=== PATIENT | male | born 1965 | race Caucasian/White ===

== ENCOUNTER 2018-10-27 20:23 | Inpatient (IN) | payer OTHER ==
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
--- OUTSIDE RECORDS SUMMARY | 2018-10-27 20:26 | XMS REPORT | Summary of Care ---
:1965 Author Organization [facility] Address [address] [place] [id number]- Encounter HQ Sandriner_malia(FIN) [id number] Date(s): 05/25/18 - 05/28/[address] Professional Services provided by [facility] [place] [address]- Encounter Diagnosis Left renal mass (Discharge Diagnosis) - 05/25/18 Discharge Disposition: Home or Self Care Attending Physician: Tej Cabrera DO Admitting Physician: Tej Cabrera DO Referring Physician: Davis Melendrez MD Vital Signs Most recent to oldest [Reference 1 2 3 Range]: Height 172.72 cm (05/25/18 10:45 PM) Temperature Oral [96.4-99.1 DegF] 99 DegF 98.9 DegF 98.8 DegF (05/27/18 11:00 PM) (05/27/18 7:34 PM) (05/27/18 4:54 PM) Blood Pressure [90-140/60-90 121/76 mmHg 122/80 mmHg 126/82 mmHg mmHg] (05/27/18 11:00 PM) (05/27/18 7:34 PM) (05/27/18 4:54 PM) Respiratory Rate [14-20 BRMIN] 18 BRMIN 18 BRMIN 18 BRMIN (05/27/18 11:00 PM) (05/27/18 7:34 PM) (05/27/18 4:54 PM) Peripheral Pulse Rate [60-100 87 bpm 98 bpm 76 bpm bpm] (05/27/18 11:00 PM) (05/27/18 7:34 PM) (05/27/18 4:54 PM) Weight 72.727 kg (05/25/18 10:45 PM) Body Mass Index 24.38 m2 (05/25/18 10:45 PM) Problem List Condition Effective Dates Status Health Status Informant Acute pain(Confirmed) Active Preop examination(Confirmed) Active Allergies, Adverse Reactions, Alerts Substance Reaction Severity Status NKDA Active Medications acetaminophen 650 mg, 2 tab, Route: PO, Drug form: TAB, Q4H, kg, PRN For Temp > 100.4 F, Start date: 05/25/18 16:18:00 GENERAL MEDICAL PRACTITIONER, Duration: 30 day, Stop date: 06/24/18 16:17: 00 CDT Notes: Do not exceed 4 gm/day. (Same as: Tylenol) Start Date: 05/25/18 Stop Date: 05/28/18 Status: Discontinuedaspirin 81 mg, 1 tab, Route: PO, Drug form: ECTAB, BID, Dosing Weight 72.727, kg, Start date: 05/26/18 17:00:00 GENERAL MEDICAL PRACTITIONER, Duration: 30 day, Stop date: 06/25/18 9:00:00 CDT Notes: Do not crush or chew.(Same As: Ecotrin) Start Date: 05/26/18 Stop Date: 05/28/18 Status: Discontinuedaspirin 81 mg tablet, enteric coated 81 mg=1 tab, PO, BID, # 60 tab, 3 Refill(s), Pharmacy: [facility] Start Date: 05/28/18 Stop Date: 05/28/18 Status: Discontinuedaspirin 81 mg tablet, enteric coated 81 mg=1 tab, PO, BID, please take for only 21 days, # 42 tab, 0 Refill(s), Pharmacy: [facility], Please give for only 21 days for dvt prophylaxis. Do not dispense the 30 day supply. Please call patient to report it is ready for pickup and... Start Date: 05/28/18 Stop Date: 06/18/18 Status: OrderedDextrose 50% in Water (bolus) IV 25 gm, 50 mL, Route: IVP, Drug Form: INJ, kg, PRN, PRN Blood Glucose Results, Start date: 05/25/18 16:18:00 GENERAL MEDICAL PRACTITIONER, Duration: 30 day, Stop date: 06/24/18 17:17: 00 CDT Start Date: 05/25/18 Stop Date: 05/28/18 Status: DiscontinuedDextrose 50% in Water (bolus) IV 12.5 gm, 25 mL, Route: IVP, Drug Form: INJ, kg, PRN, PRN Blood Glucose Results, Start date: 05/26/1915:18:00 GENERAL MEDICAL PRACTITIONER, Duration: 30 day, Stop date: 06/24/18 17:17: 00 CDT Start Date: 05/25/18 Stop Date: 05/28/18 Status: DiscontinuedDilaudid 4 mg, 2 tab, Route: PO, Drug form: TAB, ONCE, Dosing Weight 72.727, kg, Start date: 05/27/18 10:07:00 GENERAL MEDICAL PRACTITIONER, Stop date: 05/27/18 10:07:00 GENERAL MEDICAL PRACTITIONER Notes: (Same as: Dilaudid) Start Date: 05/27/18 Stop Date: 05/27/18 Status: DeletedDilaudid 4 mg, 2 tab, Route: PO, Drug form: TAB, ONCE, Dosing Weight 72.727, kg, Start date: 05/27/18 17:30:00 GENERAL MEDICAL PRACTITIONER, Stop date: 05/27/18 17:30:00 GENERAL MEDICAL PRACTITIONER Notes: (Same as: Dilaudid) Start Date: 05/27/18 Stop Date: 05/27/18 Status: Completeddocusate 100 mg, Route: PO, BID, kg, Start date: 05/25/18 17:00:00 GENERAL MEDICAL PRACTITIONER, Duration: 30 day , Stop date: 199:00:00 CDT Start Date: 05/25/18 Stop Date: 05/25/18 Status: Canceleddocusate 100 mg, 1 cap, Route: PO, Drug form: CAP, BID, kg, Start date: 05/25/18 17:00: 00 GENERAL MEDICAL PRACTITIONER, Duration: 30 day, Stop date: 06/24/18 9:00:00 CDT Notes: (Same as: Colace) (Do Not Crush) Start Date: 05/25/18 Stop Date: 05/28/18 Status: Discontinuedgabapentin 300 mg, 1 cap, Route: PO, Drug form: CAP, Q8Hnow, kg, Start date: 05/25/18 17:00 :00 GENERAL MEDICAL PRACTITIONER, Duration: 30 day, Stop date: 06/24/18 13:00:00 CDT Notes: (Same as: Neurontin) Start Date: 05/25/18 Stop Date: 05/28/18 Status: Discontinuedgabapentin 300 mg oral capsule 300 mg=1 cap, PO, Q8Hnow, # 21 cap, 0 Refill(s), Pharmacy: [facility] Start Date: 05/27/18 Stop Date: 06/03/18 Status: Orderedglucagon 1 mg, Route: IM, Drug form: PDR/INJ, PRN, kg, PRN Blood Glucose Results, Start date: 05/25/18 16:18:00 GENERAL MEDICAL PRACTITIONER, Duration: 30 day, Stop date: 06/24/18 17:17:00 CDT Start Date: 05/25/18 Stop Date: 05/28/18 Status: Discontinuedibuprofen 400 mg oral tablet 800 mg, 1 tab, Route: PO, Drug form: TAB, ONCE, Dosing Weight 72.727, kg, Start date: 05/26/18 23:29:00 GENERAL MEDICAL PRACTITIONER, Stop date: 05/26/18 23:29:00 GENERAL MEDICAL PRACTITIONER Notes: (Same as: Motrin)"Do Not Crush" Take with food. Start Date: 05/26/18 Stop Date: 05/27/18 Status: CompletedLidoderm 5% topical film (patch) 1 patch, Route: TOP, Bedtime, Drug form: FILM, Start date: 05/25/18 17:00:00 GENERAL MEDICAL PRACTITIONER , Duration: 30 day, Stop date: 06/22/18 21:00:00 CDT Notes: Apply only once for up to 12 hours in [id number] period (12 hours on and 12 hours off).(Same as: Lidoderm)"Remove old patch before application of new patch" Start Date: 05/25/18 Stop Date: 05/28/18 Status: DiscontinuedLovenox 40 mg, 0.4 mL, Route: SUB-Q, Drug form: INJ, [id number], kg, Start date: 05/25/18 19:00:00 GENERAL MEDICAL PRACTITIONER, Duration: 30 day, Stop date: 06/23/18 19:00:00 CDT Notes: (Same as: Lovenox) Start Date: 05/25/18 Stop Date: 05/26/18 Status: Discontinuedmorphine Sulfate 4 mg, 1 mL, Route: IVP, Drug form: SOLN, ONCE, kg, Priority: STAT, Start date: 05/25/18 5:29:00 GENERAL MEDICAL PRACTITIONER,Stop date: 05/25/18 5:29:00 GENERAL MEDICAL PRACTITIONER Notes: (Same as:MORPhine Sulfate) Start Date: 05/25/18 Stop Date: 05/25/18 Status: Completedondansetron 4 mg, 2 mL, Route: IVP, Drug form: INJ, ONCE, kg, Priority: STAT, Start date: 5:29:00 GENERAL MEDICAL PRACTITIONER, Stop date: 05/25/18 5:29:00 GENERAL MEDICAL PRACTITIONER Notes: (Same as: Zofran) MEDICATION WASTE Product Size: 4 mgProduct Wasted: ___ mg Start Date: 05/25/18 Stop Date: 05/25/18 Status: Completedondansetron 4 mg, 2 mL, Route: IVP, Drug form: INJ, Q8H, kg, PRN Nausea & Vomiting, Start date: 05/25/18 16:18:00 GENERAL MEDICAL PRACTITIONER, Duration: 30 day, Stop date: 06/24/18 16:17: 00 CDT Notes: (Same as: Zofran) MEDICATION WASTE Product Size: 4 mgProduct Wasted: 0 mg Start Date: 05/25/18 Stop Date: 05/28/18 Status: DiscontinuedoxyCODONE 5 mg immediate release 10 mg, 2 tab, Route: PO, Drug form: TAB, Q4H, kg, PRN Pain Score 7-10, Start date: 05/25/18 16:54:00CST, Duration: 30 day, Stop date: 06/24/18 16:53:00 CDT Notes: (Same as: Roxicodone) Start Date: 05/25/18 Stop Date: 05/28/18 Status: DiscontinuedoxyCODONE 5 mg immediate release 5 mg, 1 tab, Route: PO, Drug form: TAB, Q4H, kg, PRN Pain Score 4-6, Start date : 05/25/18 16:54:00 GENERAL MEDICAL PRACTITIONER, Duration: 30 day, Stop date: 06/24/18 16:53:00 CDT Notes: (Same as: Roxicodone) Start Date: 05/25/18 Stop Date: 05/28/18 Status: DiscontinuedoxyCODONE 5 mg oral capsule, immediate release 5 mg=1 cap, PO, Q6H, PRN Pain, X 7 day, # 28 cap, 0 Refill(s), given to patient Start Date: 05/27/18 Stop Date: 06/03/18 Status: Orderedremove patch 1 patch, Route: TOP, Daily, Drug form: ERFILM, Start date: 05/25/18 20:00:00 GENERAL MEDICAL PRACTITIONER , Duration: 30 day, Stop date: 06/23/18 9:00:00 CDT Notes: Remove patch 12 hours after application each day. Start Date: 05/25/18 Stop Date: 05/28/18 Status: DiscontinuedSaline Flush 0.9% 10 mL, Route: IVP, Drug Form: INJ, kg, PRN, PRN Line Flush, Start date: 5:29:00 GENERAL MEDICAL PRACTITIONER, Duration: 30 day, Stop date: 06/24/18 6:28:00 CDT Notes: Same as: BD Posiflush Sterile Start Date: 05/25/18 Stop Date: 05/28/18 Status: Discontinuedsenna 17.2 mg, 2 tab, Route: PO, Drug Form: TAB, kg, Bedtime, Start date: 05/25/18 21: 00:00 GENERAL MEDICAL PRACTITIONER, Duration:30 day, Stop date: 06/23/18 21:00:00 CDT Notes: (Same as: Senokot) Start Date: 05/25/18 Stop Date: 05/28/18 Status: Discontinuedtizanidine 2 mg, 1 tab, Route: PO, Drug form: TAB, Q6H, kg, PRN Muscle Spasms, Start date: 05/25/18 16:54:00 GENERAL MEDICAL PRACTITIONER, Duration: 30 day, Stop date: 06/24/18 16:53:00 CDT Notes: (Same As: Zanaflex) Start Date: 05/25/18 Stop Date: 05/28/18 Status: Discontinuedtizanidine 2 mg oral tablet 2 mg=1 tab, PO, Q6H, PRN Muscle Spasms, # 28 tab, 0 Refill(s), Pharmacy: [facility] Start Date: 05/27/18 Stop Date: 06/03/18 Status: OrderedVisipaque 320mg/ml 120 mL, Route: IVP, Drug Form: SOLN, kg, ONCALL, STAT, Start date: 05/25/18 6:46 :00 GENERAL MEDICAL PRACTITIONER, Duration: 1doses or times, Dose=2.2ml/kg, Max qfpj=[id number] -- "To be infused by Radiology Staff ONLY" Start Date: 05/25/18 Stop Date: 05/25/18 Status: Completed Results BLOOD BANK RESULTS Most recent to oldest [Reference Range]: 1 ABO/Rh O POS *Unknown* (05/25/18 7:12 AM) Antibody Scrn Negative (05/25/18 7:12 AM) ELECTROLYTES Most recent to oldest [Reference Range]: 1 Sodium Lvl [135-145 mEq/L] 138 mEq/L (05/25/18 7:25 AM) Potassium Lvl [3.5-5.1 mEq/L] 4.2 mEq/L (05/25/18 7:25 AM) Chloride Lvl [95-109 mEq/L] 104 mEq/L (05/25/18 7:25 AM) CO2 [24-32 mEq/L] 27 mEq/L (05/25/18 7:25 AM) AGAP [10.0-20.0 mEq/L] 11.2 mEq/L (05/25/18 7:25 AM) CHEM PANEL Most recent to oldest [Reference Range]: 1 Creatinine Lvl [0.50-1.40 mg/dL] 0.82 mg/dL (05/25/18 7:25 AM) eGFR 101 mL/min/1.73m2 1 *NA* (05/25/18 7:25 AM) BUN [7-22 mg/dL] 21 mg/dL (05/25/18 7:25 AM) Glucose Lvl [70-99 mg/dL] 93 mg/dL (05/25/18 7:25 AM) Calcium Lvl [8.5-10.5 mg/dL] 8.7 mg/dL (05/25/18 7:25 AM) Lactic Acid Lvl [0.5-2.2 mMol/L] 0.8 mMol/L (05/25/18 7:25 AM) 1Result Comment: The eGFR is calculated using the CKD-EPI formula. In most young , healthy individualsthe eGFR will be >90 mL/min/1.73m2. The eGFR declines with age. An eGFR of 60-89 may be normal insome populations, particularly the elderly, for whom the CKD-EPI formula has not been extensively validated. Use of the eGFR is not recommended in the following populations: Individuals with unstable creatinine concentrations, including patients and those with serious co-morbid conditions. Patients with extremes in muscle mass or diet. The data above are obtained from the National Kidney Disease Education Program ( NKDEP) which additionally recommends that when the eGFR is used in patients with extremes of body mass index for purposesof drug dosing, the eGFR should be multiplied by the estimated BMI.DRUG SCREEN Most recent to oldest [Reference Range]: 1 U Amph Scr [Negative] Positive *ABN* (05/25/18 5:34 PM) U Marixa Scr [Negative] Negative *NA* (05/25/18 5:34 PM) U Benzodiaz Scr [Negative] Negative *NA* (05/25/18 5:34 PM) U Cannab Scr [Negative] Negative *NA* (05/25/18 5:34 PM) U Cocaine Scr [Negative] Negative *NA* (05/25/18 5:34 PM) U Opiate Scr [Negative] Positive *ABN* (05/25/18 5:34 PM) U Phencyclidine Scr [Negative] Negative *NA* (05/25/18 5:34 PM) UDS Note See Note (05/25/18 5:34 PM) TOXICOLOGY Most recent to oldest [Reference Range]: 1 Etoh (%) <0.003 % (05/25/18 7:25 AM) Ethanol Lvl <3.0 mg/dL (05/25/18 7:25 AM) URINE AND STOOL Most recent to oldest [Reference Range]: 1 UA Turbidity [Clear] Clear (05/25/18 5:34 PM) UA Color [Yellow] Yellow *NA* (05/25/18 5:34 PM) UA pH [5.0-8.0] 6.0 (05/25/18 5:34 PM) UA Spec Grav [<=1.030] 1.020 (05/25/18 5:34 PM) UA Glucose [Negative] Negative (05/25/18 5:34 PM) UA Blood [Negative] Negative (05/25/18 5:34 PM) UA Ketones [Negative] Negative *NA* (05/25/18 5:34 PM) UA Protein [Negative] Negative (05/25/18 5:34 PM) UA Urobilinogen [0.1-1.0 EU/dL] 0.2 EU/dL (05/25/18 5:34 PM) UA Bili [Negative] Negative *NA* (05/25/18 5:34 PM) UA Leuk Est [Negative] Negative (05/25/18 5:34 PM) UA Nitrite [Negative] Negative (05/25/18 5:34 PM) UA WBC [None Seen /HPF] 0-2 /HPF (05/25/18 5:34 PM) UA RBC [0-2] None Seen (05/25/18 5:34 PM) UA Bacteria [None Seen] None Seen (05/25/18 5:34 PM) UA Sq Epi [Few] None Seen (05/25/18 5:34 PM) UA Mucus [None Seen /LPF] Few /LPF (05/25/18 5:34 PM) HEMATOLOGY Most recent to oldest [Reference Range]: 1 WBC [3.7-10.4 K/CMM] 9.6 K/CMM (05/25/18 7:25 AM) RBC [4.70-6.10 M/CMM] 4.68 M/CMM *LOW* (05/25/18 7:25 AM) Hgb [14.0-18.0 g/dL] 14.3 g/dL (05/25/18 7:25 AM) Hct [42.0-54.0 %] 41.5 % *LOW* (05/25/18 7:25 AM) MCV [80.0-94.0 fL] 88.6 fL (05/25/18 7:25 AM) MCH [27.0-31.0 pg] 30.5 pg (05/25/18 7:25 AM) MCHC [32.0-36.0 g/dL] 34.5 g/dL (05/25/18 7:25 AM) RDW [11.5-14.5 %] 14.6 % *HI* (05/25/18 7:25 AM) MPV [7.4-10.4 fL] 7.0 fL *LOW* (3/6/19 7:25 AM) Platelet [133-450 K/CMM] 308 K/CMM (05/25/18 7:25 AM) Segs [45.0-75.0 %] 62.4 % (05/25/18 7:25 AM) Lymphocytes [20.0-40.0 %] 22.4 % (05/25/18 7:25 AM) Monocytes [2.0-12.0 %] 12.9 % *HI* (05/25/18 7:25 AM) Eosinophils [0.0-4.0 %] 1.5 % (05/25/18 7:25 AM) Basophils [0.0-1.0 %] 0.8 % (05/25/18 7:25 AM) Neutrophils # [1.5-8.1 K/CMM] 6.0 K/CMM (05/25/18 7:25 AM) Lymphocytes # [1.0-5.5 K/CMM] 2.2 K/CMM (05/25/18 7:25 AM) Monocytes # [0.0-0.8 K/CMM] 1.2 K/CMM *HI* (05/25/18 7:25 AM) Eosinophils # [0.0-0.5 K/CMM] 0.1 K/CMM (05/25/18 7:25 AM) Basophils # [0.0-0.2 K/CMM] 0.1 K/CMM (05/25/18 7:25 AM) ACT (TEG) Rapid [86-118 seconds] 105 seconds (05/25/18 7:25 AM) Split Point Rapid 0.5 minutes *NA* (05/25/18 7:25 AM) R-time Rapid [0.4-0.7 minutes] 0.6 minutes (05/25/18 7:25 AM) K-time Rapid [0.6-2.3 minutes] 0.9 minutes (05/25/18 7:25 AM) Angle Rapid [64-80 degrees] 78 degrees (05/25/18 7:25 AM) Max Amplitude Rapid [52-71 mm] 69 mm (05/25/18 7:25 AM) G-value Rapid [5.0-11.6 K d/sc] 11.3 K d/sc (05/25/18 7:25 AM) Estimated % Lysis Rapid [0.0-7.5 %] 1.7 % (05/25/18 7:25 AM) Immunizations Given and Recorded Vaccine Date Status Refusal Reason influenza virus vaccine, inactivated 05/27/18 Given Procedures Procedure Date Related Diagnosis Body Site Status Spinal fusion Completed Social History Social History Type Response Substance Abuse Use: Current. Type: Methamphetamines. Alcohol Never Smoking Status Current every day smoker; Type: Cigarettes; Previous treatment : None; Ready to change: No; Concerns about tobacco use in household: No; Exposure to Tobacco Smoke None; Cigarette Smoking Last 365 Days No; Reg Smoking Cessation Counseling No entered on: 05/25/18 Assessment and Plan Extracted from: Title: Prevent Clot Study ASA 81mg BID Author: Kati Orr Date: 05/26/18 ASA ARM Patient signed consent for participation in the PREVENT Clot study on 05/26/18 and has been randomized to the Aspirin Group. Please STOP Enoxaparin STAT. The patient will receive Aspirin (ASA) 81mg BID for DVT PPX. *Please discharge patient with the assigned DVT PPX for 21 days* For questions, please call: [phone] Extracted from: Title: History and Physical Author: Jenelle Witt MD [...] CXR, echo, etc. 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
--- OUTSIDE RECORDS SUMMARY | 2018-10-27 20:27 | XMS REPORT ---
:1965 [facility] Address [address] [place] [address] Care Team Providers Name Role Phone Unavailable Unavailable Unavailable Problems This patient has no known problems. Allergies, Adverse Reactions, Alerts This patient has no known allergies or adverse reactions. Medications This patient has no known medications.
[2018-10-27] MEDS ORDERED: NA CHLORIDE 0.9% 2,000 ML ONE (21:06)
[2018-10-27] MEDS ORDERED: CLINDAMYCIN 900MG/D5W 900 MG/50 ML IVPB IV ONE (21:06)
[2018-10-27] MEDS ORDERED: NA CHLORIDE 0.9% 250 ML ONE (21:06)
[2018-10-27 22:16] LABS: Absolute Lymphocytes (CBC) 0.7 K/uL (0.7-4.9); Basophils % 0.1 % (0-1.3); Hematocrit 37.2 % (39.6-49.0); Lymphocytes % 3.3 % (15.3-44.8); MPV 8.2 fL (7.6-11.3); RBC Red Blood Cell Count 4.12 M/uL (4.33-5.43)
[2018-10-27 22:20] LABS: ALT/SGPT 20 U/L (12-78); AST/SGOT 17 U/L (15-37); Albumin 2.8 g/dL (3.4-5.0); Alkaline Phosphatase 139 U/L (45-117); BUN Blood Urea Nitrogen 18 mg/dL (7-18); Bicarbonate 27 mmol/L (21-32); Bilirubin Total 0.4 mg/dL (0.2-1.0); Glucose Level 139 mg/dL (74-106); Potassium 3.8 mmol/L (3.5-5.1); Protein, Total 7.5 g/dL (6.4-8.2); Sodium Level 144 mmol/L (136-145)
--- NOTE | 2018-10-27 22:58 | EDPHYS ---
Physician Documentation [facility] Name: Joby Pena Age: 53 yrs Sex: Male : 1965 Arrival Date: 10/27/2018 Time: 20:30 Bed 13 Private MD: ED Physician Dionicio Alcantar Historical: - Allergies: 10/27 20:35 No Known Allergies; aj - Home Meds: 20:36 gabapentin oral oral [Active]; aj - PMHx: 20:35 Hepatitis; aj - PSHx: 20:35 back; aj - Immunization history:: Last tetanus immunization: unknown. - Social history:: Smoking status: Patient uses tobacco products, smokes one pack cigarettes per day. - Ebola Screening: : Patient negative for fever greater than or equal to 101.5 degrees Fahrenheit, and additional compatible Ebola Virus Disease symptoms Patient denies exposure to infectious person Patient denies travel to an Ebola-affected area in the 21 days before illness onset No symptoms or risks identified at this time. Vital Signs: 20:36 BP 140 / 80; Pulse 120; Resp 19; Temp 98.6; Pulse Ox 98% on R/A; Weight 74.84 kg; aj Height 5 ft. 8 in. (172.72 cm); 21:30 BP 122 / 85; Pulse 90; Resp 16; Pulse Ox 100% on R/A; tr5 22:30 BP 123 / 84; Pulse 93; Resp 16; Pulse Ox 100% on R/A; oe 23:45 BP 134 / 88; Pulse 95; Resp 16; Pulse Ox 100% on R/A; oe 10/28 00:38 BP 131 / 88; Pulse 111; Resp 18; Pulse Ox 99% on R/A; oe 10/27 20:36 Body Mass Index 25.09 (74.84 kg, 172.72 cm) aj MDM: 10/27 21:01 Patient medically screened. ps1 10/27 21:02 Order name: CBC with Diff; Complete Time: 00:09 ps1 10/27 21:02 Order name: CMP; Complete Time: 22:40 ps1 10/27 21:02 Order name: Lactate; Complete Time: 22:40 ps1 10/27 21:02 Order name: Procalcitonin; Complete Time: 22:58 ps1 10/27 21:42 Order name: Blood Culture Adult (2) ps1 10/27 22:21 Order name: Manual Differential; Complete Time: 00:09 EDMS 10/28 02:33 Order name: Urine Dipstick--Ancillary (enter results) cm6 10/28 03:18 Order name: Urine Drug Screen; Complete Time: 04:32 EDMS 10/28 04:12 Order name: Urine Dipstick-Ancillary; Complete Time: 04:32 EDMS 10/28 05:18 Order name: Urinalysis; Complete Time: 06:19 EDMS 10/28 05:32 Order name: CBC with Automated Diff; Complete Time: 06:03 EDMS 10/28 05:45 Order name: Basic Metabolic Panel; Complete Time: 06:03 EDMS 10/28 05:45 Order name: Magnesium; Complete Time: 06:03 EDMS 10/28 06:09 Order name: Urine Microscopic Only; Complete Time: 06:19 EDMS 10/27 21:02 Order name: Ankle Left 3 View XRAY ps1 10/27 23:17 Order name: Extremity Venous Uni Ltd EDMS 10/28 11:59 Order name: Basic Metabolic Panel EDMS Administered Medications: 21:47 Drug: NS 0.9% (30 ml/kg) 30 ml/kg Route: IV; Rate: bolus; Site: left forearm; rr5 23:00 Follow up: IV Status: Completed infusion bp 22:30 Drug: Clindamycin 900 mg Route: IVPB; Infused Over: 30 mins; Site: left antecubital; tr5 10/28 00:32 Follow up: Rate change calculated rate; IV Status: Completed infusion tr5 Disposition: 10/27/18 22:57 Hospitalization ordered by Francisco Trejo for Inpatient Admission. Preliminary diagnosis is Right leg cellulitis. - Bed requested for Telemetry/MedSurg (Inpatient). - Status is Inpatient Admission. bp - Condition is Stable. - Problem is new. - Symptoms are unchanged. UTI on Admission? No Signatures: Dispatcher [employer] EDWV Shania Warner Amanda RN RN Meg Ashby, PRAVEEN-C CAR TOP BOLTER-Csnw Irvin Kovacs RN RN bp Dionicio Alcantar MD MD ps1 Roque, Raymond RN RN rr5 Enoc Iqbal RN RN tr5 Corrections: (The following items were deleted from the chart) 10/27 23:28 22:57 Hospitalization Ordered by Francisco Trejo DO for Inpatient Admission. Preliminary snw diagnosis is Right leg cellulitis. Bed requested for Telemetry/MedSurg (Inpatient). Status is Inpatient Admission. Condition is Stable. Problem is new. Symptoms are unchanged. UTI on Admission? No. ps1 10/28 11:28 10/27 23:28 10/27/2018 22:57 Hospitalization Ordered by Francisco Trejo DO for Inpatient bd Admission. Preliminary diagnosis is Right leg cellulitis. Bed requested for [facility] ER HOLD. Status is Inpatient Admission. Condition is Stable. Problem is new. Symptoms are unchanged. UTI on Admission? No. snw 10/28 12:35 11:28 10/27/2018 22:57 Hospitalization Ordered by Francisco Trejo DO for Inpatient bp Admission. Preliminary diagnosis is Right leg cellulitis. Bed requested for Telemetry/MedSurg (Inpatient). Status is Inpatient Admission. Condition is Stable. Problem is new. Symptoms are unchanged. UTI on Admission? No. bd
--- NOTE | 2018-10-27 22:58 | ER ---
Nurse's Notes [facility] Name: Joby Pena Age: 53 yrs Sex: Male : 1965 Arrival Date: 10/27/2018 Time: 20:30 Bed 13 Private MD: Diagnosis: Right leg cellulitis Presentation: 10/27 20:34 Presenting complaint: Patient states: Left leg swelling for 2 days. Transition of care: aj patient was not received from another setting of care. Onset of symptoms was October 25, 2018. Risk Assessment: Do you want to hurt yourself or someone else? Patient reports no desire to harm self or others. Initial Sepsis Screen: Does the patient meet any 2 criteria? HR > 90 bpm. Does the patient have a suspected source of infection? Yes:. Care prior to arrival: None. 20:34 Method Of Arrival: Ambulatory 20:34 Acuity: GALILEA 3 Triage Assessment: 20:35 General: Appears in no apparent distress. comfortable, Behavior is calm, cooperative, aj appropriate for age. Pain: Complains of pain in left leg. Neuro: Level of Consciousness is awake, alert, obeys commands, Oriented to person, place, time, situation, Appropriate for age. Respiratory: Airway is patent Respiratory effort is even, unlabored, Respiratory pattern is regular, symmetrical. Derm: Skin is intact, is healthy with good turgor, Skin is pink, warm \T\ dry. normal. Historical: - Allergies: 20:35 No Known Allergies; aj - Home Meds: 20:36 gabapentin oral oral [Active]; aj - PMHx: 20:35 Hepatitis; - PSHx: 20:35 back; aj - Immunization history:: Last tetanus immunization: unknown. - Social history:: Smoking status: Patient uses tobacco products, smokes one pack cigarettes per day. - Ebola Screening: : Patient negative for fever greater than or equal to 101.5 degrees Fahrenheit, and additional compatible Ebola Virus Disease symptoms Patient denies exposure to infectious person Patient denies travel to an Ebola-affected area in the 21 days before illness onset No symptoms or risks identified at this time. Screenin:45 Abuse screen: Denies threats or abuse. Nutritional screening: No deficits noted. tr5 Tuberculosis screening: No symptoms or risk factors identified. Fall Risk Fall in past 12 months (25 points). No secondary diagnosis (0 pts). No IV (0 pts). Ambulatory Aid- None/Bed Rest/Nurse Assist (0 pts). Gait- Normal/Bed Rest/Wheelchair (0 pts) Mental Status- Oriented to own ability (0 pts). Total Luevano Fall Scale indicates No Risk (0-24 pts). Assessment: 20:45 General: Appears uncomfortable, unkempt, Behavior is calm, cooperative, appropriate for tr5 age. Pain: Complains of pain in lateral aspect of right calf, right ankle, lateral aspect of right foot, right calf, right Achilles, right heel, medial aspect of right calf, medial aspect of right foot, right de la rosa, anterior aspect of right ankle and dorsum of right foot Pain does not radiate. Pain currently is 8 out of 10 on a pain scale. Quality of pain is described as heavy, squeezing, Pain began 2-3 days ago. Neuro: Level of Consciousness is awake, alert, obeys commands, Oriented to person, place, time, Early Interventionist are equal bilaterally Moves all extremities. Speech is normal. Cardiovascular: Heart tones present Bruits absent Capillary refill < 3 seconds Pulses are all present. Edema is 4+ to left ankle, left foot and left toes. Respiratory: Airway is patent Trachea midline Breath sounds are clear bilaterally. GI: No signs and/or symptoms were reported involving the gastrointestinal system. : No signs and/or symptoms were reported regarding the genitourinary system. EENT: No signs and/or symptoms were reported regarding the EENT system. Derm: Skin temperature is hot LLE warmth noted. Musculoskeletal: Capillary refill < 3 seconds, Range of motion: intact in all extremities, Swelling present in left foot and left leg. 22:09 Reassessment: Patient and/or family updated on plan of care and expected duration. Pain tr5 level reassessed. Patient is alert, oriented x 3, equal unlabored respirations, skin warm/dry/pink. 23:00 Reassessment: Patient and/or family updated on plan of care and expected duration. Pain tr5 level reassessed. Patient is alert, oriented x 3, equal unlabored respirations, skin warm/dry/pink. 10/28 00:00 Reassessment: Patient and/or family updated on plan of care and expected duration. Pain tr5 level reassessed. 01:00 Reassessment: Patient and/or family updated on plan of care and expected duration. Pain tr5 level reassessed. Patient is alert, oriented x 3, equal unlabored respirations, skin warm/dry/pink. 07:01 Reassessment: PT ON ER HOLD, SEE [facility]. bp Vital Signs: 10/27 20:36 BP 140 / 80; Pulse 120; Resp 19; Temp 98.6; Pulse Ox 98% on R/A; Weight 74.84 kg; aj Height 5 ft. 8 in. (172.72 cm); 21:30 BP 122 / 85; Pulse 90; Resp 16; Pulse Ox 100% on R/A; tr5 22:30 BP 123 / 84; Pulse 93; Resp 16; Pulse Ox 100% on R/A; oe 23:45 BP 134 / 88; Pulse 95; Resp 16; Pulse Ox 100% on R/A; oe 10/28 00:38 BP 131 / 88; Pulse 111; Resp 18; Pulse Ox 99% on R/A; oe 10/27 20:36 Body Mass Index 25.09 (74.84 kg, 172.72 cm) aj ED Course: 10/27 20:30 Patient arrived in ED. ds1 20:35 Triage completed. aj 20:36 Arm band placed on left wrist. Patient placed in an exam room. aj 20:37 Enoc Iqbal, RN is Primary Nurse. tr5 20:45 Placed in gown. Bed in low position. Call light in reach. Door closed. Noise minimized. tr5 20:47 Dionicio Alcantar MD is Attending Physician. ps1 21:20 Inserted saline lock: 20 gauge in left antecubital area, using aseptic technique. Blood oe collected. 21:37 Ankle Left 3 View XRAY In Process Unspecified. EDMS 22:00 Awaiting lab results. tr5 22:19 Notified ED physician of a critical lab result(s). WBC 23.[address] Alcantar. tr5 22:46 Appears to be sleeping. tr5 22:57 Francisco Trejo DO is Hospitalizing Provider. ps1 10/28 01:00 No provider procedures requiring assistance completed. Patient admitted, IV remains in tr5 place. 01:30 Awaiting bed assignment. tr5 Administered Medications: 10/27 21:47 Drug: NS 0.9% (30 ml/kg) 30 ml/kg Route: IV; Rate: bolus; Site: left forearm; rr5 23:00 Follow up: IV Status: Completed infusion bp 22:30 Drug: Clindamycin 900 mg Route: IVPB; Infused Over: 30 mins; Site: left antecubital; tr5 10/28 00:32 Follow up: Rate change calculated rate; IV Status: Completed infusion tr5 Outcome: 10/27 22:57 Decision to Hospitalize by Provider. ps1 10/28 01:00 Admitted to ER Hold. Please see [facility] for further documentation. tr5 Condition: stable Instructed on the need for admit. 12:35 Patient left the ED. bp Signatures: Dispatcher [employer] EDMS Malou Pang RN RN Emilie Arenas ds1 Adis Timmons Brian, RN RN bp Dionicio Alcantar MD MD ps1 Kilo Egan RN RN rr5 Enoc Iqbal RN RN tr5 Corrections: (The following items were deleted from the chart) 02:25 10/27 23:00 Reassessment: Patient and/or family updated on plan of care and expected tr5 duration. Pain level reassessed. Patient is alert, oriented x 3, equal unlabored respirations, skin warm/dry/pink. tr5
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
[2018-10-27 23:56] LABS: Blood Morphology Comment NOT SEEN (NOT SEEN); Platelet Estimate ADEQ
[2018-10-28] MEDS ORDERED: ALBUTEROL 2.5 MG/3 ML NEB SOL NEB PRN (00:46)
[2018-10-28] MEDS ORDERED: IPRATROPIUM BROM 0.5MG/2.5ML NEB PRN (00:46)
[2018-10-28] MEDS ORDERED: ONDANSETRON 4 MG/2 ML VIAL IV PRN (00:46)
[2018-10-28 02:41] VITALS: BMI 25.0
[2018-10-28] MEDS ORDERED: NA CHLORIDE 0.9% 1,000 ML ONE (02:42)
[2018-10-28] MEDS: NA CHLORIDE 0.9% 1,000 ML IV SCH ×2 (03:00→14:07)
[2018-10-28 03:17] LABS: Barbiturates NEGATIVE (NEGATIVE); Benzodiazepines NEGATIVE (NEGATIVE); Cocaine POSITIVE (NEGATIVE); METHAMPHETAM POSITIVE (NEGATIVE); Methadone NEGATIVE (NEGATIVE); Opiates NEGATIVE (NEGATIVE); Phencyclidine NEGATIVE (NEGATIVE); THC Cannibis NEGATIVE (NEGATIVE)
[2018-10-28 04:11] LABS: Urine Blood NEGATIVE (NEG); Urine Glucose 1+ (NEG); Urine Protein 2+ (NEG)
[2018-10-28 05:05] LABS: Urine Appearance CLEAR; Urine Blood NEGATIVE (NEG); Urine Color DK YELLOW; Urine Glucose 2+ (NEG); Urine Protein 1+ (NEG); Urine Specific Gravity >=1.030 (1.005-1.030)
[2018-10-28 05:16] LABS: Urine Microscopic Reflex ORDER UMIC
[2018-10-28 05:17] LABS: Urine Bilirubin 1+ (NEG)
[2018-10-28 05:30] LABS: Basophils % 0.1 % (0-1.3); Hematocrit 31.4 % (39.6-49.0); Lymphocytes % 5.1 % (15.3-44.8); MPV 7.8 fL (7.6-11.3); RBC Red Blood Cell Count 3.54 M/uL (4.33-5.43)
[2018-10-28 05:45] LABS: BUN Blood Urea Nitrogen 15 mg/dL (7-18); Bicarbonate 25 mmol/L (21-32); Glucose Level 97 mg/dL (74-106); Magnesium 1.9 mg/dL (1.8-2.4); Potassium 3.6 mmol/L (3.5-5.1); Sodium Level 141 mmol/L (136-145)
[2018-10-28] MEDS ORDERED: HYDROCODONE/APAP 7.5/325 MG TAB ONE (05:49)
[2018-10-28] MEDS: HYDROCODONE/APAP 7.5/325 MG TAB PO PRN ×2 (05:52→17:42)
[2018-10-28] MEDS ORDERED: VANCOMYCIN 1.25 GM in NA CHLORIDE 0.9% 500 ML IVPB SCH (06:00)
[2018-10-28 06:09] LABS: Urine Bacteria <20 /HPF (NONE SEEN); Urine Culture Reflex Order NOT NEEDED; Urine Mucus 3+ /HPF (NONE SEEN); Urine RBC <5 /HPF (NONE SEEN)
[2018-10-28] MEDS ORDERED: POTASSIUM 25 MEQ EFFERV TAB PO ONE (06:32)
[2018-10-28] MEDS: ENOXAPARIN 40 MG/0.4 ML SQ SCH (09:00)
[2018-10-28] MEDS: THIAMINE HCL 100 MG TABLET PO SCH (09:00)
[2018-10-28] MEDS ORDERED: CEFEPIME 1 GM/VIAL IV SCH (09:00)
[2018-10-28] MEDS: TRAMADOL HCL 50 MG TAB PO PRN ×2 (09:00→20:22)
[2018-10-28] MEDS: NICOTINE 21 MG/PAT TD SCH (09:00)
[2018-10-28] MEDS: GABAPENTIN 300 MG CAP PO SCH ×3 (09:00→20:15)
[2018-10-28] MEDS: FOLIC ACID 1 MG TABLET PO SCH (09:00)
[2018-10-28] MEDS: CEFEPIME/SWI 1gm 10 ML IV SCH ×2 (09:00→20:15)
[2018-10-28] MEDS: FAMOTIDINE 20 MG TAB PO SCH ×2 (09:00→20:15)
[2018-10-28] MEDS ORDERED: THIAMINE HCL 100 MG TABLET ONE (09:17)
[2018-10-28] MEDS ORDERED: GABAPENTIN 300 MG CAP ONE (09:17)
[2018-10-28] MEDS ORDERED: FOLIC ACID 1 MG TABLET ONE (09:17)
[2018-10-28] MEDS ORDERED: NICOTINE 21 MG/PAT TD ONE (09:17)
[2018-10-28] MEDS ORDERED: ENOXAPARIN 40 MG/0.4 ML SQ ONE (09:18)
[2018-10-28] MEDS ORDERED: FAMOTIDINE 20 MG TAB ONE (09:18)
--- NOTE | 2018-10-28 09:20 | RAD REPORT ---
EXAM DESCRIPTION: US - Extremity Venous Uni Ltd - 10/28/2018 8:43 am CLINICAL HISTORY: Left lower extremity pain and swelling COMPARISON: None. TECHNIQUE: Real-time sonographic evaluation of the left lower extremity deep venous system was perfo rmed. FINDINGS: Normal compressibility, flow augmentation, phasic flow and spontaneous flow are identified in the left lower extremity common femoral, superficial femoral, popliteal and posterior tibial vein s. No intraluminal filling defects seen. Interstitial edema is seen with no drainable fluid collectio n in the soft tissues. Multiple left groin lymph nodes are present largest measuring 2.8 x 1.1 cm. These are most likely mai ctive. These are not clearly malignant. IMPRESSION: No DVT in the left lower extremity. Multiple left groin lymph nodes are most likely reactive.
[2018-10-28] MEDS ORDERED: TRAMADOL HCL 50 MG TAB ONE (09:26)
--- NOTE | 2018-10-28 10:48 | RAD REPORT ---
EXAM DESCRIPTION: RAD - Ankle Left 3 View - 10/27/2018 9:37 pm CLINICAL HISTORY: 53 years Male, PAIN COMPARISON: None. FINDINGS: There is chronic deformity of the distal fibular diaphysis. Previous fracture. No acute fr actures demonstrated. There are small calcaneal spurs. There is severe soft tissue swelling about the medial and lateral malleoli. IMPRESSION: 1. Severe soft tissue swelling. 2. Chronic deformity of the distal fibula previous fracture. Electronically signed by: Raleigh Gupta MD 10/27/2018 10:53 PM CDT Due to temporary technical issues with the PACS/Fluency reporting system, reports are being signed by the in house radiologist as a courtesy to ensure prompt reporting. The interpreting radiologist is f ully responsible for the content of the report.
[2018-10-28 11:57] LABS: BUN Blood Urea Nitrogen 13 mg/dL (7-18); Bicarbonate 25 mmol/L (21-32); Glucose Level 153 mg/dL (74-106); Potassium 3.7 mmol/L (3.5-5.1); Sodium Level 141 mmol/L (136-145)
--- NOTE | 2018-10-28 14:29 | PN ---
Date of Progress Note: 10/28/2018 Subjective: Patient is seen and examined. Chart reviewed and case discussed with RN. Patient is so mewhat somnolent, complaining of redness, swelling, and pain of his left lower extremity. Medications: List reviewed. Physical Examination: Vital Signs: Temperature 98.9, heart rate 90, blood pressure 99/64, respirations 16, O2 at 97% on ro om air. General: Awake, alert, oriented x3, in some mild distress, ill-appearing male. CV: S1, S2. Regular rate and rhythm. Peripheral pulses present. Respiratory: Clear to auscultation bilaterally. No wheezing or stridor. No use of accessory muscle s. Gastrointestinal: Abdomen is soft, nontender, nondistended. Positive bowel sounds. No guarding or rigidity. Extremities: No clubbing or cyanosis. Patient has edema of bilateral lower extremities, left worse than right. No calf tenderness. Neuro: Cranial nerves 2 through 12 intact grossly. No focal neurological deficits. Speech is isi l. Skin: Patient has erythema of the left lower extremity with multiple abrasions, swelling, and tender ness to palpation. Laboratory Data: WBC 19.7, H and H of 11.4 and 31.4, platelets 305, neutrophils 83%, no bands. Sodi um 141, potassium 3.7, chloride 109, CO2 of 25, BUN 13, creatinine 0.71, glucose 153, calcium 8.4. B lood cultures pending. Doppler shows no DVT in the left lower extremity. He does have reactive lymp h nodes in the groin. Ankle x-ray of the left shows severe soft tissue swelling, chronic deformity o f the distal fibula, previous fracture, personally reviewed. Assessment And Plan: A 53-year-old male with: 1.Cellulitis of the left lower extremity. We will continue with IV antibiotics. Cultures are pendi ng. Patient had multiple falls and abrasions leading to the cellulitis. Continue with IV fluids. 2.Previous chronic fracture of the distal fibula with chronic deformity. No acute intervention. Co ntinue with pain control. 3.Polysubstance abuse with cocaine and methamphetamine. 4.Chronic pain syndrome. We will continue gabapentin. 5.Mild dehydration. Continue IV fluid. 6.Nicotine dependence with cigarette smoking. Counseled. We will continue with nicotine patch. 7.Deep venous thrombosis prophylaxis with Lovenox. Continue local wound care for the left lower extremity. Continue IV antibiotics. Followup on blood cultures. Likely discharge in the next 48 to 72 hours depending on clinical response. We will have social work assist patient with his living situation, currently homeless. Patient states he has [employer] before. They only let him stay for 3 days, and he states that he cannot go back for 1 year. Patient does not have any friends or family that he can live with at this time. Patient re yasmin at risk for worsening of his wound as he is homeless and is not able to provide adequate wound care for himself. Ideally, would need to be placed for wound care. /DAISY Voice ID: [id number] Report ID: [id number]
[2018-10-28] MEDS: VANCOMYCIN 1.25 GM in NA CHLORIDE 0.9% 250 ML IVPB SCH (17:44)
[2018-10-29] MEDS: ACETAMINOPHEN 500 MG TAB PO PRN ×4 (01:12→22:55)
[2018-10-29] MEDS: NA CHLORIDE 0.9% 1,000 ML IV SCH ×2 (06:00→16:46)
[2018-10-29] MEDS: VANCOMYCIN 1.25 GM in NA CHLORIDE 0.9% 250 ML IVPB SCH ×2 (06:01→17:24)
[2018-10-29 06:08] LABS: Absolute Lymphocytes (CBC) 1.2 K/uL (0.7-4.9); Basophils % 0.4 % (0-1.3); Hematocrit 31.5 % (39.6-49.0); Lymphocytes % 7.7 % (15.3-44.8); MPV 8.1 fL (7.6-11.3); RBC Red Blood Cell Count 3.55 M/uL (4.33-5.43)
[2018-10-29 06:31] LABS: BUN Blood Urea Nitrogen 9 mg/dL (7-18); Bicarbonate 23 mmol/L (21-32); Glucose Level 87 mg/dL (74-106); Magnesium 1.7 mg/dL (1.8-2.4); Potassium 3.6 mmol/L (3.5-5.1); Sodium Level 139 mmol/L (136-145)
[2018-10-29] MEDS: ENOXAPARIN 40 MG/0.4 ML SQ SCH (08:45)
[2018-10-29] MEDS: NICOTINE 21 MG/PAT TD SCH (08:46)
[2018-10-29] MEDS: FAMOTIDINE 20 MG TAB PO SCH ×2 (08:46→20:59)
[2018-10-29] MEDS: THIAMINE HCL 100 MG TABLET PO SCH (08:47)
[2018-10-29] MEDS: CEFEPIME/SWI 1gm 10 ML IV SCH ×2 (08:47→20:56)
[2018-10-29] MEDS: GABAPENTIN 300 MG CAP PO SCH ×3 (08:47→20:59)
[2018-10-29] MEDS: FOLIC ACID 1 MG TABLET PO SCH (08:50)
[2018-10-29] MEDS ORDERED: POTASSIUM 25 MEQ EFFERV TAB PO ONE (09:00)
[2018-10-29] MEDS ORDERED: MAGNESIUM SULFATE 1 gm IVPB 1 GM/100 ML BAG IV ONE (09:00)
[2018-10-29] MEDS: HYDROCODONE/APAP 7.5/325 MG TAB PO PRN ×2 (15:29→20:58)
--- NOTE | 2018-10-29 17:36 | PN ---
Date of Progress Note: 10/29/2018 Subjective: Patient is seen and examined. Chart reviewed and case discussed with RN. Patient state s his swelling has improved, however, not completely gone. The patient still has a low-grade fevers. Medications: List reviewed. Physical Examination: Vital Signs: Temperature 99, heart rate 80, blood pressure 120/77, respirations 18. O2 of 95% on ro om air. General: Awake, alert, and oriented x3, in no acute distress. CV: S1, S2. Peripheral pulses present. No murmurs. Respiratory: Moving air well bilaterally. No wheezing or stridor. Gastrointestinal: Abdomen is soft, nontender, nondistended. Positive bowel sounds. No guarding or rigidity. Extremities: No clubbing, cyanosis. The patient has peripheral edema bilateral lower extremities. Skin: Left lower extremity erythema, tenderness to palpation. Multiple abrasions on both lower extr emities. Neurologic: Nonfocal. Laboratory Data: Sodium 139, potassium 3.6, chloride 107, CO2 of 23, BUN 9, creatinine 0.55. Glucos e 87, calcium 7.8, magnesium 1.7. WBC 15, H and H of 10.9 and 31.5, platelets 357, neutrophils 81%. Blood cultures, no growth to date. Assessment: A 53-year-old male with. 1.Cellulitis of the left lower extremity, improving with IV antibiotic therapy. Continue with local wound care as well. White count is trending down. Cultures are negative to date. ID has been cons ulted. 2.Chronic fracture of the distal fibula with deformity. Continue with pain control. This is from p revious trauma. 3.Polysubstance abuse with cocaine and methamphetamine, counseled. 4.Chronic pain syndrome. Continue gabapentin. 5.Mild dehydration. We will continue with IV fluids. 6.Nicotine dependence with cigarette smoking, counseled. 7.Deep venous thrombosis prophylaxis with Lovenox. Plan: Likely discharge in the next 24 to 48 hours. ID consultation. table worker packager to help with carolyn cement. SA/MODL Voice ID: [id number] Report ID: [id number]
[2018-10-29 18:37] LABS: Absolute Lymphocytes (CBC) 1.1 K/uL (0.7-4.9); Basophils % 0.2 % (0-1.3); Hematocrit 33.6 % (39.6-49.0); Lymphocytes % 7.4 % (15.3-44.8); RBC Red Blood Cell Count 3.77 M/uL (4.33-5.43)
[2018-10-29 18:53] LABS: ALT/SGPT 17 U/L (12-78); AST/SGOT 17 U/L (15-37); Albumin 1.8 g/dL (3.4-5.0); Alkaline Phosphatase 139 U/L (45-117); BUN Blood Urea Nitrogen 9 mg/dL (7-18); Bicarbonate 25 mmol/L (21-32); Bilirubin Total 0.2 mg/dL (0.2-1.0); CKMB Creatine Kinase MB < 1.0 ng/mL (0.3-3.6); Glucose Level 129 mg/dL (74-106); Potassium 3.6 mmol/L (3.5-5.1); Sodium Level 138 mmol/L (136-145)
--- NOTE | 2018-10-29 19:10 | RAD REPORT ---
EXAM DESCRIPTION: RAD - Chest Single View - 10/29/2018 6:49 pm CLINICAL HISTORY: fluid overload Chest pain. COMPARISON: <Comparisons> FINDINGS: Portable technique limits examination quality. Mild bilateral pulmonary opacities are noted suspicious for mild pulmonary edema. Mild atelectasis is also likely present in both lung bases. The heart is mildly prominent size. Trace pleural effusions suspected. No displaced fractures. IMPRESSION: Mild CHF versus volume overload pattern.
[2018-10-29 19:14] LABS: Blood Morphology Comment NOT SEEN (NOT SEEN); Platelet Estimate ADEQ; Urine White Blood Cell Casts OK
[2018-10-30] MEDS: TRAMADOL HCL 50 MG TAB PO PRN ×2 (01:16→16:52)
[2018-10-30] MEDS: NA CHLORIDE 0.9% 1,000 ML IV SCH (01:16)
[2018-10-30] MEDS ORDERED: HYDROCORTISONE SUC 100 MG INJ IV ONE (01:36)
[2018-10-30] MEDS ORDERED: ALBUMIN HUMAN 25% 100 ML IV ONE (01:36)
[2018-10-30] MEDS ORDERED: FUROSEMIDE 20 MG/ 2ML VIAL IV ONE (01:36)
[2018-10-30] MEDS: HYDROCODONE/APAP 7.5/325 MG TAB PO PRN ×3 (03:52→21:02)
[2018-10-30] MEDS: VANCOMYCIN 1.5 GM in NA CHLORIDE 0.9% 500 ML IVPB SCH ×2 (05:01→16:53)
[2018-10-30 06:05] LABS: Absolute Lymphocytes (CBC) 0.6 K/uL (0.7-4.9); Basophils % 0.3 % (0-1.3); Hematocrit 33.4 % (39.6-49.0); Lymphocytes % 3.9 % (15.3-44.8); RBC Red Blood Cell Count 3.76 M/uL (4.33-5.43)
[2018-10-30 06:14] LABS: BUN Blood Urea Nitrogen 9 mg/dL (7-18); Bicarbonate 25 mmol/L (21-32); Glucose Level 145 mg/dL (74-106); Potassium 3.8 mmol/L (3.5-5.1); Sodium Level 140 mmol/L (136-145)
[2018-10-30] MEDS ORDERED: POTASSIUM CL SA 10 MEQ TAB PO ONE (06:20)
[2018-10-30 06:27] LABS: Blood Morphology Comment NOT SEEN (NOT SEEN); Platelet Estimate ADEQ; Toxic Granulation 1+
[2018-10-30] MEDS: ENOXAPARIN 40 MG/0.4 ML SQ SCH (08:13)
[2018-10-30] MEDS: NICOTINE 21 MG/PAT TD SCH (08:13)
[2018-10-30] MEDS: THIAMINE HCL 100 MG TABLET PO SCH (08:14)
[2018-10-30] MEDS: FAMOTIDINE 20 MG TAB PO SCH ×2 (08:14→21:03)
[2018-10-30] MEDS: FOLIC ACID 1 MG TABLET PO SCH (08:14)
[2018-10-30] MEDS: GABAPENTIN 300 MG CAP PO SCH ×3 (08:14→21:01)
[2018-10-30] MEDS: CEFEPIME/SWI 1gm 10 ML IV SCH ×2 (08:14→21:03)
[2018-10-30] MEDS: JUVEN PACKET PO SCH ×2 (08:15→21:00)
--- NOTE | 2018-10-30 15:01 | PN ---
Date of Progress Note: 10/30/2018 Subjective: Patient is seen and examined. Chart reviewed and case discussed with RN. Patient had s ome difficulty breathing yesterday, who looked more lethargic and had complained of generalized malai se and swelling. Chest x-ray was done, which showed mild CHF. The patient was given Lasix and impro lance. Medications: List reviewed. Physical Examination: Vital Signs: Temperature 98, heart rate 86, blood pressure 141/80, respirations 18, O2 of 95% on jason m air. General: Awake, alert, oriented x3, in some mild distress, ill-appearing male. CV: S1, S2. Regular rate and rhythm. Peripheral pulses present. Respiratory: Diminished breath so unds. Some crackles heard. No wheezing or stridor. Gastrointestinal: Abdomen is soft, nontender, nondistended. Positive bowel sounds. Extremities: No clubbing, cyanosis. Patient has diffuse peripheral edema, improved. Skin: Patient has wrinkles appearing, indicating decreased swelling of his lower and upper extremiti es. Neurologic: Nonfocal. Patient does have erythema of the left lower extremity with multiple abrasion s on both lower extremities, improving. Laboratory Data: Sodium 140, potassium 3.8, chloride 107, CO2 of 25, BUN 9, creatinine 0.67, glucose 145, lactate 1.3, calcium 8.4, magnesium 2. Procalcitonin 0.23. WBC 16.4, H and H 11.9 and 33.4, p latelets 383, neutrophils 93%, 1% band. Blood cultures, no growth to date. Chest x-ray from 019, shows mild CHF versus volume overload pattern. Assessment And Plan: A 53-year-old male with: 1.Left lower extremity cellulitis, improving. We will continue with IV antibiotics and follow up on cultures, no growth to date. ID consultation. 2.Chronic fracture of the distal fibula with deformity. We will continue with pain control. 3.Acute congestive heart failure exacerbation, unknown ejection fraction. We will continue with IV Lasix, fluid restriction. Monitor I's and O's. 4.Polysubstance abuse with cocaine and methamphetamine. Counseled. 5.Chronic pain syndrome. We will continue gabapentin. 6.Mild dehydration, improving. Avoid IV fluids due to congestive heart failure. 7.Nicotine dependence. Cigarette smoking counseled. 8.Anasarca secondary to congestive heart failure and volume overload, improving with Lasix. 9.Deep venous thrombosis prophylaxis with Lovenox. Plan: PT eval. Patient will need placement for his wounds. He states that he may be able to stay w ith a friend or family member for a few days as he is homeless at this time. Follow up with NICOLA vasquez. /DAISY Voice ID: [id number] Report ID: [id number]
[2018-10-30] MEDS: CARVEDILOL 6.25 MG TAB PO SCH (21:01)
[2018-10-30] MEDS ORDERED: HYDROCODONE/APAP 5/325 MG TAB PO ONE ×2 (22:24→23:10)
[2018-10-31] MEDS: ACETAMINOPHEN 500 MG TAB PO PRN ×2 (04:13→11:05)
[2018-10-31 07:11] LABS: BUN Blood Urea Nitrogen 9 mg/dL (7-18); Bicarbonate 26 mmol/L (21-32); Glucose Level 83 mg/dL (74-106); Potassium 3.9 mmol/L (3.5-5.1); Sodium Level 142 mmol/L (136-145)
[2018-10-31] MEDS: VANCOMYCIN 1.5 GM in NA CHLORIDE 0.9% 500 ML IVPB SCH (07:46)
[2018-10-31 08:00] LABS: Absolute Lymphocytes (CBC) 1.6 K/uL (0.7-4.9); Basophils % 0.5 % (0-1.3); Hematocrit 31.4 % (39.6-49.0); Lymphocytes % 10.6 % (15.3-44.8); RBC Red Blood Cell Count 3.52 M/uL (4.33-5.43)
[2018-10-31] MEDS: ENOXAPARIN 40 MG/0.4 ML SQ SCH (08:43)
[2018-10-31] MEDS: CEFEPIME/SWI 1gm 10 ML IV SCH ×2 (08:43→20:32)
[2018-10-31] MEDS: NICOTINE 21 MG/PAT TD SCH (08:43)
[2018-10-31] MEDS: FOLIC ACID 1 MG TABLET PO SCH (08:44)
[2018-10-31] MEDS: LISINOPRIL 10 MG TAB PO SCH (08:44)
[2018-10-31] MEDS: FAMOTIDINE 20 MG TAB PO SCH ×2 (08:44→20:31)
[2018-10-31] MEDS: CARVEDILOL 6.25 MG TAB PO SCH ×2 (08:44→20:31)
[2018-10-31] MEDS: GABAPENTIN 300 MG CAP PO SCH ×3 (08:45→20:31)
[2018-10-31] MEDS: JUVEN PACKET PO SCH ×2 (08:45→20:31)
[2018-10-31] MEDS: THIAMINE HCL 100 MG TABLET PO SCH (08:45)
[2018-10-31] MEDS: HYDROCODONE/APAP 7.5/325 MG TAB PO PRN ×3 (08:47→20:31)
--- NOTE | 2018-10-31 10:40 | ECHO ---
HEIGHT: 5 ft 8 in WEIGHT: 165 lb 0.08 oz DATE OF STUDY: 10/31/[address]: Zack Solis MD 2-DIMENSIONAL: YES M.MODE: YES DOPPLER: YES COLOR FLOW: YES TDS: PORTABLE: DEFINITY: BUBBLE STUDY: DIAGNOSIS: CONGESTIVE HEART FAILURE CARDIAC HISTORY: CATHERIZATION: NO SURGERY: NO PROSTHETIC VALVE: NO PACEMAKER: NO MEASUREMENTS (cm) DIASTOLIC (NORMALS) SYSTOLIC (NORMALS) IVSd 0.9 (0.6-1.2) LA Diam 3.4 (1.9-4.0) LVEF 67% LVIDd 4.5 (3.5-5.7) LVIDs 2.9 (2.0-3.5) %FS 37% LVPWd 1.0 (0.6-1.2) Ao Diam 3.3 (2.0-3.7) 2 DIMENSIONAL ASSESSMENT: RIGHT ATRIUM: NORMAL LEFT ATRIUM: NORMAL RIGHT VENTRICLE: NORMAL LEFT VENTRICLE: NORMAL TRICUSPID VALVE: NORMAL MITRAL VALVE: NORMAL PULMONIC VALVE: NORMAL AORTIC VALVE: NORMAL PERICARDIAL EFFUSION: NONE AORTIC ROOT: NORMAL LEFT VENTRICULAR WALL MOTION: NORMAL DOPPLER/COLOR FLOW: TRACE MITRAL AND TRICUSPID REGURGITATION. NORMAL RIGHT VENTRICULAR SYSTOLIC PRESSURE. COMMENTS: NORMAL 2-DIMENSIONAL ECHOCARDIOGRAM. TRACE MITRAL AND TRICUSPID REGURGITATION. TECHNOLOGIST: RAEANN THORNE
[2018-10-31 13:41] LABS: Blood Morphology Comment NOT SEEN (NOT SEEN); Platelet Estimate INCR; Platelets, Giant RARE
[2018-10-31] MEDS: TRAMADOL HCL 50 MG TAB PO PRN (17:47)
[2018-10-31] MEDS: VANCOMYCIN 1.75 GM in NA CHLORIDE 0.9% 500 ML IVPB SCH (18:00)
--- NOTE | 2018-10-31 21:16 | PN ---
Date of Progress Note: 10/31/2018 Subjective: Patient seen and examined. Chart reviewed and case discussed with RN. The patient is s till complaining of some generalized malaise. Medications: List reviewed. Physical Examination: Vital Signs: Temperature 97.7, heart rate 74, blood pressure 145/84, respirations 18, O2 of 94% on r oom air. General: Awake, alert, oriented x3, in some mild distress, ill-appearing male. CV: S1, S2. Regular rate and rhythm. Peripheral pulses present. Respiratory: Moving air well bilaterally. No wheezing. Gastrointestinal: Abdomen is soft, nontender, nondistended. Positive bowel sounds. Extremities: No clubbing or cyanosis. The patient has bilateral lower extremity edema, left worse t chatterjee right. Neurologic: Nonfocal. Skin: Left lower extremity edema has significantly improved from previous erythema, which is now min imal. The patient has multiple abrasions on both lower extremities. Laboratory Data: Sodium 142, potassium 3.9, chloride 108, CO2 of 26, BUN 9, creatinine 0.5, glucose 83, calcium 7.7, magnesium 2. WBC 15.6, H and H 10.4 and 31.4, platelets 409, neutrophils 79%. Bloo d cultures, no growth to date. Echocardiogram shows EF of 67%. Trace mitral and tricuspid regurgita tion. Assessment And Plan: A 53-year-old male with. 1.Left lower extremity cellulitis. We will continue with IV antibiotics. Cultures are negative to date. ID consultation pending. We will continue with wound care. 2.Chronic fracture of the distal fibula with deformity. Continue with pain control. 3.Acute congestive heart failure exacerbation. Normal EF. We will continue with Lasix and fluid re striction, likely diastolic dysfunction. 4.Polysubstance abuse with cocaine and methamphetamine. 5.Chronic pain syndrome. Continue gabapentin. 6.Mild dehydration, improved. 7.Nicotine dependence with cigarette smoking, continuous. 8.Anasarca, resolving, likely secondary to congestive heart failure with volume overload. 9.Deep venous thrombosis prophylaxis with Lovenox. plant health manager and social work professor on board with att empting to set up home health for the patient as he is homeless, but states that he can stay with deysi eone he knows for a few days. We will discharge once clinically more improved. SA/MODL Voice ID: [id number] Report ID: [id number]
[2018-11-01] MEDS ORDERED: METOPROLOL TARTRATE 5 MG/5 ML INJ IV STA (04:56)
[2018-11-01] MEDS: VANCOMYCIN 1.75 GM in NA CHLORIDE 0.9% 500 ML IVPB SCH ×2 (05:21→18:03)
[2018-11-01 05:38] LABS: Absolute Lymphocytes (CBC) 1.5 K/uL (0.7-4.9); Basophils % 0.8 % (0-1.3); Hematocrit 34.7 % (39.6-49.0); Lymphocytes % 8.5 % (15.3-44.8); MPV 7.4 fL (7.6-11.3); RBC Red Blood Cell Count 3.93 M/uL (4.33-5.43)
[2018-11-01 05:57] LABS: BUN Blood Urea Nitrogen 10 mg/dL (7-18); Bicarbonate 28 mmol/L (21-32); Glucose Level 85 mg/dL (74-106); Magnesium 1.9 mg/dL (1.8-2.4); Potassium 4.1 mmol/L (3.5-5.1); Sodium Level 137 mmol/L (136-145)
[2018-11-01] MEDS: JUVEN PACKET PO SCH ×2 (09:31→21:00)
[2018-11-01] MEDS: ENOXAPARIN 40 MG/0.4 ML SQ SCH (09:33)
[2018-11-01] MEDS: CEFEPIME/SWI 1gm 10 ML IV SCH (09:33)
[2018-11-01] MEDS: GABAPENTIN 300 MG CAP PO SCH ×3 (09:34→19:36)
[2018-11-01] MEDS: NICOTINE 21 MG/PAT TD SCH (09:34)
[2018-11-01] MEDS: LISINOPRIL 10 MG TAB PO SCH (09:34)
[2018-11-01] MEDS: FUROSEMIDE 20 MG TABLET PO SCH (09:35)
[2018-11-01] MEDS: CARVEDILOL 12.5 MG TAB PO SCH ×2 (09:35→19:36)
[2018-11-01] MEDS: THIAMINE HCL 100 MG TABLET PO SCH (09:36)
[2018-11-01] MEDS: FOLIC ACID 1 MG TABLET PO SCH (09:36)
[2018-11-01] MEDS: FAMOTIDINE 20 MG TAB PO SCH ×2 (09:36→19:35)
[2018-11-01] MEDS: HYDROCODONE/APAP 7.5/325 MG TAB PO PRN ×2 (09:47→19:35)
--- NOTE | 2018-11-01 11:51 | P.PN ---
Subjective Date of Service: 11/01/18 Primary Care Provider: Dr. Ku Chief Complaint: Left lower extremity swelling, pain and erythema Subjective: Other (Patient had fever last night. Edema to the lower extremity improved.) Physical Examination - Vital Signs Temperature: 99.9 F Blood Pressure: 162/90 Pulse: 80 Respirations: 18 Pulse Ox (%): 91 - Physical Exam General: Alert, In no apparent distress, Oriented x3, Cooperative, Disheveled HEENT: Atraumatic Neck: Supple Respiratory: Clear to auscultation bilaterally, Normal air movement Cardiovascular: Normal pulses, Regular rate/rhythm Gastrointestinal: Normal bowel sounds, Soft and benign, Non-distended Integumentary: Other (Left lower extremity edema improved. Erythema also improved. Multiple abrasions to the lower extremity.) - Studies Medications List Reviewed: Yes Assessment & Plan Discharge Plan: Home Plan to discharge in: 48 Hours Physician Review Additional Text: Impression: Left lower extremity cellulitis with chronic fracture of the distal fibula with deformity Acute on chronic diastolic CHF, ejection fraction within normal range, with edema to the lower extremity Substance abuse, positive for cocaine and methamphetamine Tobacco abuse Chronic pain Hypertension, uncontrolled Plan: Left lower extremity cellulitis with chronic fracture of the distal fibula with deformity: Patient had fever this morning. Will recheck blood cultures. Await recommendations by infectious disease. Continue current antibiotic therapy and wound care. Likely discharge with clinical improvement over the next 2 days. Acute on chronic diastolic CHF, ejection fraction within normal range, with edema to the lower extremity: Continue fluid restriction. Will monitor closely. Continue Lasix. Substance abuse, positive for cocaine and methamphetamine: Cessation education addressed in detail. Tobacco abuse: Continue cessation education. Chronic pain: Continue gabapentin. Hypertension on controlled: Continue to adjust medication for better control. Time Spent Managing Pts Care (In Minutes): 55
[2018-11-01 13:57] LABS: Blood Morphology Comment NOT SEEN (NOT SEEN); Platelet Estimate INCR
[2018-11-01] MEDS: PIPER/TAZO/NS 3.375gm 3.375 GM/100 ML BAG IVPB SCH (17:16)
--- NOTE | 2018-11-01 18:43 | PN ---
Subjective: The patient is lying in bed, continued to have discomfort in his left leg. Denies any h eadache, nausea, vomiting, chest pain, abdominal pain, constipation, or diarrhea. Objective: Vital Signs: Temperature last night was 100.3. Vital signs currently are 99.3, pulse 76 , respirations 18, blood pressure . No new changes in examination. Extremities: Left leg with slightly decreased swelling and continue to have erythematous changes and tenderness. Laboratory Data: Shows WBC 17,700, hemoglobin 12.2, platelets are 489. Chemistry shows sodium 137, potassium 4.1, chloride 100, bicarb 28, BUN 10, creatinine , glucose is 85. Assessment And Plan: Left lower extremity cellulitis. Continue vancomycin. We will change cefepime to Zosyn 3.375 g IV q.8 hours to increase the spectrum of the antibiotic therapy. Keep leg elevated when possible. We will follow the patient as needed. Consider transferring to long-term acute care . SENG/DAISY Voice ID: [id number] Report ID: [id number]
--- NOTE | 2018-11-01 20:36 | RAD REPORT ---
EXAM DESCRIPTION: CT - Head Brain Wo Cont - 11/01/2018 8:27 pm CLINICAL HISTORY: severe headache COMPARISON: No comparisons TECHNIQUE: All CT scans are performed using dose optimization technique as appropriate and may inclu de automated exposure control or mA/KV adjustment according to patient size. FINDINGS: No intracranial hemorrhage, hydrocephalus or extra-axial fluid collection.Rounded hypodens e areas in both medial temporal lobes likely dilated Virchow Darrell spaces.No areas of brain edema or evidence of midline shift. The paranasal sinuses and mastoids are clear. The calvarium is intact. IMPRESSION: No acute intracranial abnormality. If clinical symptomology persists, consider MR brain imaging followup.
[2018-11-01] MEDS: ACETAMINOPHEN 500 MG TAB PO PRN (21:01)
[2018-11-02] MEDS: PIPER/TAZO/NS 3.375gm 3.375 GM/100 ML BAG IVPB SCH ×3 (01:20→17:43)
[2018-11-02] MEDS: HYDROCODONE/APAP 7.5/325 MG TAB PO PRN ×3 (01:33→17:01)
[2018-11-02] MEDS: VANCOMYCIN 1.75 GM in NA CHLORIDE 0.9% 500 ML IVPB SCH ×2 (06:00→17:43)
[2018-11-02 06:23] LABS: Absolute Lymphocytes (CBC) 1.3 K/uL (0.7-4.9); Basophils % 0.9 % (0-1.3); Hematocrit 35.4 % (39.6-49.0); Lymphocytes % 9.2 % (15.3-44.8); MPV 7.1 fL (7.6-11.3); RBC Red Blood Cell Count 3.98 M/uL (4.33-5.43)
[2018-11-02 06:46] LABS: BUN Blood Urea Nitrogen 12 mg/dL (7-18); Bicarbonate 29 mmol/L (21-32); Glucose Level 93 mg/dL (74-106); Potassium 4.3 mmol/L (3.5-5.1); Sodium Level 138 mmol/L (136-145)
[2018-11-02] MEDS: CARVEDILOL 12.5 MG TAB PO SCH ×2 (08:11→21:46)
[2018-11-02] MEDS: ENOXAPARIN 40 MG/0.4 ML SQ SCH (08:11)
[2018-11-02] MEDS: FAMOTIDINE 20 MG TAB PO SCH ×2 (08:11→21:47)
[2018-11-02] MEDS: FOLIC ACID 1 MG TABLET PO SCH (08:12)
[2018-11-02] MEDS: GABAPENTIN 300 MG CAP PO SCH ×3 (08:12→21:47)
[2018-11-02] MEDS: NICOTINE 21 MG/PAT TD SCH (08:12)
[2018-11-02] MEDS: LISINOPRIL 10 MG TAB PO SCH (08:12)
[2018-11-02] MEDS: THIAMINE HCL 100 MG TABLET PO SCH (08:12)
[2018-11-02] MEDS: FUROSEMIDE 20 MG TABLET PO SCH (08:12)
[2018-11-02] MEDS: JUVEN PACKET PO SCH ×2 (09:00→21:00)
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
[2018-11-02] MEDS: TRAMADOL HCL 50 MG TAB PO PRN ×2 (11:29→23:57)
--- NOTE | 2018-11-02 12:31 | P.PN ---
Subjective Date of Service: 11/02/18 Primary Care Provider: Dr. Ku Chief Complaint: Left lower extremity swelling, pain and erythema Subjective: Doing well, Other (Overall improved.) Physical Examination - Vital Signs Temperature: 99.6 F Blood Pressure: 147/83 Pulse: 85 Respirations: 18 Pulse Ox (%): 94 - Physical Exam General: Alert, In no apparent distress, Oriented x3, Cooperative HEENT: Atraumatic Neck: Supple Respiratory: Clear to auscultation bilaterally, Normal air movement Cardiovascular: Normal pulses, Regular rate/rhythm Gastrointestinal: Normal bowel sounds, Soft and benign, Non-distended Integumentary: Other (Erythema, swelling to the left lower extremity improved) Neurological: Normal speech, Normal strength at 5/5 x4 extr, Normal tone - Studies Microbiology Data (last 24 hrs): 10/27/18 21:42 Blood - Blood Aerobic Blood Culture - Final No growth in 5 days. 10/27/18 21:42 Blood - Blood Anaerobic Blood Culture - Final 10/27/18 22:23 Blood - Blood Aerobic Blood Culture - Final No growth in 5 days. 10/27/18 22:23 Blood - Blood Anaerobic Blood Culture - Final No growth in 5 days. Medications List Reviewed: Yes Assessment & Plan Discharge Plan: Home Plan to discharge in: 24 Hours Physician Review Additional Text: Impression: Left lower extremity cellulitis with chronic fracture of the distal fibula with deformity Acute on chronic diastolic CHF, ejection fraction within normal range, with edema to the lower extremity Substance abuse, positive for cocaine and methamphetamine Tobacco abuse Chronic pain Hypertension, uncontrolled Plan: Left lower extremity cellulitis with chronic fracture of the distal fibula with deformity: White count has improved. So far blood cultures negative. Elevate leg when sitting or lying down. Will discuss with infectious disease. Anticipate discharge likely tomorrow with oral medication pending clinical improvement. Acute on chronic diastolic CHF, ejection fraction within normal range, with edema to the lower extremity: Continue fluid restriction. Will monitor closely. Will adjust Lasix. Substance abuse, positive for cocaine and methamphetamine: Cessation education addressed in detail. Tobacco abuse: Continue cessation education. Chronic pain: Continue gabapentin. Hypertension on controlled: Continue to adjust medication for better control. Time Spent Managing Pts Care (In Minutes): 55
--- NOTE | 2018-11-02 16:26 | PN ---
Subjective: Patient sitting up in bed, not in any acute distress, having lunch. Objective: Vital Signs: Temperature 98, pulse 85, respirations 18, blood pressure 142/89. Lungs: Clear to auscultation. Heart: S1, S2. Regular. Abdomen: Soft, nontender. Bowel sounds present. Extremities: Left leg 2+ edema with erythematous changes, improving. Laboratory Data: Lab data shows WBC 14.2, hemoglobin 12.4, platelets are 506. Chemistry shows sodiu m 138, potassium 4.3, chloride 103, bicarb 29, BUN 12, creatinine 0.59, glucose is 93. Blood culture s are negative. Assessment And Plan: Left lower extremity cellulitis. Decreasing white count after switching to Zos yn. Continue antibiotic and supportive care. Might be able to switch to oral antibiotic on Wednesday. NF/MODL Voice ID: [id number] Report ID: [id number]
[2018-11-02] MEDS ORDERED: ASPIRIN 81 MG CHEWABLE TABLET ONE (17:08)
[2018-11-02] MEDS ORDERED: ASPIRIN EC 81 MG TAB PO ONE (19:42)
[2018-11-02] MEDS: ACETAMINOPHEN 500 MG TAB PO PRN (21:45)
[2018-11-03] MEDS: PIPER/TAZO/NS 3.375gm 3.375 GM/100 ML BAG IVPB SCH ×2 (01:14→09:32)
[2018-11-03] MEDS: HYDROCODONE/APAP 7.5/325 MG TAB PO PRN ×2 (03:48→16:29)
[2018-11-03 06:25] LABS: Absolute Lymphocytes (CBC) 1.9 K/uL (0.7-4.9); Hematocrit 36.3 % (39.6-49.0); Lymphocytes % 12.2 % (15.3-44.8); MPV 7.1 fL (7.6-11.3); RBC Red Blood Cell Count 4.03 M/uL (4.33-5.43)
[2018-11-03 06:40] LABS: BUN Blood Urea Nitrogen 18 mg/dL (7-18); Bicarbonate 30 mmol/L (21-32); Glucose Level 95 mg/dL (74-106); Magnesium 2.3 mg/dL (1.8-2.4); Potassium 4.3 mmol/L (3.5-5.1); Sodium Level 138 mmol/L (136-145)
[2018-11-03] MEDS: VANCOMYCIN 1.75 GM in NA CHLORIDE 0.9% 500 ML IVPB SCH (07:17)
[2018-11-03] MEDS: LISINOPRIL 10 MG TAB PO SCH (08:20)
[2018-11-03] MEDS: CARVEDILOL 12.5 MG TAB PO SCH (08:20)
[2018-11-03] MEDS: FOLIC ACID 1 MG TABLET PO SCH (08:20)
[2018-11-03] MEDS: FAMOTIDINE 20 MG TAB PO SCH (08:21)
[2018-11-03] MEDS: ENOXAPARIN 40 MG/0.4 ML SQ SCH (08:21)
[2018-11-03] MEDS: NICOTINE 21 MG/PAT TD SCH (08:21)
[2018-11-03] MEDS: JUVEN PACKET PO SCH (08:21)
[2018-11-03] MEDS: GABAPENTIN 300 MG CAP PO SCH ×2 (08:21→13:12)
[2018-11-03] MEDS: THIAMINE HCL 100 MG TABLET PO SCH (08:21)
[2018-11-03] MEDS ORDERED: FUROSEMIDE 40 MG TABLET PO SCH (09:00)
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
[2018-11-03 11:10] VITALS: O2SAT 96
[2018-11-03 16:54] VITALS: BP 117/78; TEMP 99.7
== END 2018-11-03 16:42 | disposition home or self-care (01) | DRG 602 ==
LOC: ER 20:23 → ERHOLD 23:15 → 4TH 10-28 12:13
PROVIDERS: ADMIT Family Medicine; ATTEND Family Medicine
DX: L03.116 Cellulitis of left lower limb (principal); I50.33 Acute on chronic diastolic (congestive) heart failure; I11.0 Hypertensive heart disease with heart failure; G89.29 Other chronic pain; F17.210 Nicotine dependence, cigarettes, uncomplicated; R59.0 Localized enlarged lymph nodes; F14.10 Cocaine abuse, uncomplicated; F15.10 Other stimulant abuse, uncomplicated; M21.862 Other specified acquired deformities of left lower leg
CPT/HCPCS: 36415; 70450; 71045; 80048; 80053; 80202; 80307; 81003; 81015; 82553; 83605; 83735; 84145; 85025; 87040; 93306; 93971; 96361; 96365; 96366; 97110; 97116; 97161; 97530; 99285; J0692; J1650; J1720; J1940; J2405; J2543; J3475; J7030; P9047

== ENCOUNTER 2018-12-04 09:25 | Inpatient (IN) | payer OTHER ==
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
--- OUTSIDE RECORDS SUMMARY | 2018-12-04 09:29 | XMS REPORT ---
:1965 [facility] Address [address] [place] [address] Care Team Providers Name Role Phone Unavailable Unavailable Unavailable Problems This patient has no known problems. Allergies, Adverse Reactions, Alerts This patient has no known allergies or adverse reactions. Medications This patient has no known medications.
[2018-12-04 10:39] LABS: Absolute Lymphocytes (CBC) 1.5 K/uL (0.7-4.9); Hematocrit 40.4 % (39.6-49.0); Lymphocytes % 19.1 % (15.3-44.8); MPV 7.7 fL (7.6-11.3)
--- NOTE | 2018-12-04 10:43 | ER ---
Nurse's Notes [facility] Name: Joby Pena Age: 53 yrs Sex: Male : 1965 Arrival Date: 12/04/2018 Time: 09:27 Bed 14 Private MD: Brennon Ku Diagnosis: Cellulitis of left lower limb Presentation: 12/04 09:38 Presenting complaint: Worsening wound on left lower leg x 1 month. Transition of care: hb patient was not received from another setting of care. Onset of symptoms is unknown. Risk Assessment: Do you want to hurt yourself or someone else? Patient reports no desire to harm self or others. Initial Sepsis Screen: Does the patient meet any 2 criteria? No. Patient's initial sepsis screen is negative. Does the patient have a suspected source of infection? No. Patient's initial sepsis screen is negative. Care prior to arrival: None. 09:38 Method Of Arrival: Ambulatory 09:38 Acuity: GALILEA 3 hb Historical: - Allergies: 09:39 No Known Allergies; hb - Home Meds: 12:48 Indomethacin Oral [Active]; Coreg 12.5 mg Oral tab daily [Active]; Lasix 20 mg Oral tab sv 1 tab once daily [Active]; gabapentin 300 mg oral cap twice a day [Active]; lisinopril 10 mg Oral tab 1 tab once daily [Active]; Folic Acid Oral [Active]; - PMHx: 10:45 Hepatitis; Cellulitis; sv - PSHx: 10:45 back; sv - Immunization history:: Adult Immunizations up to date. - Social history:: Smoking status: Patient uses tobacco products, smokes one pack cigarettes per day. - Ebola Screening: : No symptoms or risks identified at this time. Screenin:14 Abuse screen: Denies threats or abuse. Denies injuries from another. Nutritional sv screening: No deficits noted. Tuberculosis screening: No symptoms or risk factors identified. Fall Risk None identified. Assessment: 10:20 General: Appears in no apparent distress. uncomfortable, slender, unkempt, Behavior is sv calm, cooperative, appropriate for age. Pain: Complains of pain in left leg Pain currently is 5 out of 10 on a pain scale. Neuro: Level of Consciousness is awake, alert, obeys commands, Oriented to person, place, time, situation, Moves all extremities. Full function Gait is steady. Cardiovascular: Respiratory: Respiratory effort is even, unlabored, Respiratory pattern is regular, symmetrical. 10:20 Derm: Skin is normal, Wound noted lateral aspect of left calf Wound is open wound noted.sv 13:00 Reassessment: Pt admitted to ER hold, see [facility] for further documentation. jl7 14:25 Reassessment: Attempted to call report, nurse unavailable. jl7 Vital Signs: 09:39 BP 126 / 96; Pulse 82; Resp 16; Temp 98.2; Pulse Ox 100% on R/A; Weight 74.84 kg; hb Height 5 ft. 8 in. (172.72 cm); Pain 5/10; 10:41 BP 139 / 102; Pulse 73; Resp 18; Pulse Ox 100% ; sv 09:39 Body Mass Index 25.09 (74.84 kg, 172.72 cm) hb ED Course: 09:27 Patient arrived in ED. am2 09:27 Brennon Ku DO is Private Physician. am2 09:38 Triage completed. hb 09:39 Arm band placed on. hb 09:40 Gildardo Bird MD is Attending Physician. kdr 09:40 Yoly Guzman, LEE is Primary Nurse. sv 10:14 Patient has correct armband on for positive identification. Bed in low position. Call sv light in reach. Door closed. Head of bed elevated. 10:30 Initial lab(s) drawn, by me, sent to lab. First set of blood cultures drawn by me. sv Inserted saline lock: 20 gauge in left forearm, using aseptic technique. Blood collected. Flushed left forearm with 5 ml normal saline. 10:41 Mei Jauregui MD is Hospitalizing Provider. kdr 10:44 X-ray(s) taken. sv 10:57 Tib Fib Left XRAY Sent. sv 10:57 Chem 7 Sent. sv 10:57 CBC with Diff Sent. sv 10:57 Blood Culture Adult (2) Sent. sv 13:00 No provider procedures requiring assistance completed. Patient admitted, IV remains in jl7 place. intact, No redness/swelling at site. 19:00 Primary Nurse role handed off by Yoly Guzman, LEE sv Administered Medications: 11:44 Drug: Clindamycin 900 mg Route: IVPB; Infused Over: 30 mins; Site: left forearm; jl7 12:15 Follow up: IV Status: Completed infusion; IV Intake: 50ml dm5 12:15 Follow up: Response: No adverse reaction; IV Status: Completed infusion jl7 12:38 Drug: vancoMYCIN 1 grams Route: IVPB; Infused Over: 2 hrs; Site: left forearm; jl7 14:30 Follow up: IV Status: Completed infusion jl7 Intake: 12:15 IV: 50ml; Total: 50ml. dm5 Outcome: 10:42 Decision to Hospitalize by Provider. kdr 13:00 Admitted to ER Hold. Please see [facility] for further documentation. jl7 13:00 Condition: stable 13:00 Discharge instructions given to patient, Instructed on the need for admit, Demonstrated understanding of instructions. 15:03 Patient left the ED. [facility] Signatures: Marry Oscar, RN RN dmYoly Gambino RN Gildardo Gilmore MD MD kdr Baxter, Heather, RN RN Radha Hurd RN RN jl7 Malou Schultz am2 Corrections: (The following items were deleted from the chart) 15:32 10:20 Respiratory: Respiratory effort is even, unlabored, Respiratory pattern is sv regular, symmetrical, sv
--- NOTE | 2018-12-04 10:44 | EDPHYS ---
Physician Documentation [facility] Name: Joby Pena Age: 53 yrs Sex: Male : 1965 Arrival Date: 12/04/2018 Time: 09:27 Bed 14 Private MD: Brennon Ku ED Physician Gildardo Bird HPI: 12/04 10:33 This 53 yrs old Male presents to ER via Ambulatory with complaints of Leg kdr Pain - cellulitis. 10:33 The patient presents with an abscess, pain, swelling, tenderness. The complaints affect kdr the lateral aspect of left calf and left de la rosa. Context: This is an exacerbation of an ongoing problem for which he was recently discharged on abx. Onset: The symptoms/episode began/occurred at an unknown time. Modifying factors: The symptoms are alleviated by nothing. the symptoms are aggravated by nothing. Associated signs and symptoms: Pertinent positives: calf tenderness, swelling, warmth, of the lateral aspect of left calf and left de la rosa. Treatment prior to arrival includes: Was recently on Augmentin and Doxycycline. Severity of symptoms: At their worst the symptoms were mild, in the emergency department the symptoms are unchanged. The patient has experienced similar episodes in the past, a few times. The patient has been recently seen by a physician: The patient has been recently been admitted at [facility], was discharged a couple of weeks ago. Historical: - Allergies: 09:39 No Known Allergies; hb - Home Meds: 12:48 Indomethacin Oral [Active]; Coreg 12.5 mg Oral tab daily [Active]; Lasix 20 mg Oral tab sv 1 tab once daily [Active]; gabapentin 300 mg oral cap twice a day [Active]; lisinopril 10 mg Oral tab 1 tab once daily [Active]; Folic Acid Oral [Active]; - PMHx: 10:45 Hepatitis; Cellulitis; sv - PSHx: 10:45 back; sv - Immunization history:: Adult Immunizations up to date. - Social history:: Smoking status: Patient uses tobacco products, smokes one pack cigarettes per day. - Ebola Screening: : No symptoms or risks identified at this time. ROS: 10:33 Constitutional: Negative for fever, chills, and weight loss, Eyes: Negative for injury, kdr pain, redness, and discharge, Neck: Negative for injury, pain, and swelling, Cardiovascular: Negative for chest pain, palpitations, and edema, Respiratory: Negative for shortness of breath, cough, wheezing, and pleuritic chest pain, Abdomen/GI: Negative for abdominal pain, nausea, vomiting, diarrhea, and constipation, Back: Negative for injury and pain, Neuro: Negative for headache, weakness, numbness, tingling, and seizure activity. Psych: Negative for depression, anxiety, suicide ideation, homicidal ideation, and hallucinations, Allergy/Immunology: Negative for hives, rash, and allergies, Endocrine: Negative for neck swelling, polydipsia, polyuria, polyphagia, and marked weight changes, Hematologic/Lymphatic: Negative for swollen nodes, abnormal bleeding, and unusual bruising. 10:33 MS/extremity: Positive for erythema, pain, swelling, tenderness, warmth, of the lateral aspect of left calf, left lateral ankle and left de la rosa. Exam: 10:33 Constitutional: This is a well developed, well nourished patient who is awake, alert, kdr and in no acute distress. Head/Face: Normocephalic, atraumatic. Eyes: Pupils equal round and reactive to light, extra-ocular motions intact. Lids and lashes normal. Conjunctiva and sclera are non-icteric and not injected. Cornea within normal limits. Periorbital areas with no swelling, redness, or edema. Neck: Trachea midline, no thyromegaly or masses palpated, and no cervical lymphadenopathy. Supple, full range of motion without nuchal rigidity, or vertebral point tenderness. No Meningismus. Chest/axilla: Normal chest wall appearance and motion. Nontender with no deformity. No lesions are appreciated. Cardiovascular: Regular rate and rhythm with a normal S1 and S2. No gallops, murmurs, or rubs. Normal PMI, no JVD. No pulse deficits. Respiratory: Lungs have equal breath sounds bilaterally, clear to auscultation and percussion. No rales, rhonchi or wheezes noted. No increased work of breathing, no retractions or nasal flaring. Abdomen/GI: Soft, non-tender, with normal bowel sounds. No distension or tympany. No guarding or rebound. No evidence of tenderness throughout. Back: No spinal tenderness. No costovertebral tenderness. Full range of motion. Neuro: Awake and alert, GCS 15, oriented to person, place, time, and situation. Cranial nerves II-XII grossly intact. Motor strength 5/5 in all extremities. Sensory grossly intact. Cerebellar exam normal. Normal gait. Psych: Awake, alert, with orientation to person, place and time. Behavior, mood, and affect are within normal limits. Vital Signs: 09:39 BP 126 / 96; Pulse 82; Resp 16; Temp 98.2; Pulse Ox 100% on R/A; Weight 74.84 kg; hb Height 5 ft. 8 in. (172.72 cm); Pain 5/10; 10:41 BP 139 / 102; Pulse 73; Resp 18; Pulse Ox 100% ; sv 09:39 Body Mass Index 25.09 (74.84 kg, 172.72 cm) hb MDM: 10:33 Data reviewed: vital signs, nurses notes, lab test result(s), radiologic studies. kdr Counseling: I had a detailed discussion with the patient and/or guardian regarding: the historical points, exam findings, and any diagnostic results supporting the discharge/admit diagnosis, radiology results. 10:42 Patient medically screened. [facility] 12/04 10:06 Order name: Blood Culture Adult (2) [facility] 12/04 10:06 Order name: CBC with Diff [facility] 12/04 10:06 Order name: Chem 7 kdr 12/04 10:06 Order name: Tib Fib Left XRAY [facility] 12/04 10:43 Order name: CBC with Automated Diff; Complete Time: 11:29 EDDE 12/04 10:53 Order name: Basic Metabolic Panel; Complete Time: 11:29 EDDE 12/04 10:14 Order name: IV Saline Lock; Complete Time: 10:57 12/04 10:14 Order name: Labs collected and sent; Complete Time: 10:57 12/04 10:58 Order name: Diet Heart Healthy; Complete Time: 10:59 12/04 12:34 Order name: RAD EDMS Administered Medications: 11:44 Drug: Clindamycin 900 mg Route: IVPB; Infused Over: 30 mins; Site: left forearm; jl7 12:15 Follow up: IV Status: Completed infusion; IV Intake: 50ml dm5 12:15 Follow up: Response: No adverse reaction; IV Status: Completed infusion jl7 12:38 Drug: vancoMYCIN 1 grams Route: IVPB; Infused Over: 2 hrs; Site: left forearm; jl7 14:30 Follow up: IV Status: Completed infusion jl7 Disposition: 12/04/18 10:42 Hospitalization ordered by Mei Jauregui for Inpatient Admission. Preliminary diagnosis is Cellulitis of left lower limb. - Bed requested for Telemetry/MedSurg (Inpatient). - Status is Inpatient Admission. jl7 - Condition is Fair. - Problem is new. - Symptoms have improved. UTI on Admission? No Signatures: Dispatcher [employer] EDMS Yoly Guzman, RN RN Laura Carrasquillo RN RN Gildardo Bird MD MD [facility] Alicia Chaudhry, RN RN Radha Hurd RN RN jl7 Sherrill Mane Deana RN dm5 Corrections: (The following items were deleted from the chart) 10:47 10:42 Hospitalization Ordered by Mei Jauregui MD for Inpatient Admission. Preliminary eb diagnosis is Cellulitis of left lower limb. Bed requested for Telemetry/MedSurg (Inpatient). Status is Inpatient Admission. Condition is Fair. Problem is new. Symptoms have improved. UTI on Admission? No. kdr 14:11 10:47 12/04/2018 10:42 Hospitalization Ordered by Mei Jauregui MD for Inpatient dw Admission. Preliminary diagnosis is Cellulitis of left lower limb. Bed requested for [email or web address] ER HOLD. Status is Inpatient Admission. Condition is Fair. Problem is new. Symptoms have improved. UTI on Admission? No. eb 15:03 14:11 12/04/2018 10:42 Hospitalization Ordered by Mei Jauregui MD for Inpatient jl7 Admission. Preliminary diagnosis is Cellulitis of left lower limb. Bed requested for Telemetry/MedSurg (Inpatient). Status is Inpatient Admission. Condition is Fair. Problem is new. Symptoms have improved. UTI on Admission? No. dw
[2018-12-04 10:52] LABS: BUN Blood Urea Nitrogen 20 mg/dL (7-18); Bicarbonate 30 mmol/L (21-32); Glucose Level 82 mg/dL (74-106); Potassium 4.1 mmol/L (3.5-5.1); Sodium Level 142 mmol/L (136-145)
--- NOTE | 2018-12-04 11:34 | P.HP ---
Certification for Inpatient With expected LOS: >2 Midnights Patient will require the following post-hospital care: None Practitioner: I am a practitioner with admitting privileges, knowledge of patient current condition, hospital course, and medical plan of care. Services: Services provided to patient in accordance with Admission requirements found in Title 42 Section 412.3 of the Code of Federal Regulations Patient History Date of Service: 12/04/18 Primary Care Provider: Dr. Ku Reason for admission: Failed outpt therapy for cellulitis left lower ext History of Present Illness: Pt presents with tenderness, erythema, edema of left lower lateral leg. Pt has recently been hospitalized and was discharged on Augmentin and Doxy about three weeks ago. Pt state improvement but never resolution of s/s. Pt states s/s began worsening this week. Allergies No Known Allergies Allergy (Verified 10/28/18 02:28) Home Medications: Amoxicillin/Potassium Clav [Augmentin 500-125 Tablet] 1 each PO BID #20 tablet 11/03/18 Aspirin [Aspirin EC 81 MG] 81 mg PO DAILY #90 tablet. 11/03/18 Carvedilol [Coreg*] 12.5 mg PO BID #60 tab 11/03/18 Codeine/APAP [Tylenol W/Codeine #3 tab] 1 tab PO BID #10 tab 11/03/18 Doxycycline Hyclate 100 mg PO BID #20 tablet 11/03/18 Folic Acid 1 mg PO DAILY #90 tablet 11/03/18 Furosemide [Lasix] 20 mg PO DAILY PRN #30 tab 11/03/18 Gabapentin 300 mg PO BID #60 capsule 11/03/18 Lisinopril [Prinivil*] 10 mg PO DAILY #30 tab 11/03/18 Mupirocin Oint [Bactroban 2% Ointment] 8 appl TOP SEECOM #1 tube 11/03/18 Thiamine HCl [Vitamin B-1*] 100 mg PO DAILY #30 tablet 11/03/18 - Past Medical/Surgical History Has patient received pneumonia vaccine in the past: No Diabetic: No -: Chronic pain -: Amphetamine abuse -: Tobacco abuse -: Hep C -: Neck surgery c3-c5 fusion Psychosocial/ Personal History: Patient is homeless. He travels on a bicycle - Family History Mother -: Heart disease, Cancer - Social History Counseled patient to stop smoking for: less than 10 minutes Alcohol use: Yes CD- Drugs: Yes Caffeine use: Yes Place of Residence: Homeless Review of Systems General: Fever Musculoskeletal: Leg Pain (left lateral lower leg with ulceration and tenderness with surrounding erythema) Physical Examination - Vital Signs Temperature: 98.2 F Blood Pressure: 139/102 Pulse: 73 Respirations: 18 Pulse Ox (%): 100 - Physical Exam General: Alert, Oriented x3, Cooperative HEENT: Atraumatic, Normocephalic, PERRLA Neck: Supple, 2+ carotid pulse no bruit Respiratory: Clear to auscultation bilaterally Cardiovascular: Normal pulses Capillary refill: <2 Seconds Gastrointestinal: Normal bowel sounds Musculoskeletal: Swelling, Erythema, Tenderness, Other (to left lateral leg with ulceration x 1 month) Integumentary: Tenderness/swelling, Erythema, Other (ulceration as noted above) Neurological: Normal speech, Normal tone Lymphatics: No axilla or inguinal lymphadenopathy External genitalia: Deferred Rectal: Deferred - Studies Laboratory Data (last 24 hrs) 12/04/18 10:29: Sodium 142, Potassium 4.1, BUN 20 H, Creatinine 0.75, Glucose 82 12/04/18 10:29: WBC 7.9, Hgb 13.9, Hct 40.4, Plt Count 290 Assessment and Plan - Problems (Diagnosis) (1) Cellulitis of lower limb Onset Date: 10/2018 Current Visit: Yes Status: Acute Plan: IVF, IV abx with Vanco and Clinda, Await blood cultures Qualifiers: Laterality: left Qualified Code(s): L03.116 - Cellulitis of left lower limb (2) Lower extremity ulceration Onset Date: 10/2018 Current Visit: Yes Status: Acute Plan: Maintain IVF, IV abx, Consult Dr. Muller re: ulceration for possible surgical washout/wound care Qualifiers: Laterality: left Plan to discharge in: 72 Hours - Advance Directives Does patient have a Living Will: No Does patient have a Durable POA for Healthcare: No
[2018-12-04] MEDS ORDERED: CLINDAMYCIN 900MG/D5W 900 MG/50 ML IVPB IV ONE (11:37)
--- NOTE | 2018-12-04 12:26 | RAD REPORT ---
EXAM DESCRIPTION: RAD - Tib Fib Left - 12/04/2018 10:54 am CLINICAL HISTORY: Pain;Swelling COMPARISON: No comparisons FINDINGS: Focal soft tissue ulceration is seen along the lateral aspect of the distal left leg soft tissues. The underlying fibula demonstrates periosteal thickening and bony remodeling likely related to prior fracture healing. No radiographic finding of osteomyelitis evident. Small calcaneal spurs ev ident.
[2018-12-04] MEDS ORDERED: ACETAMINOPHEN 500 MG TAB PO PRN (12:50)
[2018-12-04] MEDS ORDERED: IPRATROPIUM BROM 0.5MG/2.5ML NEB PRN (12:50)
[2018-12-04] MEDS ORDERED: VANCOMYCIN 1.5 GM in NA CHLORIDE 0.9% 500 ML IVPB SCH (13:00)
[2018-12-04 13:05] VITALS: BMI 24.7
[2018-12-04] MEDS ORDERED: ALBUTEROL 2.5 MG/3 ML NEB SOL NEB PRN (13:22)
[2018-12-04] MEDS: CLINDAMYCIN INJ 600 MG in NA CHLORIDE 0.9% 50 ML IV SCH (17:30)
[2018-12-04 19:52] LABS: Urine Appearance TURBID; Urine Bilirubin NEGATIVE (NEG); Urine Blood NEGATIVE (NEG); Urine Color YELLOW; Urine Glucose 1+ (NEG); Urine Protein TRACE (NEG); Urine Specific Gravity 1.025 (1.005-1.030); Urine pH 6.5 (5.0-7.0)
[2018-12-04 20:17] LABS: Urine Amorphous Sediment 3+ /HPF (NONE SEEN); Urine Bacteria <20 /HPF (NONE SEEN); Urine Culture Reflex Order NOT NEEDED; Urine Mucus SLIGHT /HPF (NONE SEEN); Urine RBC <5 /HPF (NONE SEEN)
[2018-12-04] MEDS: HYDROCODONE/APAP 5/325 MG TAB PO PRN (21:06)
[2018-12-05] MEDS ORDERED: HYDROMORPHONE HCL 1 MG/ML INJ IV ONE (00:14)
[2018-12-05] MEDS: CLINDAMYCIN INJ 600 MG in NA CHLORIDE 0.9% 50 ML IV SCH ×5 (00:30→23:30)
[2018-12-05] MEDS: VANCOMYCIN 1.5 GM in NA CHLORIDE 0.9% 500 ML IVPB SCH ×2 (00:31→13:26)
[2018-12-05] MEDS: HYDROCODONE/APAP 5/325 MG TAB PO PRN ×4 (05:22→22:25)
[2018-12-05 06:34] LABS: Absolute Lymphocytes (CBC) 1.8 K/uL (0.7-4.9); Basophils % 0.8 % (0-1.3); Hematocrit 34.9 % (39.6-49.0); MPV 7.7 fL (7.6-11.3); RBC Red Blood Cell Count 3.87 M/uL (4.33-5.43)
[2018-12-05 06:36] LABS: BUN Blood Urea Nitrogen 16 mg/dL (7-18); Bicarbonate 27 mmol/L (21-32); Glucose Level 140 mg/dL (74-106); Potassium 3.8 mmol/L (3.5-5.1); Sodium Level 140 mmol/L (136-145)
[2018-12-05] MEDS ORDERED: ACETIC ACID 0.25% IRRIG IRR ONE (10:25)
--- NOTE | 2018-12-05 12:22 | P.PN ---
Subjective Date of Service: 12/05/18 Primary Care Provider: Dr. Ku Chief Complaint: Failed outpt therapy for cellulitis left lower ext Subjective: No new changes Patient seen and examined at bedside. Chart reviewed and case discussed with nursing staff. Pending I&D tomorrow with Dr. Muller Complaining of pain Review of Systems 10-point ROS is otherwise unremarkable Physical Examination - Vital Signs Temperature: 98.2 F Blood Pressure: 140/81 Pulse: 79 Respirations: 16 Pulse Ox (%): 98 - Physical Exam General: Alert, In no apparent distress, Oriented x3 HEENT: Atraumatic, PERRLA, EOMI Neck: Supple, JVD not distended Respiratory: Clear to auscultation bilaterally, Normal air movement Cardiovascular: Regular rate/rhythm, Normal S1 S2 Gastrointestinal: Normal bowel sounds, No tenderness Musculoskeletal: No tenderness Integumentary: Other Neurological: Normal speech, Normal tone, Normal affect Lymphatics: No axilla or inguinal lymphadenopathy Assessment And Plan - Current Problems (Diagnosis) (1) Cellulitis of lower limb Onset Date: 10/2018 Status: Acute Plan: We will continue with IV antibiotics. Blood cultures no growth to date. Wound cultures pending Qualifiers: Laterality: left Qualified Code(s): L03.116 - Cellulitis of left lower limb (2) Lower extremity ulceration Onset Date: 10/2018 Status: Acute Plan: We will continue with wound care per Dr. Muller. Continue IV antibiotics. Qualifiers: Laterality: left - Plan Plan: We will continue with wound care and IV antibiotics. Follow up on cultures
--- NOTE | 2018-12-05 13:13 | CON ---
Reason For Consultation: Infected wound, left leg. History Of Present Illness: Patient is a 53-year-old gentleman who had an injury to his left leg jose roximately 5 months ago. Then, about a month ago, he has an infection. He was admitted, was treated with Augmentin and doxycycline and however this past week his pain, swelling, redness increased, cam e to the ER, and was admitted for cellulitis of his left leg. He has an open wound there. There is no purulent discharge. There is no sore throat, runny nose, cough, headaches, or dizziness. No ches t pain. No fever or chills. Review of Systems: Otherwise unremarkable. Past Medical History: Significant for chronic pain, amphetamines abuse, tobacco abuse and hep C. Past Surgical History: Significant for neck surgery. Allergies: NONE. Social History: Patient does drink. He does do amphetamines. He does smoke, was counseled. Physical Examination: Vital Signs: Currently stable. He is afebrile. He is awake, alert, and oriented x3. Head and Neck: Cranial nerves 2 through 12 are grossly within normal limits. No neck masses. No JV D. Throat clear. Neck: Supple. Chest: Clear. Heart: S1, S2. Abdomen: Soft. Extremity: Neurovascularly intact. Dorsalis pedis and posterior tibial pulses are 2+ and equal bila terally. On the left lateral leg there is approximately a 6 x 6 cm area of a stage III wound with la rge amount of necrotic fibrin present in it. There is surrounding erythema, warmth, or edema indurati on. No fluctuance. Laboratory Data: White count is normal. There is no left shift. Chemistry reviewed essentially wit hin normal limits. Patient had an x-ray of the tib-fib which shows focal soft tissue ulceration on t he lateral aspect of the distal left leg and underlying fibula demonstrates periosteal thickening and bony remodeling likely related to prior fracture healing. No radiographic findings of osteo evident , small calcaneal spur evident. Assessment: Infected wound with cellulitis, left lateral leg. Recommendations: Continue antibiotics as ordered. Vancomycin and clindamycin, wound care was ordere d and patient will need surgical debridement of the necrotic material and fibrinous material in the w ound. Patient is too tender to do it at the bedside. Patient understands the risks, benefits, and a lternatives and agrees to procedure. /MODL Voice ID: [id number] Report ID: [id number]
[2018-12-05] MEDS ORDERED: FUROSEMIDE 20 MG TABLET PO PRN (18:36)
[2018-12-05] MEDS: CARVEDILOL 12.5 MG TAB PO SCH (21:08)
[2018-12-05] MEDS: GABAPENTIN 300 MG CAP PO SCH (21:08)
[2018-12-05] MEDS: MORPHINE 2 MG/ML SYR IV PRN (23:31)
[2018-12-06] MEDS: VANCOMYCIN 1.5 GM in NA CHLORIDE 0.9% 500 ML IVPB SCH (01:52)
[2018-12-06] MEDS: CLINDAMYCIN INJ 600 MG in NA CHLORIDE 0.9% 50 ML IV SCH ×3 (05:28→17:45)
[2018-12-06] MEDS: MORPHINE 2 MG/ML SYR IV PRN ×3 (05:28→20:06)
[2018-12-06] MEDS: LISINOPRIL 10 MG TAB PO SCH (07:24)
[2018-12-06] MEDS: FOLIC ACID 1 MG TABLET PO SCH (07:24)
[2018-12-06] MEDS: CARVEDILOL 12.5 MG TAB PO SCH ×2 (07:24→20:07)
[2018-12-06] MEDS: GABAPENTIN 300 MG CAP PO SCH ×2 (07:24→20:06)
[2018-12-06] MEDS ORDERED: Ringers Lactate 1,000 ML IV ONE (09:33)
[2018-12-06] MEDS ORDERED: FENTANYL CITR 100 MCG/2 ML ONE (09:41)
[2018-12-06] MEDS ORDERED: PROPOFOL 200 MG/20 ML VIAL IV ONE (09:41)
[2018-12-06] MEDS ORDERED: LIDOCAINE 1% MPF 5 ML VIAL ONE (09:41)
[2018-12-06] MEDS ORDERED: MIDAZOLAM HCL 2 MG/2 ML INJ ONE (09:41)
[2018-12-06] MEDS: BUPIVACAINE 0.5% PF 10 ML VIAL ONE ×2 (09:48→10:14)
[2018-12-06] MEDS ORDERED: COLLAGENASE 30 GM OINTMENT TOP ONE (10:19)
[2018-12-06] MEDS ORDERED: ONDANSETRON 4 MG/2 ML VIAL ONE (10:24)
--- NOTE | 2018-12-06 10:27 | P.OP ---
Preoperative diagnosis: Infected Wound Left Leg Postoperative diagnosis: same Primary procedure: Excisional Debridement L Leg Wound 5x3 cm to sq Anesthesia: General Estimated blood loss: min Specimen: infected tissue Findings: as above Complications: None Transferred to: Recovery Room Condition: Good
[2018-12-06] MEDS: VANCOMYCIN 1.75 GM in NA CHLORIDE 0.9% 500 ML IVPB SCH (13:24)
[2018-12-06] MEDS: HYDROCODONE/APAP 7.5/325 MG TAB PO PRN (15:38)
[2018-12-06] MEDS: TRAMADOL HCL 50 MG TAB PO PRN (15:54)
--- NOTE | 2018-12-06 20:56 | PN ---
Date of Progress Note: 12/06/2018 Subjective: Patient seen and examined. Chart reviewed and case discussed with RN and Dr. Muller. Korey mario is going for debridement of his leg wound today. Medications: List reviewed. Physical Examination: Vital Signs: Temperature 98.4, heart rate 67, blood pressure 130/84, respirations 18, O2 saturations 99% on room air. GENERAL: Awake, alert, oriented x3. Some mild distress, appears older than stated age, ill-appearin g male. CVS: S1, S2. Regular rate and rhythm. Peripheral pulses weak. Respiratory: Moving air well bilaterally. No wheezing or stridor. Gastrointestinal: Abdomen is soft, nontender, nondistended. Positive bowel sounds. Extremities: No clubbing, cyanosis, or edema except in the left lower extremity. Neuro: Cranial nerves 2 through 12 intact grossly. No focal neurological deficit. Speech is normal . Skin: Left lower extremity wound with some drainage bandaged. Laboratory Data: Labs are pending. Blood cultures no growth to date. Wound cultures growing out Ps eudomonas aeruginosa, pansensitive. Assessment: A 53-year-old male with: 1.Cellulitis of the left lower limb. We will continue with IV antibiotics. Blood cultures no growt h to date. Wound cultures growing pseudomonas. 2.Wound, left lower extremity with ulceration. We will continue with wound care per Dr. Muller. Con tinue IV antibiotics. 3.Methamphetamine abuse, counseled. 4.Nicotine dependence with cigarette smoking, counseled. 5.Chronic pain syndrome of the neck, status post surgery and hardware placement. 6.Hepatitis C, chronic without coma. Patient did fail outpatient treatment with Augmentin and doxyc ycline. Plan: We will continue with wound care and IV antibiotics. Follow up on cultures likely discontinue on oral antibiotics in the next 24 to 48 hours depending on clinical improvement, discharge once patric ared by Surgery. SA/MODL Voice ID: [id number] Report ID: [id number]
--- NOTE | 2018-12-06 22:11 | OP ---
Date of Procedure: 12/06/2018 Surgeon: Kofi Muller MD Preoperative Diagnosis: Infected wound, left leg. Postoperative Diagnosis: Infected wound, left leg. Procedure: Excisional debridement, left leg, infected wound, 5 x 3 cm, down to subcutaneous tissue. Estimated Blood Loss: Minimal. Specimen: Infected tissue. Findings: As above. Anesthesia: General. Complications: None. Disposition: The patient tolerated the procedure in stable condition, taken to Recovery in good gene ral condition. Description Of Procedure: Patient was brought to the OR and placed in supine position. General anes thesia was begun. Patient was prepped and draped in the usual sterile fashion. Marcaine 0.5% was in filtrated locally and then 15 blade and curette were used to debride all the necrotic tissue down thr ough the deep subcutaneous tissue to the fascia. Cultures sent. Wound irrigated. Bleeding controll ed with cautery. Collagenase dressing was applied. The patient was awakened and taken to Recovery in g ood general condition. /MODL Voice ID: [id number] Report ID: [id number]
[2018-12-07] MEDS: CLINDAMYCIN INJ 600 MG in NA CHLORIDE 0.9% 50 ML IV SCH ×2 (00:14→05:11)
[2018-12-07] MEDS: VANCOMYCIN 1.75 GM in NA CHLORIDE 0.9% 500 ML IVPB SCH (00:15)
[2018-12-07] MEDS: HYDROCODONE/APAP 7.5/325 MG TAB PO PRN ×4 (04:01→22:50)
[2018-12-07 04:43] LABS: Absolute Lymphocytes (CBC) 1.8 K/uL (0.7-4.9); Basophils % 1.1 % (0-1.3); Hematocrit 33.7 % (39.6-49.0); Lymphocytes % 24.3 % (15.3-44.8); MPV 7.9 fL (7.6-11.3); RBC Red Blood Cell Count 3.74 M/uL (4.33-5.43)
[2018-12-07 04:55] LABS: ALT/SGPT 24 U/L (12-78); AST/SGOT 17 U/L (15-37); Albumin 2.7 g/dL (3.4-5.0); Alkaline Phosphatase 130 U/L (45-117); BUN Blood Urea Nitrogen 19 mg/dL (7-18); Bicarbonate 30 mmol/L (21-32); Bilirubin Total 0.2 mg/dL (0.2-1.0); Glucose Level 100 mg/dL (74-106); Potassium 4.5 mmol/L (3.5-5.1); Protein, Total 6.3 g/dL (6.4-8.2); Sodium Level 139 mmol/L (136-145)
[2018-12-07] MEDS: GABAPENTIN 300 MG CAP PO SCH ×2 (08:49→21:41)
[2018-12-07] MEDS: LISINOPRIL 10 MG TAB PO SCH (08:50)
[2018-12-07] MEDS: CARVEDILOL 12.5 MG TAB PO SCH ×2 (08:50→21:41)
[2018-12-07] MEDS: FOLIC ACID 1 MG TABLET PO SCH (08:51)
[2018-12-07] MEDS: Levofloxacin500mg IV 500 MG/100 ML BAG IV SCH (12:40)
[2018-12-07] MEDS ORDERED: KETOROLAC 30 MG/ML INJ IV ONE (15:42)
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
[2018-12-07] MEDS ORDERED: ENOXAPARIN 40 MG/0.4 ML SQ SCH (17:00)
[2018-12-07] MEDS: COLLAGENASE 30 GM OINTMENT TOP SCH (17:28)
[2018-12-08] MEDS: TRAMADOL HCL 50 MG TAB PO PRN (02:30)
[2018-12-08 05:41] LABS: Basophils % 0.9 % (0-1.3); Hematocrit 36.4 % (39.6-49.0); Lymphocytes % 30.1 % (15.3-44.8); MPV 8.1 fL (7.6-11.3); RBC Red Blood Cell Count 4.04 M/uL (4.33-5.43)
[2018-12-08 05:47] LABS: BUN Blood Urea Nitrogen 18 mg/dL (7-18); Bicarbonate 30 mmol/L (21-32); Glucose Level 86 mg/dL (74-106); Potassium 4.2 mmol/L (3.5-5.1); Sodium Level 138 mmol/L (136-145)
[2018-12-08] MEDS: HYDROCODONE/APAP 7.5/325 MG TAB PO PRN ×2 (07:38→11:08)
[2018-12-08] MEDS ORDERED: ACETIC ACID 0.25% IRRIG IRR ONE (08:30)
[2018-12-08 09:35] VITALS: O2SAT 94
[2018-12-08] MEDS: LISINOPRIL 10 MG TAB PO SCH (10:36)
[2018-12-08] MEDS: FOLIC ACID 1 MG TABLET PO SCH (10:36)
[2018-12-08] MEDS: GABAPENTIN 300 MG CAP PO SCH (10:36)
[2018-12-08] MEDS: CARVEDILOL 12.5 MG TAB PO SCH (10:37)
[2018-12-08] MEDS: COLLAGENASE 30 GM OINTMENT TOP SCH (10:38)
[2018-12-08] MEDS: Levofloxacin500mg IV 500 MG/100 ML BAG IV SCH (10:38)
--- NOTE | 2018-12-08 11:50 | PN ---
Date of Progress Note: 12/08/2018 Subjective: Patient is awake, alert. No new complaints. Objective: Vital Signs: Stable. Afebrile. OR cultures are growing out Pseudomonas as well. Dressing is clean, dry and intact. Wound: A soft picture of the wound has minimal fibrin around the edges. No surrounding erythema or warmth. No pur ulent discharge. Good granulation tissue in the center of the wound. Assessment: Status post I and D and debridement of left leg, infected wound. Recommendations: Continue antibiotics. Wound care is ordered. Discharge planning in progress. /MODL Voice ID: [id number] Report ID: [id number]
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
[2018-12-14 16:40] VITALS: BP 140/81; TEMP 98.2
== END 2018-12-08 14:38 | disposition left against medical advice (07) | DRG 571 ==
LOC: ER 09:25 → ERHOLD 12:06 → 4TH 14:42
PROVIDERS: ADMIT Family Medicine; ATTEND Family Medicine
PROC: 0JBP0ZZ Excision of Left Lower Leg Subcutaneous Tissue and Fascia, Open Approach (ICD-10-PCS; principal; 2018-12-06 10:00)
DX: L03.116 Cellulitis of left lower limb (principal); L97.929 Non-pressure chronic ulcer of unspecified part of left lower leg with unspecified severity; B96.5 Pseudomonas (aeruginosa) (mallei) (pseudomallei) as the cause of diseases classified elsewhere; F15.10 Other stimulant abuse, uncomplicated; F17.210 Nicotine dependence, cigarettes, uncomplicated; G89.4 Chronic pain syndrome; B18.2 Chronic viral hepatitis C; Z59.0 Homelessness; Z53.21 Procedure and treatment not carried out due to patient leaving prior to being seen by health care provider
CPT/HCPCS: 36415; 80048; 80053; 80202; 81001; 82565; 85025; 87040; 87070; 87077; 87176; 87186; 87205; 94760; 96365; 96367; 99285; J1170; J1650; J2250; J2270; J2405; J2704; J3010; J3590

== ENCOUNTER 2019-08-09 08:41 | Inpatient (IN) | payer OTHER ==
[2019-08-09] MEDS ORDERED: NA CHLORIDE 0.9% 2,000 ML ONE (09:08)
[2019-08-09] MEDS ORDERED: ACETAMINOPHEN 500 MG TAB ONE (09:08)
[2019-08-09] MEDS ORDERED: ONDANSETRON 4 MG/2 ML VIAL ONE (09:08)
[2019-08-09 09:27] LABS: Absolute Lymphocytes (CBC) 0.7 K/uL (0.7-4.9); Basophils % 0.3 % (0-1.3); Hematocrit 43.8 % (39.6-49.0); Lymphocytes % 3.6 % (15.3-44.8); MPV 7.7 fL (7.6-11.3); RBC Red Blood Cell Count 4.97 M/uL (4.33-5.43)
[2019-08-09 09:29] LABS: Protime INR 1.29
--- OUTSIDE RECORDS SUMMARY | 2019-08-09 09:40 | XMS REPORT | Continuity of Care Document ---
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 [id number] [facility] Assessment and Plan Assessment and Plan Date Source Extracted from:Title: Prevent Clot Study ASA 81mg BID 2018 [facility] Author: Kati Orr Date: 05/26/18 ASA ARM Patient signed consent for participation in the PREVENT Clot study on 05/26/18 and has been randomized to the [employer]. Please STOP Enoxaparin STAT. The patient will receive Aspirin (ASA) 81mg BID for DVT PPX. *Please discharge patient with the assigned DVT PPX for 21 d ays* For questions, please call: [phone] Extracted from:Title: History and Physical Author: Jenelle Witt MD Date: 05/25/18 1.Nondisplaced transverse fracture of sh aft of left fibula, subsequent encounter for open fracture type I or II with delayed healing(S82.425H) Planned for OR tomorrow by Ortho INGEST protocol will need PT OT ordered post op 2.Acute pain(R52) ordered pain and bowel regimen 3.Preop examination(Z01.818) 1) Typeof surgery, risk (low or elevated ), history of prior surgeries: INtermediate 2) Medical issues that may interfere with surgery: None 3) Significant findings on physical exam: None 4) Exercise tolerance (METS) >4 5) Imaging: EKG , CXR, echo, etc. CHECK EKG 6) Outpatient senior corporate strategy manager if patient has one: NONE 7) Last stress test or coronary angiogram date / findings: N ONE 8) Acute issues that need to be addresse d before surgery; if diabetes present a clear plan for glucose control in the silvano-operative period. NA 9) RCRI score with point breakdown: LOW RISK 10) Documentation that risks and benefit s were discussed with patient &/or family as well as anesthesia/ortho teams 11) Further workup ordered and indicatio n ( Indication for Echo if ordered): PENDING ekg 4.Left renal mass(N28.89) Incidental finding on CT discussed with patient; plan for OP work up. lovenox pending OR Plan of Care No Data Provided for This Section Social History Social History Date Source Social History TypeResponse 05/26/2018 [facility] Substance Abuse Use: Current. Type: Methamphetamines. Alcohol Never Smoking Status Current every day smoker; Type: Cigarett es; Previous treatment: None; Ready to change: No; [...]
--- OUTSIDE RECORDS SUMMARY | 2019-08-09 09:41 | XMS REPORT ---
:1965 Author Organization [facility] t Address [address] [place] [address] [place] [id number] Care Team Providers Name Role Phone Sual Cabrera Attending Clinician Saul Cabrera Admitting Clinician Problems This patient has no known problems. Allergies, Adverse Reactions, Alerts This patient has no known allergies or adverse reactions. Medications This patient has no known medications. Procedures This patient has no known procedures. Encounters Start End Encounter Admission Attending Care Care Encounter Source Date/Time Date/Time Type Type Clinicians Facility Department ID 2018-05-25 2018-05-28 Outpatient Tej Cabrera [facility] [id number] [facility] 04:52:00 00:51:00 Saul Casas Results This patient has no known results.
[2019-08-09 09:42] LABS: ALT/SGPT 46 U/L (12-78); AST/SGOT 35 U/L (15-37); Albumin 3.2 g/dL (3.4-5.0); Alkaline Phosphatase 104 U/L (45-117); Amylase 32 U/L (25-115); BUN Blood Urea Nitrogen 19 mg/dL (7-18); Bicarbonate 26 mmol/L (21-32); Bilirubin Direct 0.3 mg/dL (0-0.2); CKMB Creatine Kinase MB 4.1 ng/mL (0.3-3.6); Creatine Phosphokinase 452 U/L (39-308); Glucose Level 112 mg/dL (74-106); Lipase 37 U/L (73-393); Potassium 4.1 mmol/L (3.5-5.1); Protein, Total 8.4 g/dL (6.4-8.2); Sodium Level 129 mmol/L (136-145); Troponin (Emerg Dept Use Only) < 0.02 ng/mL (0.0-0.045)
--- NOTE | 2019-08-09 09:46 | RAD REPORT ---
EXAM DESCRIPTION: RAD - Chest Single View - 08/09/2019 9:22 am CLINICAL HISTORY: FEVER Chest pain. COMPARISON: Chest Single View dated 10/29/2018 FINDINGS: Portable technique limits examination quality. Linear opacity in the right lung base likely represents atelectasis or developing pneumonia. Mild int erstitial pulmonary edema is noted. The heart is normal in size. No displaced fractures.
[2019-08-09] MEDS ORDERED: CIPROFLOXACIN 400mg IV 400 MG/200 ML BAG IV ONE (10:09)
--- NOTE | 2019-08-09 10:18 | ER ---
Nurse's Notes [facility] Name: Joby Pena Age: 54 yrs Sex: Male : 1965 Arrival Date: 08/09/2019 Time: 08:46 Bed 7 Private MD: Diagnosis: Dehydration;Cellulitis of left lower limb Presentation: 08/08 08:47 Chief complaint: EMS states: Toned out for unresponsive/incoherent. Pt is homeless. Pt jl7 was responsive on scene, drowsy, c/o nausea, multiple blisters noted on extremities. Coronavirus screen: Proceed with normal triage. Patient denies a cough. Patient denies shortness of breath or difficulty breathing. Patient reports a measured and/or subjective temperature greater than 100.4F. Patient denies travel on a cruise ship or to a country the [facility] currently lists as an affected area. Patient denies contact with known and/or suspected case of COVID-19. Ebola Screen: No symptoms or risks identified at this time. Initial Sepsis Screen: Does the patient meet any 2 criteria? Temp <36.0*C (96.8*F)) or > 38.3*C (100.9*F). HR > 90 bpm. Yes Does the patient have a suspected source of infection? Yes: Skin breakdown/wound. Risk Assessment: Do you want to hurt yourself or someone else? Patient reports no desire to harm self or others. Onset of symptoms is unknown. Care prior to arrival: Medication(s) given: Normal saline infusion, 500 mL, IV initiated. 20 GA, in the left antecubital area, Glucose check: 97. 08:47 Method Of Arrival: EMS: [facility] 7 08:47 Acuity: GALILEA 3 jl7 Triage Assessment: 08:54 General: Appears in no apparent distress. uncomfortable, Behavior is cooperative, jl7 drowsy. Pain: Denies pain. EENT: Oral mucosa is dry. Neuro: Level of Consciousness is obeys commands, lethargic, Oriented to person, place, time, situation. Cardiovascular: Patient's skin is warm and dry. Rhythm is sinus tachycardia. Respiratory: Airway is patent Respiratory effort is even, unlabored, Respiratory pattern is regular, symmetrical, Denies cough, shortness of breath. GI: Reports nausea, Patient currently denies abdominal pain. Derm: Skin is dry, Skin is normal, Skin temperature is hot Wound noted right arm, right leg and left leg. Historical: - Allergies: 08:54 No Known Allergies; jl7 - Home Meds: 08:54 none-supposed to take unknown HTN medication [Active]; jl7 - PMHx: 08:54 Cellulitis; Hepatitis; C; Hypertension; jl7 - PSHx: 08:54 back; jl7 - Immunization history:: Adult Immunizations unknown. - Social history:: Smoking status: Patient reports the use of cigarette tobacco products, smokes one pack cigarettes per day. Patient/guardian denies using alcohol, street drugs, IV drugs. Screenin:00 Abuse screen: Denies threats or abuse. Denies injuries from another. Nutritional jl7 screening: No deficits noted. Tuberculosis screening: No symptoms or risk factors identified. Fall Risk IV access (20 points). Total Luevano Fall Scale indicates No Risk (0-24 pts). Assessment: 10:00 Reassessment: Patient appears in no apparent distress at this time. No changes from jl7 previously documented assessment. Patient and/or family updated on plan of care and expected duration. Pain level reassessed. 10:00 GI: Patient currently denies nausea. jl7 10:32 Reassessment: Spoke to Cami Vazquezgent, Pt gave verbal consent to discuss medical jl7 information with her. Cami states "I just found out he has been smoking meth.". 11:45 Reassessment: Patient appears in no apparent distress at this time. No changes from jl7 previously documented assessment. Patient and/or family updated on plan of care and expected duration. Pain level reassessed. 12:45 Reassessment: Patient appears in no apparent distress at this time. No changes from jl7 previously documented assessment. Patient and/or family updated on plan of care and expected duration. Pain level reassessed. 13:45 Reassessment: Patient appears in no apparent distress at this time. No changes from jl7 previously documented assessment. Patient and/or family updated on plan of care and expected duration. Pain level reassessed. Patient is alert, oriented x 3, equal unlabored respirations, skin warm/dry/pink. 14:45 Reassessment: Patient appears in no apparent distress at this time. No changes from jl7 previously documented assessment. Patient and/or family updated on plan of care and expected duration. Pain level reassessed. Patient is alert, oriented x 3, equal unlabored respirations, skin warm/dry/pink. Vital Signs: 08:47 BP 152 / 77; Pulse 123; Resp 17; Temp 102.9; Pulse Ox 93% ; Weight 72.57 kg; Pain 0/10; jl7 10:11 BP 130 / 75; Pulse 123; Resp 24; Temp 99.2(O); Pulse Ox 98% on 2 lpm NC; dh3 11:44 BP 130 / 84; Pulse 105; Resp 17; Pulse Ox 97% on 2 lpm NC; jl7 12:15 BP 124 / 82; Pulse 106; Resp 17; Pulse Ox 97% ; jl7 13:00 BP 123 / 89; Pulse 105; Resp 17; Pulse Ox 96% ; jl7 14:00 BP 136 / 72; Pulse 104; Resp 17; Pulse Ox 99% on 2 lpm NC; jl7 15:00 BP 133 / 76; Pulse 106; Resp 17; Temp 99.6; Pulse Ox 98% ; jl7 16:30 BP 129 / 82; Pulse 103; Resp 17 S; Pulse Ox 99% on 2 lpm NC; jl7 ED Course: 08:46 Patient arrived in ED. jl7 08:50 Elina Draper FNP-C is PHCP. kb 08:50 Gildardo Bird MD is Attending Physician. kb 08:51 Triage completed. jl7 08:51 Elina Draper FNP-C is PHCP. kb 08:51 Gildardo Bird MD is Attending Physician. kb 08:54 Arm band placed on right wrist. jl7 08:58 Radha Hurd RN is Primary Nurse. jl7 09:00 Patient has correct armband on for positive identification. Placed in gown. Bed in low jl7 position. Call light in reach. Side rails up X2. monitoring analyst on. Pulse ox on. NIBP on. Pillow given. 09:10 EKG done, by mold technician. reviewed by Elina YBARRA. at1 09:12 Missed attempt(s): 22 gauge in left hand. Bleeding controlled, band aid applied, dh3 catheter tip intact. 09:13 Initial lab(s) drawn, by il, sent to lab. [facility] 09:22 Chest Single View XRAY In Process Unspecified. EDMS 09:55 US Extremity Venous Unilateral Ltd In Process Unspecified. EDMS 10:04 Second set of blood cultures drawn by me. Inserted saline lock: 22 gauge in right dh3 forearm, using aseptic technique. Blood collected. 10:17 Francisco Trejo DO is Hospitalizing Provider. kb 11:53 COVID-19 Sent. 3 12:30 Urine collected: clean catch specimen, clear. dh3 15:00 No provider procedures requiring assistance completed. Patient admitted, IV remains in jl7 place. intact, No redness/swelling at site. Administered Medications: 09:05 Drug: Tylenol 1000 mg Route: PO; jl7 10:00 Follow up: Response: No adverse reaction; Temperature is decreased jl7 09:15 Drug: NS 0.9% (30 ml/kg) 30 ml/kg Route: IV; Rate: bolus; Site: left antecubital; jl7 11:44 Follow up: Response: No adverse reaction; IV Status: Completed infusion; IV Intake: jl7 2000ml 09:15 Drug: Zofran (Ondansetron) 4 mg Route: IVP; Site: left antecubital; jl7 09:30 Follow up: Response: No adverse reaction; Nausea is decreased jl7 10:23 Drug: Cipro 400 mg Volume: 200 ml; Route: IVPB; Infused Over: 60 mins; Site: right jl7 forearm; 11:23 Follow up: Response: No adverse reaction; IV Status: Completed infusion jl7 Intake: 11:44 IV: 2000ml; Total: 2000ml. jl7 Outcome: 10:17 Decision to Hospitalize by Provider. kb 16:38 Admitted to Tele accompanied by tech, via stretcher, room 208, with chart, Report jl7 called to LEE Ballard 16:38 Condition: stable 16:38 Discharge instructions given to patient, Instructed on the need for admit, Demonstrated understanding of instructions. 17:07 Patient left the ED. jl7 Signatures: Dispatcher [employer] EDMS Elina Draper, SUPERVISOR PAINT-C SUPERVISOR PAINT-CkMalou Casey, laborer dairy farm EKG Tat1 Radha Hurd RN RN jl7 Amy Paredes 3 Corrections: (The following items were deleted from the chart) 10:13 10:11 BP 130 / 75; Pulse 123bpm; Resp 24bpm; Pulse Ox 98% 2 lpm Nasal Cannula; dh3 dh3
--- NOTE | 2019-08-09 10:18 | EDPHYS ---
Physician Documentation [facility] Name: Joby Pena Age: 54 yrs Sex: Male : 1965 Arrival Date: 08/09/2019 Time: 08:46 Bed 7 Private MD: ED Physician Gildardo Bird HPI: 08/08 09:17 This 54 yrs old Male presents to ER via EMS with complaints of Nausea. kb 09:17 The patient presents to the emergency department with nausea. Onset: The kb symptoms/episode began/occurred today. Possible causes: unknown. The symptoms are aggravated by nothing. The symptoms are alleviated by nothing. Associated signs and symptoms: Pertinent positives: nausea, Pertinent negatives: abdominal pain, anorexia, belching, constipation, diarrhea, dysuria, fever, flatulence, GI bleeding, hematuria, vomiting. Severity of symptoms: At their worst the symptoms were mild in the emergency department the symptoms are unchanged. The patient has not experienced similar symptoms in the past. The patient has not recently seen a physician. Pt brought in by EMS. PD had called EMS for unresponsive patient. EMS reports pt was responsive when they arrived. Pt states "they just rolled up on me and made me come in." Reports only "upset stomach" denies pain, vomiting, or any other symptoms. . Historical: - Allergies: 08:54 No Known Allergies; jl7 - Home Meds: 08:54 none-supposed to take unknown HTN medication [Active]; jl7 - PMHx: 08:54 Cellulitis; Hepatitis; C; Hypertension; jl7 - PSHx: 08:54 back; jl7 - Immunization history:: Adult Immunizations unknown. - Social history:: Smoking status: Patient reports the use of cigarette tobacco products, smokes one pack cigarettes per day. Patient/guardian denies using alcohol, street drugs, IV drugs. ROS: 09:11 Constitutional: Negative for fever, chills, and weight loss, ENT: Negative for injury, kb pain, and discharge, Neck: Negative for injury, pain, and swelling, Cardiovascular: Negative for chest pain, palpitations, and edema, Respiratory: Negative for shortness of breath, cough, wheezing, and pleuritic chest pain, Back: Negative for injury and pain, MS/Extremity: Negative for injury and deformity, Skin: Negative for injury, rash, and discoloration, Neuro: Negative for headache, weakness, numbness, tingling, and seizure. 09:11 Constitutional: Positive for fatigue. 09:11 Abdomen/GI: Positive for nausea, Negative for abdominal pain, vomiting, diarrhea. Exam: 09:15 Constitutional: This is a well developed, well nourished patient who is awake, alert, kb and in no acute distress. Head/Face: Normocephalic, atraumatic. Chest/axilla: Normal chest wall appearance and motion. Nontender with no deformity. No lesions are appreciated. Cardiovascular: Regular rate and rhythm with a normal S1 and S2. No gallops, murmurs, or rubs. Normal PMI, no JVD. No pulse deficits. Respiratory: Lungs have equal breath sounds bilaterally, clear to auscultation and percussion. No rales, rhonchi or wheezes noted. No increased work of breathing, no retractions or nasal flaring. Abdomen/GI: Soft, non-tender, with normal bowel sounds. No distension or tympany. No guarding or rebound. No evidence of tenderness throughout. Back: No spinal tenderness. No costovertebral tenderness. Full range of motion. MS/ Extremity: Pulses equal, no cyanosis. Neurovascular intact. Full, normal range of motion. 09:15 Skin: cellulitis, that is moderate, on the left lower leg, injury, skin sores to all extermites, mostly scabbed. No drainage. 09:15 Neuro: Orientation: to person, place, time \\T\\ situation. Mentation: responsive to voice able to follow commands, sleepy, Memory: is normal. 10:20 ECG was reviewed by the Attending Physician. Vital Signs: 08:47 BP 152 / 77; Pulse 123; Resp 17; Temp 102.9; Pulse Ox 93% ; Weight 72.57 kg; Pain 0/10; jl7 10:11 BP 130 / 75; Pulse 123; Resp 24; Temp 99.2(O); Pulse Ox 98% on 2 lpm NC; dh3 11:44 BP 130 / 84; Pulse 105; Resp 17; Pulse Ox 97% on 2 lpm NC; jl7 12:15 BP 124 / 82; Pulse 106; Resp 17; Pulse Ox 97% ; jl7 13:00 BP 123 / 89; Pulse 105; Resp 17; Pulse Ox 96% ; jl7 14:00 BP 136 / 72; Pulse 104; Resp 17; Pulse Ox 99% on 2 lpm NC; jl7 15:00 BP 133 / 76; Pulse 106; Resp 17; Temp 99.6; Pulse Ox 98% ; jl7 16:30 BP 129 / 82; Pulse 103; Resp 17 S; Pulse Ox 99% on 2 lpm NC; jl7 MDM: 08:50 Patient medically screened. kb 09:09 Data reviewed: vital signs, nurses notes, old medical records, Tissue and wound culture kb from previous admission 11/2018 positive for pseudomonas aeruginosa, enterococcus faecalis, and staph aureus. All three showed sensitivity to cipro. Will start cipro now. 09:11 Data interpreted: Pulse oximetry: on room air is 93 %. Interpretation: normal. kb 10:02 Counseling: I had a detailed discussion with the patient and/or guardian regarding: the kb historical points, exam findings, and any diagnostic results supporting the discharge/admit diagnosis, lab results, radiology results, the need for further work-up and treatment in the hospital. Physician consultation: Francisco Trejo DO was called at 10:03. 08/08 08:52 Order name: Amylase, Serum 08/08 08:52 Order name: Basic Metabolic Panel 08/08 08:52 Order name: Blood Culture Adult (2) 08/08 08:52 Order name: CBC with Diff 08/08 08:52 Order name: Ckmb 08/08 08:52 Order name: CPK 08/08 08:52 Order name: Lactate 08/08 08:52 Order name: LFT's; Complete Time: 09:44 kb 08/08 08:52 Order name: Lipase; Complete Time: 09:44 kb 08/08 08:52 Order name: Procalcitonin; Complete Time: 10:00 kb 08/08 08:52 Order name: Protime (+inr); Complete Time: 09:31 kb 08/08 08:52 Order name: Ptt, Activated; Complete Time: 09:31 kb 08/08 08:52 Order name: Troponin (emerg Dept Use Only); Complete Time: 09:44 kb 08/08 08:52 Order name: Urine Microscopic Only; Complete Time: 13:01 kb 08/08 08:52 Order name: Chest Single View XRAY; Complete Time: 10:00 kb 08/08 08:53 Order name: Amylase Level; Complete Time: 09:44 EDMS 08/08 08:53 Order name: Basic Metabolic Panel; Complete Time: 09:44 EDMS 08/08 08:53 Order name: Blood Culture EDMS 08/08 08:53 Order name: CBC with Automated Diff; Complete Time: 11:57 EDMS 08/08 08:53 Order name: CKMB Creatine Kinase MB; Complete Time: 09:44 EDMS 08/08 08:53 Order name: Creatine Phosphokinase; Complete Time: 09:44 EDMS 08/08 08:53 Order name: Lactate; Complete Time: 09:41 EDMS 08/08 09:00 Order name: US Extremity Venous Unilateral Ltd; Complete Time: 10:45 kb 08/08 09:41 Order name: Glucose, Ancillary Testing; Complete Time: 09:41 EDMS 08/08 11:17 Order name: COVID-19; Complete Time: 12:19 kb 08/08 11:53 Order name: Manual Differential; Complete Time: 11:57 EDMS 08/08 12:31 Order name: Urine Dipstick--Ancillary (enter results) em1 08/08 12:34 Order name: Urine Dipstick-Ancillary; Complete Time: 12:35 EDMS 08/08 16:50 Order name: Blood Culture EDMS 08/08 08:52 Order name: Accucheck; Complete Time: 09:20 kb 08/08 08:52 Order name: Cardiac monitoring; Complete Time: 09:31 kb 08/08 08:52 Order name: EKG - Nurse/Tech; Complete Time: 09:31 kb 08/08 08:52 Order name: IV Saline Lock - Large Bore; Complete Time: 10:07 kb 08/08 08:52 Order name: Labs collected and sent; Complete Time: 09:20 kb 08/08 08:52 Order name: O2 Per Protocol; Complete Time: 09:20 kb 08/08 08:52 Order name: O2 Sat Monitoring; Complete Time: 09:20 kb 08/08 08:52 Order name: Urine Dipstick-Ancillary (obtain specimen); Complete Time: 12:21 kb 08/08 10:02 Order name: Vital Signs; Complete Time: 10:11 kb EC:20 Rate is 127 beats/min. Rhythm is regular. QRS [place] is Normal. NC interval is normal at kb 130 msec. QRS interval is normal at 88 msec. QT interval is normal at 296 msec. Administered Medications: 09:05 Drug: Tylenol 1000 mg Route: PO; jl7 10:00 Follow up: Response: No adverse reaction; Temperature is decreased jl7 09:15 Drug: NS 0.9% (30 ml/kg) 30 ml/kg Route: IV; Rate: bolus; Site: left antecubital; jl7 11:44 Follow up: Response: No adverse reaction; IV Status: Completed infusion; IV Intake: jl7 2000ml 09:15 Drug: Zofran (Ondansetron) 4 mg Route: IVP; Site: left antecubital; jl7 09:30 Follow up: Response: No adverse reaction; Nausea is decreased jl7 10:23 Drug: Cipro 400 mg Volume: 200 ml; Route: IVPB; Infused Over: 60 mins; Site: right jl7 forearm; 11:23 Follow up: Response: No adverse reaction; IV Status: Completed infusion jl7 Disposition: 08/09 09:12 Co-signature as Attending Physician, Gildardo Bird MD I agree with the assessment and [facility] plan of care. Disposition: 08/09/19 10:17 Hospitalization ordered by Francisco Trejo for Inpatient Admission. Preliminary diagnosis are Dehydration, Cellulitis of left lower limb. - Bed requested for Telemetry/MedSurg (Inpatient). - Status is Inpatient Admission. jl7 - Condition is Stable. - Problem is new. - Symptoms are unchanged. Signatures: Dispatcher [employer] EDPA Elina Draper, MANAGER INSIDE-C MANAGER INSIDE-Ckb Gildardo Bird MD MD [facility] Jessica em1 Radha Hurd RN RN jl7 Corrections: (The following items were deleted from the chart) 08/08 16: 10:17 Hospitalization Ordered by Francisco Trejo DO for Inpatient Admission. Preliminary em1 diagnosis is Dehydration; Cellulitis of left lower limb. Bed requested for Telemetry/MedSurg (Inpatient). Status is Inpatient Admission. Condition is Stable. Problem is new. Symptoms are unchanged. kb 17:07 16:21 08/09/2019 10:17 Hospitalization Ordered by Francisco Trejo DO for Inpatient jl7 Admission. Preliminary diagnosis is Dehydration; Cellulitis of left lower limb. Bed requested for Telemetry/MedSurg (Inpatient). Status is Inpatient Admission. Condition is Stable. Problem is new. Symptoms are unchanged. em1
--- NOTE | 2019-08-09 10:46 | RAD REPORT ---
EXAM DESCRIPTION: US - Extremity Venous Uni Ltd - 08/09/2019 9:55 am CLINICAL HISTORY: SWELLING Leg swelling and edema. COMPARISON: Extremity Venous Uni Ltd dated 10/28/2018 FINDINGS: Left lower extremity venous system was interrogated with Doppler technique. Normal flow, c ompressibility and augmentation was noted. There is no DVT present. IMPRESSION: No evidence of left lower extremity deep venous thrombosis.
--- NOTE | 2019-08-09 11:32 | P.HP ---
Certification for Inpatient Patient admitted to: Inpatient With expected LOS: >2 Midnights Patient will require the following post-hospital care: None Practitioner: I am a practitioner with admitting privileges, knowledge of patient current condition, hospital course, and medical plan of care. Services: Services provided to patient in accordance with Admission requirements found in Title 42 Section 412.3 of the Code of Federal Regulations Patient History Date of Service: 08/09/19 Primary Care Provider: None Reason for admission: Left lower extremity cellulitis History of Present Illness: 54-year-old male presented to the emergency room after he was brought in by police. Patient was having increased fatigue. He also heads swelling to the left lower extremity with erythema. Patient with prior history of cellulitis. Patient is a poor historian. Patient denied any cough, congestion or shortness of breath. He denied any chest pain, nausea or vomiting. Patient is homeless but lives after this car. Patient admits tobacco and alcohol use. He denies any other drugs. In the ER patient was evaluated. Left lower extremity cellulitis noted. Venous Doppler unremarkable. Chest x-ray showed possible early atelectasis to the right lower base versus pneumonia. White count 20.3. Procalcitonin slightly elevated at 0.78. Lactic acid negative. CPK 452. Troponin negative. Sodium 129, potassium 4.2, BUN of 19, creatinine 1.21 with a GFR 62. Glucose 112. Patient was given antibiotic therapy in the emergency room. Patient was admitted for further evaluation. When I saw the patient ER, he did not appear in respiratory distress. Patient appeared disheveled and not well kept. Patient did not appear septic. Allergies No Known Allergies Allergy (Verified 10/28/18 02:28) Home medications list reviewed: Yes Home Medications: Folic Acid 1 mg PO DAILY #90 tablet 11/03/18 Furosemide [Lasix*] 20 mg PO DAILY PRN #30 tab 11/03/18 Gabapentin 300 mg PO BID #60 capsule 11/03/18 carvediloL [Coreg*] 12.5 mg PO BID #60 tab 11/03/18 lisinopriL [Prinivil*] 10 mg PO DAILY #30 tab 11/03/18 Collagenase [Santyl Ointment*] 1 appl TOP DAILY #1 tube 12/08/18 levoFLOXacin [Levaquin] 500 mg PO DAILY #10 tab 12/08/18 traMADol HCL [Ultram*] 50 mg PO TID PRN #9 tab 12/08/18 - Past Medical/Surgical History Diabetic: No -: Chronic pain -: Amphetamine abuse -: Tobacco abuse -: Hepatitis-C -: Suspect COPD -: Homeless -: Neck surgery c3-c5 fusion Psychosocial/ Personal History: Patient is homeless. He travels on a bicycle. He lives out of his car - Family History Mother -: Heart disease, Cancer - Social History Smoking Status: Heavy Tobacco smoker (>10 cigarettes/day) Counseled patient to stop smoking for: less than 10 minutes Smoking therapy provided: Yes Patient receptive to therapy: Yes Alcohol use: Yes CD- Drugs: Yes Caffeine use: Yes Place of Residence: Homeless Review of Systems General: Weakness, As per HPI Eyes: Unremarkable ENT: Unremarkable Respiratory: Unremarkable Cardiovascular: Unremarkable Gastrointestinal: Unremarkable Genitourinary: Unremarkable Musculoskeletal: Pedal edema, As per HPI Integumentary: As per HPI Neurological: Unremarkable Lymphatics: Unremarkable Physical Examination - Physical Exam General: Alert, In no apparent distress, Oriented x3, Cooperative, Disheveled HEENT: Atraumatic, Normocephalic, Other (Dry mucous membranes) Neck: Supple Respiratory: Clear to auscultation bilaterally, Normal air movement Cardiovascular: Normal pulses, Regular rate/rhythm Gastrointestinal: Normal bowel sounds, Soft and benign, Non-distended, No tenderness, No masses, No rebound, No guarding Musculoskeletal: No contractures Integumentary: Tenderness/swelling (Erythema to the left lower extremity. Swelling noted to the left lower extremity more so than the right.) Neurological: Normal speech, Normal strength at 5/5 x4 extr, Normal tone, Normal affect, Other (Patient is not will kept.) - Studies Laboratory Data (last 24 hrs) 08/09/19 09:13: PT 15.1 H, INR 1.29, APTT 30.9 08/09/19 09:13: WBC 20.4 H*, Hgb 15.1, Hct 43.8, Plt Count 265 08/09/19 09:13: Sodium 129 L, Potassium 4.1, BUN 19 H, Creatinine 1.21, Glucose 112 H, Total Bilirubin 1.0, AST 35, ALT 46, Alkaline Phosphatase 104, Amylase 32, Lipase 37 L Assessment and Plan - Plan Impression: Left lower extremity cellulitis Acute rhabdomyolysis likely from dehydration/hyponatremia Possible early right lower lobe pneumonia versus atelectasis History of tobacco use Suspect underlying COPD History of alcohol, amphetamine use Patient is homeless Plan: Left lower extremity cellulitis: Patient will be admitted for further evaluation and treatment. Will start Levaquin and vancomycin. Will obtain blood, urine cultures. Venous Doppler negative. Will provide DVT prophylaxis- Lovenox. Due to his risk factors the patient will need to be evaluated for COVID. Will start IV fluids. Will monitor electrolytes. Electrolyte protocol in place. Pharmacy to monitor and adjust medication. Will continue follow closely. Acute rhabdomyolysis likely from dehydration/hyponatremia: Continue IV fluids. Will monitor CPK. Electrolyte protocol in place. Possible early right lower lobe pneumonia versus atelectasis: Will start Levaquin. Will recheck chest x-ray tomorrow. Will provide consent spirometer. Maintain oxygen above 93%. Will obtain influenza, strep test. Also COVID testing. History of tobacco use: Cessation address. Will provide nicotine patch. Suspect underlying COPD: Will start medication. Maintain sats above 93%. History of alcohol, amphetamine use: Will check urine drug screen. Patient is homeless: Will consider social work console to further evaluate. Discharge Plan: Home Plan to discharge in: 72 Hours - Advance Directives Does patient have a Living Will: No Does patient have a Durable POA for Healthcare: No - Code Status/Comfort Care Code Status Assessed: Yes (Patient is full code) Time Spent Managing Pts Care (In Minutes): 55
[2019-08-09 11:51] LABS: Blood Morphology Comment NOT SEEN (NOT SEEN); Platelet Estimate ADEQ
[2019-08-09 12:33] LABS: Urine Blood NEGATIVE (NEG); Urine Glucose TRACE (NEG); Urine Protein NEGATIVE (NEG); Urine Specific Gravity 1.015 (1.005-1.030)
[2019-08-09 12:57] LABS: Urine Bacteria <20 /HPF (NONE SEEN); Urine Culture Reflex Order NOT NEEDED; Urine RBC <5 /HPF (NONE SEEN)
[2019-08-09] MEDS ORDERED: ONDANSETRON 4 MG/2 ML VIAL IV PRN (16:41)
[2019-08-09] MEDS ORDERED: ALBUTEROL INHALER 60 PUFF/8 GM IH PRN (16:41)
[2019-08-09] MEDS ORDERED: HYDROCODONE/APAP 7.5/325 MG TAB PO PRN (16:41)
[2019-08-09] MEDS: ACETAMINOPHEN 500 MG TAB PO PRN (17:20)
[2019-08-09] MEDS: ENOXAPARIN 40 MG/0.4 ML SQ SCH (17:21)
[2019-08-09] MEDS: NICOTINE 21 MG/PAT TD SCH (17:21)
[2019-08-09] MEDS: NA CHLORIDE 0.9% 1,000 ML IV SCH (17:21)
[2019-08-09] MEDS: Levofloxacin500mg IV 500 MG/100 ML BAG IV SCH (17:37)
[2019-08-09 17:59] VITALS: BMI 24.3
[2019-08-09] MEDS ORDERED: VANCOMYCIN 2 GM in NA CHLORIDE 0.9% 500 ML IVPB ONE (18:00)
[2019-08-09 18:29] LABS: Urine Appearance CLEAR; Urine Bilirubin NEGATIVE (NEG); Urine Blood NEGATIVE (NEG); Urine Color YELLOW; Urine Glucose NEGATIVE (NEG); Urine Protein NEGATIVE (NEG); Urine Specific Gravity 1.015 (1.005-1.030); Urine pH 6.5 (5.0-7.0)
[2019-08-09 18:34] LABS: Urine Microscopic Reflex NO UMIC
[2019-08-09] MEDS: DULERA 100/5 (MOMETASONE/FORMOTEROL) INHALER IH SCH (21:01)
[2019-08-10] MEDS: NA CHLORIDE 0.9% 1,000 ML IV SCH ×5 (02:41→20:27)
[2019-08-10 05:08] LABS: Absolute Lymphocytes (CBC) 0.7 K/uL (0.7-4.9); Basophils % 0.5 % (0-1.3); Hematocrit 38.7 % (39.6-49.0); Lymphocytes % 3.9 % (15.3-44.8); MPV 8.2 fL (7.6-11.3); RBC Red Blood Cell Count 4.39 M/uL (4.33-5.43)
[2019-08-10 05:35] LABS: ALT/SGPT 30 U/L (12-78); AST/SGOT 27 U/L (15-37); Albumin 2.5 g/dL (3.4-5.0); Alkaline Phosphatase 76 U/L (45-117); BUN Blood Urea Nitrogen 13 mg/dL (7-18); Bicarbonate 24 mmol/L (21-32); Bilirubin Total 0.8 mg/dL (0.2-1.0); Creatine Phosphokinase 374 U/L (39-308); Glucose Level 114 mg/dL (74-106); Magnesium 1.7 mg/dL (1.8-2.4); Protein, Total 6.6 g/dL (6.4-8.2); Sodium Level 131 mmol/L (136-145)
[2019-08-10] MEDS: ACETAMINOPHEN 500 MG TAB PO PRN ×2 (06:34→18:50)
[2019-08-10] MEDS ORDERED: MAGNESIUM SULFATE 1 gm IVPB 1 GM/100 ML BAG IV ONE (07:15)
[2019-08-10] MEDS: ENOXAPARIN 40 MG/0.4 ML SQ SCH (08:07)
[2019-08-10] MEDS: DULERA 100/5 (MOMETASONE/FORMOTEROL) INHALER IH SCH ×2 (08:08→20:27)
[2019-08-10] MEDS: NICOTINE 21 MG/PAT TD SCH (08:08)
[2019-08-10] MEDS: TRAMADOL HCL 50 MG TAB PO PRN ×2 (08:08→20:27)
[2019-08-10] MEDS: PANTOPRAZOLE 40MG TABLET PO SCH (08:08)
--- NOTE | 2019-08-10 09:49 | P.PN ---
Subjective Date of Service: 08/10/19 Primary Care Provider: None Chief Complaint: Left lower extremity cellulitis Subjective: Other (Patient with mild headache. Slightly improved since yesterday.) Physical Examination - Vital Signs Temperature: 98.3 F Blood Pressure: 118/71 Pulse: 107 Respirations: 18 Pulse Ox (%): 97 - Physical Exam General: Alert, In no apparent distress, Oriented x3, Cooperative, Disheveled HEENT: Atraumatic Neck: Supple Respiratory: Clear to auscultation bilaterally, Normal air movement Cardiovascular: Normal pulses, Regular rate/rhythm Gastrointestinal: Normal bowel sounds, Soft and benign, Non-distended, No masses, No rebound, No guarding Musculoskeletal: Other (Left lower extremity swelling, erythema noted.) Neurological: Normal speech, Normal strength at 5/5 x4 extr, Normal tone, Normal affect - Studies Laboratory Data (last 24 hrs) 08/09/19 09:13: WBC 20.4 H*, Hgb 15.1, Hct 43.8, Plt Count 265 Microbiology Data (last 24 hrs): 08/09/19 09:06 Blood - Blood Anaerobic Blood Culture - Final Medications List Reviewed: Yes Assessment & Plan Discharge Plan: Home Plan to discharge in: 72 Hours Physician Review Additional Text: Impression: Left lower extremity cellulitis Acute rhabdomyolysis likely from dehydration/hyponatremia/acute renal injury Possible early right lower lobe pneumonia versus atelectasis History of tobacco use Suspect underlying COPD History of alcohol, amphetamine use Patient is homeless Plan: Left lower extremity cellulitis: Continue with IV antibiotic therapy-Levaquin and vancomycin. Await blood and urine cultures. Will elevate leg when sitting or lying. Will order x-ray of the left foot to rule out foreign body. Continue DVT prophylaxis. Will also increase IV fluids. Will provide incentive spirometer. Will continue with pain control medication. Anticipate improvement over the next 48-72 hr. Acute rhabdomyolysis likely from dehydration/hyponatremia/acute renal injury: Will increase IV fluids. Continue to monitor CPK. Electrolyte protocol in place. Possible early right lower lobe pneumonia versus atelectasis: Continue with antibiotic therapy. Will recheck chest x-ray did. Will provide incentive spirometer. Maintain oxygen above 93%. COVID testing negative. History of tobacco use: Cessation addressed. Continue with nicotine patch. Suspect underlying COPD: Continue with medication. Maintain sats above 93%. History of alcohol, amphetamine use: Will check urine drug screen. Pending at this time. Patient is homeless: Will discuss with social science manager about discharge planning. Time Spent Managing Pts Care (In Minutes): 55
--- NOTE | 2019-08-10 10:41 | RAD REPORT ---
EXAM DESCRIPTION: RAD - Chest Pa And Lat (2 Views) - 08/10/2019 10:25 am CLINICAL HISTORY: follow up possible pneumonia, shortness of breath COMPARISON: August 08 portable TECHNIQUE: Frontal and lateral views of the chest were obtained. FINDINGS: The lungs are slightly underinflated. Stranding along the diaphragm right base has a mukund kathy more typical for atelectasis than infiltrate. No new mass or consolidation. Interstitial pattern is stable. Heart size is normal and central vasculature is within normal limits. No pleural effusion or pneumothorax seen. No acute bony finding noted. No aortic abnormality. IMPRESSION: Right base atelectasis or possible scarring. Findings are similar to August 08. No new or enlarging mass or infiltrate.
--- NOTE | 2019-08-10 11:05 | RAD REPORT ---
EXAM DESCRIPTION: RAD - Foot Left 2 View - 08/10/2019 10:26 am CLINICAL HISTORY: Cellulitis, rule out foreign body COMPARISON: No comparisons FINDINGS: No fracture, dislocation or periosteal reaction. No acute or destructive bony process. Minimal spurring at the Achilles attachment. Degenerative change seen along the dorsal margin of the anterior talus. Left foot edema is present around the ankle joint and dorsum of the foot primarily. No air or foreign body in the soft tissues. IMPRESSION: Soft tissue swelling without air or foreign body left foot.
[2019-08-10 11:24] LABS: Barbiturates NEGATIVE (NEGATIVE); Benzodiazepines NEGATIVE (NEGATIVE); Cocaine NEGATIVE (NEGATIVE); METHAMPHETAM POSITIVE (NEGATIVE); Methadone NEGATIVE (NEGATIVE); Opiates NEGATIVE (NEGATIVE); Phencyclidine NEGATIVE (NEGATIVE); THC Cannibis NEGATIVE (NEGATIVE)
[2019-08-10] MEDS ORDERED: VANCOMYCIN 1.25 GM in NA CHLORIDE 0.9% 250 ML IVPB SCH (12:00)
[2019-08-10] MEDS: Levofloxacin500mg IV 500 MG/100 ML BAG IV SCH (17:36)
[2019-08-10] MEDS: VANCOMYCIN 1.25 GM in NA CHLORIDE 0.9% 250 ML IVPB SCH (23:46)
[2019-08-11] MEDS: NA CHLORIDE 0.9% 1,000 ML IV SCH ×4 (00:47→21:54)
[2019-08-11 06:16] LABS: Absolute Lymphocytes (CBC) 1.1 K/uL (0.7-4.9); Basophils % 0.4 % (0-1.3); Hematocrit 34.3 % (39.6-49.0); Lymphocytes % 7.9 % (15.3-44.8); MPV 8.9 fL (7.6-11.3); RBC Red Blood Cell Count 3.92 M/uL (4.33-5.43)
[2019-08-11 06:18] LABS: ALT/SGPT 25 U/L (12-78); AST/SGOT 23 U/L (15-37); Albumin 2.1 g/dL (3.4-5.0); Alkaline Phosphatase 78 U/L (45-117); BUN Blood Urea Nitrogen 12 mg/dL (7-18); Bicarbonate 23 mmol/L (21-32); Bilirubin Total 0.3 mg/dL (0.2-1.0); Creatine Phosphokinase 197 U/L (39-308); Glucose Level 92 mg/dL (74-106); Magnesium 1.9 mg/dL (1.8-2.4); Potassium 3.9 mmol/L (3.5-5.1); Protein, Total 6.5 g/dL (6.4-8.2); Sodium Level 134 mmol/L (136-145)
--- NOTE | 2019-08-11 06:26 | EKG ---
Test Date: 2019-08-09 Test Time: 09:00:45 Ventilating Engineer: YARITZA MEASUREMENT RESULTS: Intervals: Rate: 127 OK: 130 QRSD: 88 QT: 296 QTc: 430 [place]: P: 49 OK: 130 QRS: -8 T: 41 INTERPRETIVE STATEMENTS: Sinus tachycardia Possible Left atrial enlargement Borderline ECG No previous ECG available for comparison Electronically Signed On 08-11-19 06:24:19 CDT by Crow Khan
[2019-08-11] MEDS ORDERED: POTASSIUM CL SA 10 MEQ TAB PO ONE (09:00)
[2019-08-11 09:13] LABS: Blood Morphology Comment NOT SEEN (NOT SEEN); Platelet Estimate ADEQ; Urine White Blood Cell Casts OK
[2019-08-11] MEDS: ENOXAPARIN 40 MG/0.4 ML SQ SCH (10:10)
[2019-08-11] MEDS: PANTOPRAZOLE 40MG TABLET PO SCH (10:11)
[2019-08-11] MEDS: NICOTINE 21 MG/PAT TD SCH (10:11)
[2019-08-11] MEDS: DULERA 100/5 (MOMETASONE/FORMOTEROL) INHALER IH SCH ×2 (10:12→21:55)
[2019-08-11] MEDS: HYDROCODONE/APAP 10/325 TAB PO PRN ×2 (10:17→17:57)
--- NOTE | 2019-08-11 12:27 | RAD REPORT ---
EXAM DESCRIPTION: MRI - Foot Left Wo Cont - 08/11/2019 12:07 pm CLINICAL HISTORY: Foot pain and swelling COMPARISON: August 09 x-ray TECHNIQUE: Axial, sagittal and coronal magnetic resonance imaging left foot FINDINGS: Diffuse edema is present along predominately the dorsal aspect of the foot. No fracture or dislocation noted No significant abnormal signal within the bones to suggest osteomyelitis. IMPRESSION: Marked cellulitis. No evidence of osteomyelitis
[2019-08-11] MEDS: VANCOMYCIN 1.25 GM in NA CHLORIDE 0.9% 250 ML IVPB SCH (13:09)
--- NOTE | 2019-08-11 17:00 | P.PN ---
Subjective Date of Service: 08/11/19 Primary Care Provider: None Chief Complaint: Left lower extremity cellulitis Subjective: Other (Continue with antibiotic therapy. Pain controlled.) Physical Examination - Vital Signs Temperature: 99.0 F Blood Pressure: 140/76 Pulse: 100 Respirations: 17 Pulse Ox (%): 99 - Physical Exam General: Alert, Cooperative HEENT: Atraumatic Neck: Supple Respiratory: Clear to auscultation bilaterally, Normal air movement Cardiovascular: Normal pulses, Regular rate/rhythm Gastrointestinal: Normal bowel sounds, No tenderness, No masses, No rebound, No guarding Integumentary: Other (Erythema to the left lower extremity slightly improved. Edema still present but improved.) - Studies Medications List Reviewed: Yes Assessment & Plan Discharge Plan: Home Plan to discharge in: 48 Hours Physician Review Additional Text: Impression: Left lower extremity cellulitis Acute rhabdomyolysis likely from dehydration/hyponatremia/acute renal injury Possible early right lower lobe pneumonia versus atelectasis History of tobacco use Suspect underlying COPD History of alcohol, amphetamine use Patient is homeless Plan: Left lower extremity cellulitis: Continue with IV antibiotic therapy-Levaquin and vancomycin. Blood cultures remain negative. Recommend to elevate leg when sitting or lying. MRI done today shows no osteomyelitis. Consulted surgery to evaluate and make recommendation. Await to see if intervention will be required. Continue to monitor closely. Anticipate improvement over the next 72 hr. Acute rhabdomyolysis likely from dehydration/hyponatremia/acute renal injury: Decrease IV fluids. CPK improved. Possible early right lower lobe pneumonia versus atelectasis: Continue antibiotic. Continue incentive spirometer. Suspect atelectasis History of tobacco use: Cessation addressed. Continue with nicotine patch. Suspect underlying COPD: Continue with medication. Maintain sats above 93%. History of alcohol, amphetamine use: Patient positive for amphetamines Patient is homeless: Will discuss with social worker delinquency prevention about discharge planning. Time Spent Managing Pts Care (In Minutes): 55
[2019-08-11] MEDS: ACETAMINOPHEN 500 MG TAB PO PRN (17:53)
[2019-08-11] MEDS: Levofloxacin500mg IV 500 MG/100 ML BAG IV SCH (17:53)
[2019-08-11] MEDS: SODIUM HYPOCHLORITE 0.25% 473 ML TOP SCH (21:55)
[2019-08-12] MEDS: VANCOMYCIN 1.5 GM in NA CHLORIDE 0.9% 500 ML IVPB SCH ×2 (00:16→11:27)
[2019-08-12 06:03] LABS: Basophils % 0.4 % (0-1.3); Hematocrit 34.5 % (39.6-49.0); Lymphocytes % 8.6 % (15.3-44.8); MPV 7.9 fL (7.6-11.3); RBC Red Blood Cell Count 3.95 M/uL (4.33-5.43)
[2019-08-12 06:26] LABS: ALT/SGPT 28 U/L (12-78); AST/SGOT 25 U/L (15-37); Albumin 2.2 g/dL (3.4-5.0); Alkaline Phosphatase 77 U/L (45-117); BUN Blood Urea Nitrogen 11 mg/dL (7-18); Bicarbonate 24 mmol/L (21-32); Bilirubin Total 0.3 mg/dL (0.2-1.0); Creatine Phosphokinase 106 U/L (39-308); Glucose Level 95 mg/dL (74-106); Magnesium 1.7 mg/dL (1.8-2.4); Potassium 3.9 mmol/L (3.5-5.1); Protein, Total 6.5 g/dL (6.4-8.2); Sodium Level 136 mmol/L (136-145)
[2019-08-12] MEDS ORDERED: MAGNESIUM SULFATE 1 gm IVPB 1 GM/100 ML BAG IV ONE (08:00)
[2019-08-12] MEDS ORDERED: POTASSIUM CL SA 10 MEQ TAB PO ONE (09:00)
--- NOTE | 2019-08-12 09:00 | P.PN ---
Subjective Date of Service: 08/12/19 Primary Care Provider: None Chief Complaint: Left lower extremity cellulitis Subjective: Improving (continues to have tenderness, but improving swelling) Physical Examination - Vital Signs Temperature: 98.6 F Blood Pressure: 121/65 Pulse: 71 Respirations: 16 Pulse Ox (%): 98 - Physical Exam General: Alert, In no apparent distress Integumentary: Other (continues to have swelling and cellulitis to LLE, no drainable collections.) - Studies Medications List Reviewed: Yes Assessment And Plan - Current Problems (Diagnosis) (1) Cellulitis of lower limb Onset Date: 10/2018 Current Visit: No Status: Acute Plan: - continue wraps and elevation - dakins damp to dry, cool packs - continue antibiotics - serial exams - if collection develops will consider surgical intervention - continue medical management Qualifiers: Laterality: left Qualified Code(s): L03.116 - Cellulitis of left lower limb Physician Review Additional Text: Impression: Left lower extremity cellulitis Acute rhabdomyolysis likely from dehydration/hyponatremia/acute renal injury Possible early right lower lobe pneumonia versus atelectasis History of tobacco use Suspect underlying COPD History of alcohol, amphetamine use Patient is homeless Plan: Left lower extremity cellulitis: Continue with IV antibiotic therapy-Levaquin and vancomycin. Blood cultures remain negative. Recommend to elevate leg when sitting or lying. MRI done today shows no osteomyelitis. Consulted surgery to evaluate and make recommendation. Await to see if intervention will be required. Continue to monitor closely. Anticipate improvement over the next 72 hr. Acute rhabdomyolysis likely from dehydration/hyponatremia/acute renal injury: Decrease IV fluids. CPK improved. Possible early right lower lobe pneumonia versus atelectasis: Continue antibiotic. Continue incentive spirometer. Suspect atelectasis History of tobacco use: Cessation addressed. Continue with nicotine patch. Suspect underlying COPD: Continue with medication. Maintain sats above 93%. History of alcohol, amphetamine use: Patient positive for amphetamines Patient is homeless: Will discuss with high school social studies tutor about discharge planning.
--- NOTE | 2019-08-12 09:28 | CON ---
Date of Consultation: 08/11/2019 Brief History Of Present Illness: Patient is a 54-year-old male presents to the emergency room after being brought into the hospital by police with increased fatigue and swelling to his left lower extremity with red changes. He states this has been going on for multiple years. He is a very poor historian and has poor insight to his past medical history, so information is obtained from the chart and from patient evaluation, but he states that he has had redness of his leg multiple times f or multiple years. He has had incision and drainage on this leg and he has had chronic wounds in [facility] area. He lives in his car and as such, has really no healthcare whatsoever by his description. He admits to heavy tobacco and alcohol use but cannot be specific. He denies any other recreational dr ug use. 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 He is homeless. Past Surgical History: Includes neck surgery, multiple surgeries of incision and debridement type of the left lower extremity. Social History: He is homeless. He travels on a bicycle. He lives out of his car. Allergies: NO KNOWN DRUG ALLERGIES. Home Medications: Include folic acid, Lasix, gabapentin, Coreg, Prinivil, Santyl, Levaquin, tramadol . Review of Systems: Ten-point review of systems other than HPI, denies. Physical Examination: General: At the time of my examination, he appears generally disheveled and unkept. HEENT: He has exophthalmos with a staring gaze. Neck: Supple. No JVD. Chest: Normal expansion excursion. Cardiovascular: Regular rate and rhythm. Pulmonary: Clear to auscultation bilaterally. Extremities: Focused examination lower extremity, he has cellulitis and swelling extending from the toes all the way to the just below the knee on the left. There are multiple well-healed scars in [facility] area. There are no drainable fluid collections. Vital signs: At time of my examination, blood pressure 129/65, pulse is 80, respiratory rate 17, tem perature 97.5. Laboratory Data: His white blood cell count of 13.6, hemoglobin was 11.8, hematocrit 34.3, platelet count 229. His neutrophils were 77%. His sodium 134, potassium 3.9, chloride 104, carbon dioxide 23 , BUN 12, creatinine 0.69, glucose was 92. Lactic acid 1.5 on admission. He had imaging performed w [facility] included a foot MRI, which was officially read as marked cellulitis. No evidence of osteomyelit is. He had multiple foot x-rays which corroborate that finding. He had a chest x-ray performed [facility] was officially read as right base atelectasis, possible scarring finding similar to August 08. He had extremity venous study, which was officially read as no evidence of left lower extremity DVT. Assessment And Plan: This is a 54-year-old male who comes in with signs and symptoms of cellulitis l eft lower extremity. 1.IV fluid hydration. 2.Antibiotic coverage. 3.Wrapped and elevate lower extremity with Dakin's damp to dry gauze and cool packs and serial exams . I have explained risks, benefits, alternatives of the above stated plan. The patient agrees to pr oceed as indicated. ERIKA/DAISY Voice ID: [id number] Report ID: [id number]
[2019-08-12] MEDS: HYDROCODONE/APAP 10/325 TAB PO PRN (09:43)
[2019-08-12] MEDS: PANTOPRAZOLE 40MG TABLET PO SCH (09:44)
[2019-08-12] MEDS: DULERA 100/5 (MOMETASONE/FORMOTEROL) INHALER IH SCH ×2 (09:44→20:14)
[2019-08-12] MEDS: ENOXAPARIN 40 MG/0.4 ML SQ SCH (09:44)
[2019-08-12] MEDS: NICOTINE 21 MG/PAT TD SCH (09:44)
[2019-08-12] MEDS: SODIUM HYPOCHLORITE 0.25% 473 ML TOP SCH ×2 (09:45→20:20)
[2019-08-12] MEDS: NA CHLORIDE 0.9% 1,000 ML IV SCH (10:29)
--- NOTE | 2019-08-12 13:05 | P.PN ---
Subjective Date of Service: 08/12/19 Primary Care Provider: None Chief Complaint: Left lower extremity cellulitis Subjective: Other (Still having pain and swelling in the left lower extremity Denies any shortness of breath Has subjective fever, he is still having pain in the lower extremity 07/29) Review of Systems 10-point ROS is otherwise unremarkable General: Fever, Chills Musculoskeletal: Leg Pain, Foot Pain Physical Examination - Vital Signs Temperature: 98.7 F Blood Pressure: 118/60 Pulse: 81 Respirations: 16 Pulse Ox (%): 100 - Physical Exam General: Alert, Oriented x3 HEENT: Atraumatic, Normocephalic Neck: Supple, 2+ carotid pulse no bruit Respiratory: Clear to auscultation bilaterally, Normal air movement Cardiovascular: Normal pulses, Regular rate/rhythm, Edema Capillary refill: <2 Seconds Gastrointestinal: Soft and benign, Non-distended Musculoskeletal: No clubbing, Swelling, Erythema, Tenderness, Warmth, Other (Left lower extremities with edema and erythema extending up to the upper thigh) Integumentary: Rash(es), Tenderness/swelling, Erythema, Warmth Neurological: Normal speech, Normal strength at 5/5 x4 extr Lymphatics: No axilla or inguinal lymphadenopathy Rectal: Deferred - Studies Medications List Reviewed: Yes Assessment & Plan - Problems (Diagnosis) (1) Cellulitis of lower limb Onset Date: 10/2018 Current Visit: No Status: Acute Plan: Continue IV antibiotics Appreciated help from surgery Pain control Continue application of lidocaine solution Qualifiers: Laterality: left Qualified Code(s): L03.116 - Cellulitis of left lower limb (2) Lower extremity ulceration Onset Date: 10/2018 Current Visit: No Status: Acute Qualifiers: Laterality: left Discharge Plan: Home Physician Review Additional Text: Impression: Left lower extremity cellulitis Acute rhabdomyolysis likely from dehydration/hyponatremia/acute renal injury History of tobacco use Suspect underlying COPD History of alcohol, amphetamine use Patient is homeless Plan: Left lower extremity cellulitis: Continue with IV antibiotic therapy-Levaquin and vancomycin. Blood cultures negative so far. Elevate leg when sitting or lying. MRI done today shows no osteomyelitis. Consulted surgery and appreciate recommendations. Conservative management for now Leukocytosis trending down Pain control Acute rhabdomyolysis likely from dehydration/hyponatremia/acute renal injury: IV fluids. CPK improved. Renal parameters monitored and normal Right lower lobe atelectasis: Continue incentive spirometer. History of tobacco use: Cessation addressed. Continue with nicotine patch. Suspect underlying COPD: Continue with medication. Maintain sats above 93%. History of alcohol, amphetamine use: Patient positive for amphetamines Patient is homeless: Consult social work instructor about discharge planning. Time Spent Managing Pts Care (In Minutes): 40
[2019-08-12] MEDS ORDERED: HYDRALAZINE HCL 20 MG/ML VIAL IV PRN (16:48)
[2019-08-12] MEDS ORDERED: KETOROLAC 30 MG/ML INJ IV PRN (16:49)
[2019-08-12] MEDS: Levofloxacin500mg IV 500 MG/100 ML BAG IV SCH (17:05)
[2019-08-12] MEDS: ACETAMINOPHEN 500 MG TAB PO PRN (20:13)
[2019-08-13] MEDS: VANCOMYCIN 1.5 GM in NA CHLORIDE 0.9% 500 ML IVPB SCH ×2 (00:57→12:00)
[2019-08-13] MEDS: NA CHLORIDE 0.9% 1,000 ML IV SCH ×2 (01:21→13:33)
[2019-08-13 06:01] LABS: BUN Blood Urea Nitrogen 12 mg/dL (7-18); Bicarbonate 25 mmol/L (21-32); Glucose Level 92 mg/dL (74-106); Magnesium 1.9 mg/dL (1.8-2.4); Potassium 3.8 mmol/L (3.5-5.1); Sodium Level 139 mmol/L (136-145)
[2019-08-13] MEDS ORDERED: POTASSIUM CL SA 10 MEQ TAB PO ONE (09:00)
[2019-08-13] MEDS: ENOXAPARIN 40 MG/0.4 ML SQ SCH (10:37)
[2019-08-13] MEDS: NICOTINE 21 MG/PAT TD SCH (10:37)
[2019-08-13] MEDS: PANTOPRAZOLE 40MG TABLET PO SCH (10:37)
[2019-08-13] MEDS: SODIUM HYPOCHLORITE 0.25% 473 ML TOP SCH ×2 (10:38→21:28)
[2019-08-13] MEDS: DULERA 100/5 (MOMETASONE/FORMOTEROL) INHALER IH SCH ×2 (10:38→21:30)
[2019-08-13] MEDS: VANCOMYCIN 1.75 GM in NA CHLORIDE 0.9% 500 ML IVPB SCH (13:33)
--- NOTE | 2019-08-13 15:37 | P.PN ---
Subjective Date of Service: 08/13/19 Primary Care Provider: None Chief Complaint: Left lower extremity cellulitis Subjective: Improving, Doing well, Other (Mild headache noted) Physical Examination - Vital Signs Temperature: 99.5 F Blood Pressure: 153/85 Pulse: 104 Respirations: 20 Pulse Ox (%): 97 - Physical Exam General: Alert, In no apparent distress, Oriented x3, Cooperative HEENT: Atraumatic Neck: Supple Respiratory: Clear to auscultation bilaterally, Normal air movement Cardiovascular: Normal pulses, Regular rate/rhythm Gastrointestinal: Normal bowel sounds Integumentary: Other (Erythema, swelling to the left lower extremity improved.) - Studies Medications List Reviewed: Yes Assessment & Plan Discharge Plan: Home Plan to discharge in: 48 Hours Physician Review Additional Text: Impression: Left lower extremity cellulitis Acute rhabdomyolysis likely from dehydration/hyponatremia/acute renal injury History of tobacco use Suspect underlying COPD History of alcohol, amphetamine use Patient is homeless Plan: Left lower extremity cellulitis: Continue antibiotic therapy. Case discussed with surgery. Continue to elevate when sitting or lying. Wrappings to help with edema to be continued. Continue current wound care. Anticipate improvement over the next 48 hr. Acute rhabdomyolysis likely from dehydration/hyponatremia/acute renal injury: This has resolved. Will discontinue IV fluids. Will monitor closely. History of tobacco use: Encouraged cessation. Provide nicotine patch. Suspect underlying COPD: Continue medication History of alcohol, amphetamine use: Cessation education addressed in detail. Elevated blood pressure: Will continue monitor this closely. If blood pressure continues to be elevated will start medication Patient is homeless: Will have neonatal social worker provide resources. Time Spent Managing Pts Care (In Minutes): 55
[2019-08-13] MEDS: TRAMADOL HCL 50 MG TAB PO PRN (16:52)
[2019-08-13] MEDS ORDERED: MAGNESIUM SULFATE 1 gm IVPB 1 GM/100 ML BAG IV ONE (17:00)
[2019-08-13] MEDS ORDERED: Magnesium Sulfate 2gm IVPB 2 G/50 ML BAG IV ONE (17:00)
--- NOTE | 2019-08-13 17:17 | P.PN ---
Subjective Date of Service: 08/13/19 Primary Care Provider: None Chief Complaint: Left lower extremity cellulitis Subjective: Other (Rapid response called. Patient had run of V-tach. Patient was asymptomatic at that time. Patient reports no chest pain, shortness of jacklyn ath,. He does report a headache.) Physical Examination - Vital Signs Temperature: 99.5 F Blood Pressure: 153/85 Pulse: 104 Respirations: 20 Pulse Ox (%): 95 - Physical Exam General: Alert, In no apparent distress, Oriented x3, Cooperative HEENT: Atraumatic Neck: Supple Respiratory: Clear to auscultation bilaterally, Normal air movement Cardiovascular: Normal pulses, Regular rate/rhythm Gastrointestinal: Normal bowel sounds, Soft and benign, Non-distended Neurological: Normal speech, Normal strength at 5/5 x4 extr, Normal tone, Normal affect - Studies Medications List Reviewed: Yes Assessment & Plan Discharge Plan: Home Plan to discharge in: 48 Hours Physician Review Additional Text: Impression: Episode of asymptomatic V-tach now normal sinus rhythm Elevated blood pressure suspect hypertension Hypomagnesia Left lower extremity cellulitis Acute rhabdomyolysis likely from dehydration/hyponatremia/acute renal injury History of tobacco use Suspect underlying COPD History of alcohol, amphetamine use Patient is homeless Plan: Episode of asymptomatic V-tach now normal sinus rhythm: Rapid response called. Patient was asymptomatic. No chest pain, shortness of breath noted. Repeat EKG shows normal sinus rhythm. I went to telemetry to review strip. Patient had V- tach. Case discussed with cardiology. Cardiology consulted to further assess. Magnesium was low yesterday. IV magnesium 2 g given. Will monitor closely. Blood pressure still elevated. Will start metoprolol 25 mg twice daily. Will continue to monitor the patient closely. Will order echocardiogram to further evaluate. Will discontinue Levaquin and adjust antibiotics. Elevated blood pressure suspect hypertension: Blood pressure still elevated peer will start metoprolol 25 mg twice daily. Hypomagnesia: Magnesium and given IV. Left lower extremity cellulitis: Continue antibiotic therapy. Case discussed with surgery. Continue to elevate when sitting or lying. Wrappings to help with edema to be continued. Continue current wound care. Anticipate improvement over the next 48 hr. Acute rhabdomyolysis likely from dehydration/hyponatremia/acute renal injury: This has resolved. Will discontinue IV fluids. Will monitor closely. History of tobacco use: Encouraged cessation. Provide nicotine patch. Suspect underlying COPD: Continue medication History of alcohol, amphetamine use: Cessation education addressed in detail. Patient is homeless: Will have social psychologist provide resources. Critical care: 30 min Critical Care: Yes (30 min) Time Spent Managing Pts Care (In Minutes): 30
[2019-08-13] MEDS: METOPROLOL TAR 25 MG TAB PO SCH ×2 (17:48→18:00)
[2019-08-13] MEDS: CEFEPIME/SWI 1gm 10 ML IVP SCH (18:59)
[2019-08-13] MEDS ORDERED: CEFEPIME 1 GM/VIAL IV SCH (21:00)
--- NOTE | 2019-08-13 23:53 | CON ---
Date of Consultation: 08/13/2019 Reason For Consultation: Ventricular tachycardia, left lower extremity cellulitis. History Of Present Illness: Mr. Pena is a 54-year-old white male with no previous cardiac history. He is here for left lower extremity cellulitis that is recurrent. He has a history of hepatitis C, hypertension, chronic back pain. He had an episode of ventricular tachycardia lasting about 5 to 6 seconds without any hemodynamic compromise. He denied any chest pain. He denied any vomiting, but h as had nausea. He is complaining of headache. He denied PND or orthopnea. He denied palpitations. He denied syncope. Denied any chills. Has had some fever. He is on Levaquin and vancomycin right now. Past Medical History: As stated above. Allergies: NONE. Review of Systems: Negative. Social History: Positive for alcohol and tobacco. Family History: Noncontributory. Medications: At home are none. Physical Examination: General: Mr. Pena was anxious, complaining of headache. No acute distress. No cardiac complaints . Sinus rhythm. Vital Signs: Stable. He was afebrile. HEENT: Negative. Neck: Supple with no bruit, lymphadenopathy, JVD, or thyromegaly. Chest: Clear to auscultation and percussion. Cardiac: Revealed a regular rhythm and rate. No murmurs, gallops, or rubs. Abdomen: Benign. Extremities: Revealed no clubbing, cyanosis, or edema. Diagnostic Data: His EKG showed normal sinus rhythm with left atrial enlargement. He had a venous D oppler and an echocardiogram a year ago, both of those were negative. His potassium is 3.8. Magnesi um was 1.9. Impression And Plan: 1.Ventricular tachycardia, possibly secondary to hypokalemia and hypomagnesemia. We should suppleme nt both of those. I will give him 2 g of magnesium IV piggyback tonight. Echocardiogram is pending. It may be worth doing a stress test on him as an outpatient. 2.Hepatitis C, chronic. 3.Cellulitis, on vancomycin and Levaquin. 4.Chronic back pain. 5.Gastroesophageal reflux disease on Protonix. 6.Chronic obstructive pulmonary disease on inhalers. The patient is on Lovenox. Metoprolol 25 mg b .i.d. is also on board and I agree with that. If his ventricular tachycardia reoccurs, we will have to change our plan. I will see what the echocardiogram shows first. MARELY/DAISY Voice ID: [id number] Report ID: [id number]
[2019-08-14] MEDS: VANCOMYCIN 1.75 GM in NA CHLORIDE 0.9% 500 ML IVPB SCH ×2 (00:39→14:20)
[2019-08-14] MEDS: TRAMADOL HCL 50 MG TAB PO PRN (02:01)
[2019-08-14 04:40] LABS: Absolute Lymphocytes (CBC) 1.3 K/uL (0.7-4.9); Basophils % 0.5 % (0-1.3); Hematocrit 34.6 % (39.6-49.0); Lymphocytes % 10.2 % (15.3-44.8); MPV 7.8 fL (7.6-11.3); RBC Red Blood Cell Count 3.93 M/uL (4.33-5.43)
[2019-08-14 04:59] LABS: BUN Blood Urea Nitrogen 12 mg/dL (7-18); Bicarbonate 26 mmol/L (21-32); Glucose Level 113 mg/dL (74-106); HDL Cholesterol 21 mg/dL (40-60); LDL Cholesterol, Calculated 41 (<130); Magnesium 1.9 mg/dL (1.8-2.4); Potassium 3.9 mmol/L (3.5-5.1); Sodium Level 135 mmol/L (136-145)
[2019-08-14] MEDS: METOPROLOL TAR 25 MG TAB PO SCH ×2 (05:49→17:32)
[2019-08-14] MEDS: CEFEPIME/SWI 1gm 10 ML IVP SCH ×2 (08:25→21:38)
[2019-08-14] MEDS: ENOXAPARIN 40 MG/0.4 ML SQ SCH (08:26)
[2019-08-14] MEDS: NICOTINE 21 MG/PAT TD SCH (08:26)
[2019-08-14] MEDS: ASPIRIN EC 81 MG TAB PO SCH (08:26)
[2019-08-14] MEDS: THIAMINE HCL 100 MG TABLET PO SCH (08:26)
[2019-08-14] MEDS: FOLIC ACID 1 MG TABLET PO SCH (08:27)
[2019-08-14] MEDS: PANTOPRAZOLE 40MG TABLET PO SCH (08:27)
[2019-08-14] MEDS: DULERA 100/5 (MOMETASONE/FORMOTEROL) INHALER IH SCH ×2 (08:27→21:37)
[2019-08-14] MEDS: SODIUM HYPOCHLORITE 0.25% 473 ML TOP SCH ×2 (08:28→21:38)
[2019-08-14] MEDS: HYDROCODONE/APAP 10/325 TAB PO PRN ×2 (08:31→21:40)
[2019-08-14] MEDS ORDERED: POTASSIUM CL SA 10 MEQ TAB PO ONE (09:00)
--- NOTE | 2019-08-14 13:25 | P.PN ---
Subjective Date of Service: 08/14/19 Primary Care Provider: None Chief Complaint: Left lower extremity cellulitis Subjective: No new changes, Improving, Other (Pain is controlled well Denies any chest pain or shortness of breath Fever subsided) Review of Systems 10-point ROS is otherwise unremarkable Physical Examination - Vital Signs Temperature: 98.2 F Blood Pressure: 141/77 Pulse: 77 Respirations: 20 Pulse Ox (%): 95 - Physical Exam General: Alert, In no apparent distress HEENT: Atraumatic, Normocephalic Neck: Supple, JVD not distended Respiratory: Clear to auscultation bilaterally, Normal air movement Cardiovascular: Normal pulses, Regular rate/rhythm, Normal S1 S2, Edema Capillary refill: <2 Seconds Gastrointestinal: Soft and benign, W/out hepatosplenomegaly Musculoskeletal: No clubbing, Swelling, Erythema, Tenderness, Other (Left lower extremity swelling present but better than before) Integumentary: Rash(es), Tenderness/swelling, Erythema, Warmth Neurological: Normal speech, Normal strength at 5/5 x4 extr Lymphatics: No axilla or inguinal lymphadenopathy Rectal: Deferred - Studies Laboratory Tests 08/09/19 08/09/19 08/09/19 09:06 09:13 09:13 WBC 20.4 H* RBC 4.97 Hgb 15.1 Hct 43.8 MCV 88.0 MCH 30.3 MCHC 34.5 RDW 13.7 Plt Count 265 MPV 7.7 Neutrophils % 89.6 H Lymphocytes % 3.6 L Monocytes % 6.5 Eosinophils % 0.0 Basophils % 0.3 Absolute Neutrophils 18.3 H Segmented Neutrophils 81 H Band Neutrophils 8 H Absolute Lymphocytes 0.7 Lymphocytes 7 L Monocytes 4 Absolute Monocytes 1.3 Absolute Eosinophils 0.0 Absolute Basophils 0.1 Morphology Comment Not seen PT INR APTT Sodium 129 L Potassium 4.1 Chloride 94 L Carbon Dioxide 26 BUN 19 H Creatinine 1.21 Estimated GFR 62 L Glucose 112 H POC Glucose 121 H Lactic Acid Calcium 8.7 Total Bilirubin 1.0 Direct Bilirubin 0.3 H AST 35 ALT 46 Alkaline Phosphatase 104 Creatine Kinase 452 H CK-MB (CK-2) 4.1 H Rapid Troponin I < 0.02 Serum Total Protein 8.4 H Albumin 3.2 L Globulin 5.2 H Albumin/Globulin Ratio 0.6 L Amylase 32 Lipase 37 L Procalcitonin 08/09/19 08/09/19 08/09/19 09:13 09:13 09:13 WBC RBC Hgb Hct MCV MCH MCHC RDW Plt Count MPV Neutrophils % Lymphocytes % Monocytes % Eosinophils % Basophils % Absolute Neutrophils Segmented Neutrophils Band Neutrophils Absolute Lymphocytes Lymphocytes Monocytes Absolute Monocytes Absolute Eosinophils Absolute Basophils Morphology Comment PT 15.1 H INR 1.29 APTT 30.9 Sodium Potassium Chloride Carbon Dioxide BUN Creatinine Estimated GFR Glucose POC Glucose Lactic Acid 1.9 Calcium Total Bilirubin Direct Bilirubin AST ALT Alkaline Phosphatase Creatine Kinase CK-MB (CK-2) Rapid Troponin I Serum Total Protein Albumin Globulin Albumin/Globulin Ratio Amylase Lipase Procalcitonin 0.78 H Microbiology Data (last 24 hrs): 08/09/19 10:09 Blood - Blood Aerobic Blood Culture - Final No growth in 5 days. 08/09/19 10:09 Blood - Blood Anaerobic Blood Culture - Final No growth in 5 days. 08/09/19 09:06 Blood - Blood Aerobic Blood Culture - Final No growth in 5 days. 08/09/19 09:06 Blood - Blood Anaerobic Blood Culture - Final Medications List Reviewed: Yes Assessment & Plan - Problems (Diagnosis) (1) Cellulitis of lower limb Onset Date: 10/2018 Current Visit: No Status: Acute Plan: Continue IV antibiotics Appreciated help from surgery Pain control Continue application of lidocaine solution Qualifiers: Laterality: left Qualified Code(s): L03.116 - Cellulitis of left lower limb (2) Lower extremity ulceration Onset Date: 10/2018 Current Visit: No Status: Acute Qualifiers: Laterality: left Physician Review Additional Text: Impression: Left lower extremity cellulitis Episode of asymptomatic V-tach now normal sinus rhythm Hypomagnesia Elevated blood pressure suspect hypertension Acute rhabdomyolysis likely from dehydration/hyponatremia/acute renal injury History of tobacco use Suspect underlying COPD History of alcohol, amphetamine use Patient is homeless Plan: Left lower extremity cellulitis: Continue antibiotic therapy. Appreciate help from surgery. Continue to elevate when sitting or lying. Wrappings to help with edema to be continued. Continue current wound care. Antibiotics adjusted Acute rhabdomyolysis likely from dehydration/hyponatremia/acute renal injury: This has resolved. Will discontinue IV fluids. Will monitor closely. Episode of an NSVT Episode of asymptomatic V-tach now normal sinus rhythm: Patient was asymptomatic. No chest pain, shortness of breath noted. Appreciate help from cardiology Possibly due to hypomagnesemia Replace electrolytes Elevated blood pressure On metoprolol 25 mg twice daily. Will continue to monitor the patient closely. Echocardiogram to further evaluate. Hypomagnesia: Magnesium and given IV. History of tobacco use: Encouraged cessation. Provide nicotine patch. Suspect underlying COPD: Continue medication History of alcohol, amphetamine use: Cessation education addressed in detail. Patient is homeless: Will have social media analyst provide resources. Critical care: 35 min Time Spent Managing Pts Care (In Minutes): 35
--- NOTE | 2019-08-14 13:33 | PN ---
Date of Progress Note: 08/14/2019 Patient is being seen today on 08/14/2019, for recent ventricular tachycardia episode. He is here fo r hepatitis C, hypertension, and acute left lower extremity cellulitis. He received magnesium and po tassium supplementation yesterday. Overnight, he did not have any more ventricular tachycardia. His potassium is 3.9. His magnesium is 1.9. Echocardiogram is pending for tomorrow. Continue low-dose beta blockers. Continue watching electrolytes. MARELY/KYUNGL Voice ID: [id number] Report ID: [id number]
[2019-08-15] MEDS: VANCOMYCIN 1.75 GM in NA CHLORIDE 0.9% 500 ML IVPB SCH ×2 (00:46→12:00)
[2019-08-15] MEDS: METOPROLOL TAR 25 MG TAB PO SCH ×2 (05:16→16:44)
[2019-08-15 05:40] LABS: Absolute Lymphocytes (CBC) 1.6 K/uL (0.7-4.9); Basophils % 0.6 % (0-1.3); Hematocrit 39.9 % (39.6-49.0); Lymphocytes % 11.9 % (15.3-44.8); MPV 7.6 fL (7.6-11.3); RBC Red Blood Cell Count 4.51 M/uL (4.33-5.43)
[2019-08-15 05:47] LABS: BUN Blood Urea Nitrogen 15 mg/dL (7-18); Bicarbonate 27 mmol/L (21-32); Glucose Level 85 mg/dL (74-106); Potassium 4.1 mmol/L (3.5-5.1); Sodium Level 137 mmol/L (136-145)
[2019-08-15 06:55] LABS: Blood Morphology Comment NOT SEEN (NOT SEEN); Platelet Estimate INCR
[2019-08-15] MEDS: ENOXAPARIN 40 MG/0.4 ML SQ SCH (07:44)
[2019-08-15] MEDS: NICOTINE 21 MG/PAT TD SCH (07:44)
[2019-08-15] MEDS: ASPIRIN EC 81 MG TAB PO SCH (07:45)
[2019-08-15] MEDS: PANTOPRAZOLE 40MG TABLET PO SCH (07:45)
[2019-08-15] MEDS: FOLIC ACID 1 MG TABLET PO SCH (07:45)
[2019-08-15] MEDS: THIAMINE HCL 100 MG TABLET PO SCH (07:45)
[2019-08-15] MEDS: DULERA 100/5 (MOMETASONE/FORMOTEROL) INHALER IH SCH ×2 (07:46→21:50)
[2019-08-15] MEDS: CEFEPIME/SWI 1gm 10 ML IVP SCH ×2 (07:46→21:50)
[2019-08-15] MEDS: SODIUM HYPOCHLORITE 0.25% 473 ML TOP SCH ×2 (07:48→21:51)
--- NOTE | 2019-08-15 08:39 | P.PN ---
Subjective Date of Service: 08/14/19 Primary Care Provider: None Chief Complaint: Left lower extremity cellulitis Subjective: Improving No new complaints, leg is much better Physical Examination - Vital Signs Temperature: 98.1 F Blood Pressure: 128/77 Pulse: 75 Respirations: 16 Pulse Ox (%): 95 - Physical Exam General: Alert, In no apparent distress Integumentary: Other (cellulitis almost resolved, swelling much improved, no drainable collections.) - Studies Microbiology Data (last 24 hrs): 08/09/19 10:09 Blood - Blood Aerobic Blood Culture - Final No growth in 5 days. 08/09/19 10:09 Blood - Blood Anaerobic Blood Culture - Final No growth in 5 days. 08/09/19 09:06 Blood - Blood Aerobic Blood Culture - Final No growth in 5 days. 08/09/19 09:06 Blood - Blood Anaerobic Blood Culture - Final Medications List Reviewed: Yes Assessment And Plan - Current Problems (Diagnosis) (1) Cellulitis of lower limb Onset Date: 10/2018 Current Visit: No Status: Acute Plan: - continue wraps and elevation - dakins damp to dry, cool packs - continue antibiotics - serial exams - if collection develops will consider surgical intervention - continue medical management Qualifiers: Laterality: left Qualified Code(s): L03.116 - Cellulitis of left lower limb Physician Review Additional Text: Impression: Left lower extremity cellulitis Episode of asymptomatic V-tach now normal sinus rhythm Hypomagnesia Elevated blood pressure suspect hypertension Acute rhabdomyolysis likely from dehydration/hyponatremia/acute renal injury History of tobacco use Suspect underlying COPD History of alcohol, amphetamine use Patient is homeless Plan: Left lower extremity cellulitis: Continue antibiotic therapy. Appreciate help from surgery. Continue to elevate when sitting or lying. Wrappings to help with edema to be continued. Continue current wound care. Antibiotics adjusted Acute rhabdomyolysis likely from dehydration/hyponatremia/acute renal injury: This has resolved. Will discontinue IV fluids. Will monitor closely. Episode of an NSVT Episode of asymptomatic V-tach now normal sinus rhythm: Patient was asymptomatic. No chest pain, shortness of breath noted. Appreciate help from cardiology Possibly due to hypomagnesemia Replace electrolytes Elevated blood pressure On metoprolol 25 mg twice daily. Will continue to monitor the patient closely. Echocardiogram to further evaluate. Hypomagnesia: Magnesium and given IV. History of tobacco use: Encouraged cessation. Provide nicotine patch. Suspect underlying COPD: Continue medication History of alcohol, amphetamine use: Cessation education addressed in detail. Patient is homeless: Will have psychiatric social worker provide resources. Critical care: 35 min
--- NOTE | 2019-08-15 11:37 | P.PN ---
Subjective Date of Service: 08/15/19 Primary Care Provider: None Chief Complaint: Left lower extremity cellulitis Subjective: No new changes, Improving Review of Systems 10-point ROS is otherwise unremarkable Physical Examination - Vital Signs Temperature: 98.1 F Blood Pressure: 128/77 Pulse: 75 Respirations: 16 Pulse Ox (%): 95 - Physical Exam General: Alert, In no apparent distress, Oriented x3 HEENT: Atraumatic, Normocephalic Neck: Supple Respiratory: Clear to auscultation bilaterally, Normal air movement Cardiovascular: Regular rate/rhythm, Normal S1 S2, Edema Capillary refill: <2 Seconds Gastrointestinal: Soft and benign, W/out hepatosplenomegaly Musculoskeletal: No clubbing, Erythema, Tenderness Integumentary: Tenderness/swelling, Other (Left lower extremity swelling slightly better) Neurological: Normal speech, Normal strength at 5/5 x4 extr Lymphatics: No axilla or inguinal lymphadenopathy Rectal: Deferred - Studies Laboratory Last Values WBC 20.4 K/uL (4.3-10.9) H* 08/09/19 09:13 RBC 4.97 M/uL (4.33-5.43) 08/09/19 09:13 Hgb 15.1 g/dL (13.6-17.9) 08/09/19 09:13 Hct 43.8 % (39.6-49.0) 08/09/19 09:13 MCV 88.0 fL (80-100) 08/09/19 09:13 MCH 30.3 pg (27.0-35.0) 08/09/19 09:13 MCHC 34.5 g/dL (32.0-36.0) 08/09/19 09:13 RDW 13.7 % (12.1-15.2) 08/09/19 09:13 Plt Count 265 K/uL (152-406) 08/09/19 09:13 MPV 7.7 fL (7.6-11.3) 08/09/19 09:13 Neutrophils % 89.6 % (41.7-73.7) H 08/09/19 09:13 Lymphocytes % 3.6 % (15.3-44.8) L 08/09/19 09:13 Monocytes % 6.5 % (3.3-12.3) 08/09/19 09:13 Eosinophils % 0.0 % (0-4.4) 08/09/19 09:13 Basophils % 0.3 % (0-1.3) 08/09/19 09:13 Absolute Neutrophils 18.3 K/uL (1.8-8.0) H 08/09/19 09:13 Segmented Neutrophils 81 % (40-80) H 08/09/19 09:13 Band Neutrophils 8 % (0-1) H 08/09/19 09:13 Absolute Lymphocytes 0.7 K/uL (0.7-4.9) 08/09/19 09:13 Lymphocytes 7 % (15-42) L 08/09/19 09:13 Monocytes 4 % (0-10) 08/09/19 09:13 Absolute Monocytes 1.3 K/uL (0.1-1.3) 08/09/19 09:13 Absolute Eosinophils 0.0 K/uL (0-0.5) 08/09/19 09:13 Absolute Basophils 0.1 K/uL (0-0.5) 08/09/19 09:13 Morphology Comment Not seen (NOT SEEN) 08/09/19 09:13 PT 15.1 SECONDS (9.5-12.5) H 08/09/19 09:13 INR 1.29 08/09/19 09:13 APTT 30.9 SECONDS (24.3-36.9) 08/09/19 09:13 Sodium 129 mmol/L (136-145) L 08/09/19 09:13 Potassium 4.1 mmol/L (3.5-5.1) 08/09/19 09:13 Chloride 94 mmol/L (98-107) L 08/09/19 09:13 Carbon Dioxide 26 mmol/L (21-32) 08/09/19 09:13 BUN 19 mg/dL (7-18) H 08/09/19 09:13 Creatinine 1.21 mg/dL (0.55-1.3) 08/09/19 09:13 Estimated GFR 62 mL/min (=/>90) L 08/09/19 09:13 Glucose 112 mg/dL (74-106) H 08/09/19 09:13 POC Glucose 121 mg/dl (65-120) H 08/09/19 09:06 Lactic Acid 1.9 mmol/L (0.4-2.0) 08/09/19 09:13 Calcium 8.7 mg/dL (8.5-10.1) 08/09/19 09:13 Total Bilirubin 1.0 mg/dL (0.2-1.0) 08/09/19 09:13 Direct Bilirubin 0.3 mg/dL (0-0.2) H 08/09/19 09:13 AST 35 U/L (15-37) 08/09/19 09:13 ALT 46 U/L (12-78) 08/09/19 09:13 Alkaline Phosphatase 104 U/L (45-117) 08/09/19 09:13 Creatine Kinase 452 U/L (39-308) H 08/09/19 09:13 CK-MB (CK-2) 4.1 ng/mL (0.3-3.6) H 08/09/19 09:13 Rapid Troponin I < 0.02 ng/mL (0.0-0.045) 08/09/19 09:13 Serum Total Protein 8.4 g/dL (6.4-8.2) H 08/09/19 09:13 Albumin 3.2 g/dL (3.4-5.0) L 08/09/19 09:13 Globulin 5.2 g/dL (2.3-3.5) H 08/09/19 09:13 Albumin/Globulin Ratio 0.6 (1.1-1.8) L 08/09/19 09:13 Amylase 32 U/L (25-115) 08/09/19 09:13 Lipase 37 U/L (73-393) L 08/09/19 09:13 Procalcitonin 0.78 ng/mL (<0.50) H 08/09/19 09:13 Microbiology Data (last 24 hrs): 08/09/19 10:09 Blood - Blood Aerobic Blood Culture - Final No growth in 5 days. 08/09/19 10:09 Blood - Blood Anaerobic Blood Culture - Final No growth in 5 days. 08/09/19 09:06 Blood - Blood Aerobic Blood Culture - Final No growth in 5 days. 08/09/19 09:06 Blood - Blood Anaerobic Blood Culture - Final Medications List Reviewed: Yes Assessment & Plan - Problems (Diagnosis) (1) Cellulitis of lower limb Onset Date: 10/2018 Current Visit: No Status: Acute Plan: Continue IV antibiotics Appreciated help from surgery Pain control Continue application of lidocaine solution Qualifiers: Laterality: left Qualified Code(s): L03.116 - Cellulitis of left lower limb (2) Lower extremity ulceration Onset Date: 10/2018 Current Visit: No Status: Acute Qualifiers: Laterality: left Physician Review Additional Text: Impression: Left lower extremity cellulitis Episode of asymptomatic V-tach now normal sinus rhythm Hypomagnesia Elevated blood pressure suspect hypertension Acute rhabdomyolysis likely from dehydration/hyponatremia/acute renal injury History of tobacco use Suspect underlying COPD History of alcohol, amphetamine use Patient is homeless Plan: Left lower extremity cellulitis: Continue antibiotic therapy. Appreciate help from surgery. Continue to elevate when sitting or lying. Wrappings to help with edema to be continued. Continue current wound care. Antibiotics adjusted Leukocytosis improving Acute rhabdomyolysis likely from dehydration/hyponatremia/acute renal injury: Resolved Episode of an NSVT Episode of asymptomatic V-tach No further episodes Patient was asymptomatic. No chest pain, shortness of breath noted. Appreciate help from cardiology Possibly due to hypomagnesemia Replace electrolytes Elevated blood pressure On metoprolol 25 mg twice daily. Will continue to monitor the patient closely. Hypomagnesia: Magnesium and given IV. History of tobacco use: Encouraged cessation. Provide nicotine patch. Suspect underlying COPD: Continue medication History of alcohol, amphetamine use: Cessation education addressed in detail. Patient is homeless: Discusses social services manager Possible Dc in a.m. Discuss about going to a [place] [facility] [place] Time Spent Managing Pts Care (In Minutes): 35
[2019-08-15] MEDS: HYDROCODONE/APAP 10/325 TAB PO PRN (16:44)
[2019-08-15] MEDS: TRAMADOL HCL 50 MG TAB PO PRN (21:51)
[2019-08-16] MEDS: VANCOMYCIN 1.75 GM in NA CHLORIDE 0.9% 500 ML IVPB SCH ×2 (00:10→12:27)
[2019-08-16] MEDS: METOPROLOL TAR 25 MG TAB PO SCH ×2 (06:00→18:00)
[2019-08-16 06:33] LABS: BUN Blood Urea Nitrogen 16 mg/dL (7-18); Bicarbonate 27 mmol/L (21-32); Glucose Level 87 mg/dL (74-106); Potassium 4.1 mmol/L (3.5-5.1); Sodium Level 136 mmol/L (136-145)
[2019-08-16 07:01] LABS: Absolute Lymphocytes (CBC) 1.8 K/uL (0.7-4.9); Basophils % 0.4 % (0-1.3); Hematocrit 37.7 % (39.6-49.0); Lymphocytes % 12.9 % (15.3-44.8); MPV 7.6 fL (7.6-11.3); RBC Red Blood Cell Count 4.31 M/uL (4.33-5.43)
[2019-08-16] MEDS: FOLIC ACID 1 MG TABLET PO SCH (08:44)
[2019-08-16] MEDS: ASPIRIN EC 81 MG TAB PO SCH (08:44)
[2019-08-16] MEDS: ENOXAPARIN 40 MG/0.4 ML SQ SCH (08:45)
[2019-08-16] MEDS: NICOTINE 21 MG/PAT TD SCH (08:45)
[2019-08-16] MEDS: THIAMINE HCL 100 MG TABLET PO SCH (08:45)
[2019-08-16] MEDS: PANTOPRAZOLE 40MG TABLET PO SCH (08:45)
[2019-08-16] MEDS: DULERA 100/5 (MOMETASONE/FORMOTEROL) INHALER IH SCH ×2 (08:46→20:38)
[2019-08-16] MEDS: TRAMADOL HCL 50 MG TAB PO PRN (08:55)
[2019-08-16] MEDS: CEFEPIME/SWI 1gm 10 ML IVP SCH ×2 (08:55→20:37)
--- NOTE | 2019-08-16 09:08 | ECHO ---
HEIGHT: 5 ft 8 in WEIGHT: 160 lb 0 oz DATE OF STUDY: 08/15/[address]: Francisco Trejo DO 2-DIMENSIONAL: YES M.MODE: YES DOPPLER: YES COLOR FLOW: YES TDS: PORTABLE: DEFINITY: BUBBLE STUDY: DIAGNOSIS: HYPERTENSION CARDIAC HISTORY: CATHERIZATION: SURGERY: PROSTHETIC VALVE: PACEMAKER: MEASUREMENTS (cm) DIASTOLIC (NORMALS) SYSTOLIC (NORMALS) IVSd 1.1 (0.6-1.2) LA Diam 3.1 (1.9-4.0) LVEF 66% LVIDd 3.6 (3.5-5.7) LVIDs 2.3 (2.0-3.5) %FS 36% LVPWd 1.1 (0.6-1.2) Ao Diam 3.4 (2.0-3.7) 2 DIMENSIONAL ASSESSMENT: RIGHT ATRIUM: NORMAL LEFT ATRIUM: NORMAL RIGHT VENTRICLE: NORMAL LEFT VENTRICLE: NORMAL TRICUSPID VALVE: NORMAL MITRAL VALVE: NORMAL PULMONIC VALVE: NORMAL AORTIC VALVE: NORMAL PERICARDIAL EFFUSION: NONE AORTIC ROOT: NORMAL LEFT VENTRICULAR WALL MOTION: DOPPLER/COLOR FLOW: COMMENTS: NORMAL 2-DIMENSIONAL ECHOCARDIOGRAM WITH DOPPLER. NO WAL MOTION ABNORMALITY. NO EFFUSION. TECHNOLOGIST: PHAM CORDERO
[2019-08-16] MEDS: SODIUM HYPOCHLORITE 0.25% 473 ML TOP SCH ×2 (12:27→21:08)
--- NOTE | 2019-08-16 12:46 | PN ---
Date of Progress Note: 08/16/2019 Subjective: The patient seen and examined. Chart reviewed and case discussed with RN. Medications: List reviewed. Physical Examination: Vital Signs: Temperature 97.8, heart rate 80, blood pressure 131/78, respirations 19, O2 98% on room air. General: Awake, alert, oriented x3, in some mild distress, appears older than stated age. CV: S1, S2. Regular rate and rhythm. Peripheral pulses present. Respiratory: Moving air well bilaterally. No wheezing or stridor. Gastrointestinal: Abdomen is sof t, nontender, nondistended. Positive bowel sounds. Extremities: No clubbing, cyanosis, or edema. Skin: Patient has left lower extremity cellulitis, bandaged, improving. Neurologic: Nonfocal. Normal speech, cranial nerves 2 through 12 intact grossly. Laboratory Data: Sodium 136, potassium 4.1, chloride 103, CO2 of 27, BUN 16, creatinine 0.77, glucos e 87, calcium 8.3. WBC 13.9, H and H 12.8 and 37.7, platelets 562, neutrophils 71%. Blood cultures, no growth to date. Assessment: A 54-year-old male with: 1.Left lower extremity cellulitis, improving. We will continue antibiotic therapy. Appreciate Dr. Fisher's input. Continue dressing changes. Continue to elevate leg while sitting. The patient's w sidney blood cell count slightly increased today. We will continue to monitor. 2.Acute rhabdomyolysis secondary to dehydration, hyponatremia, resolved. 3.Suspect underlying chronic obstructive pulmonary disease. Continue albuterol p.r.n. 4.Nicotine dependence with cigarette smoking, counseled. 5.History of alcohol, amphetamine abuse, counseled. 6.Deep vein thrombosis prophylaxis with Lovenox. Disposition: Patient is homeless. Will likely need to go to his friends or relatives place while he is recovering from the wound. Once clinically improved, we will discharge on oral antibiotics. Soc ial Work and Case Management involved for any resources. The patient refuses [facility] placement. SA/MODL Voice ID: [id number] Report ID: [id number]
--- NOTE | 2019-08-16 12:54 | EKG ---
Test Date: 2019-08-13 Test Time: 16:26:19 Remote [employer] Developer: FRANK MEASUREMENT RESULTS: Intervals: Rate: 86 OK: 148 QRSD: 98 QT: 364 QTc: 435 [place]: P: 52 OK: 148 QRS: 48 T: 60 INTERPRETIVE STATEMENTS: Normal sinus rhythm Normal ECG Compared to ECG 08/09/2019 09:00:45 Sinus tachycardia no longer present Electronically Signed On 08-16-19 12:50:45 CDT by Crow Khan
--- NOTE | 2019-08-17 00:14 | PN ---
Date of Progress Note: 08/15/2019 I have been seeing Mr. Pena for ventricular tachycardia, low magnesium, low potassium. He had not had any further ventricular tachycardia for 48 hours. He is on low-dose beta jessenia. Magnesium has been supplemented; although, remained at 1.9. His last potassium was 4.1. He has no cardiac compla int. Echocardiogram that was done today is perfectly normal. No wall motion abnormalities. Normal ejection fraction. No effusion. I will sign off the case of Mr. Pena. Continue to monitor his el ectrolytes. He can go home whenever his cellulitis care is over. MARELY/DAISY Voice ID: [id number] Report ID: [id number]
[2019-08-17] MEDS: VANCOMYCIN 1.75 GM in NA CHLORIDE 0.9% 500 ML IVPB SCH ×2 (00:25→13:11)
[2019-08-17] MEDS: HYDROCODONE/APAP 10/325 TAB PO PRN (00:28)
[2019-08-17 06:00] LABS: Absolute Lymphocytes (CBC) 1.9 K/uL (0.7-4.9); Hematocrit 39.9 % (39.6-49.0); Lymphocytes % 13.9 % (15.3-44.8); MPV 7.2 fL (7.6-11.3); RBC Red Blood Cell Count 4.54 M/uL (4.33-5.43)
[2019-08-17] MEDS: METOPROLOL TAR 25 MG TAB PO SCH (06:43)
[2019-08-17 06:54] LABS: Blood Morphology Comment NOT SEEN (NOT SEEN); Platelet Estimate INCR
[2019-08-17 07:24] LABS: Bicarbonate 27 mmol/L (21-32); Glucose Level 107 mg/dL (74-106); Potassium 4.2 mmol/L (3.5-5.1); Sodium Level 139 mmol/L (136-145)
[2019-08-17 07:25] LABS: BUN Blood Urea Nitrogen 15 mg/dL (7-18)
[2019-08-17] MEDS: ASPIRIN EC 81 MG TAB PO SCH (08:59)
[2019-08-17] MEDS: PANTOPRAZOLE 40MG TABLET PO SCH (08:59)
[2019-08-17] MEDS: FOLIC ACID 1 MG TABLET PO SCH (08:59)
[2019-08-17] MEDS: NICOTINE 21 MG/PAT TD SCH (08:59)
[2019-08-17] MEDS: THIAMINE HCL 100 MG TABLET PO SCH (08:59)
[2019-08-17] MEDS: ENOXAPARIN 40 MG/0.4 ML SQ SCH (09:00)
[2019-08-17] MEDS: DULERA 100/5 (MOMETASONE/FORMOTEROL) INHALER IH SCH (09:01)
[2019-08-17] MEDS: CEFEPIME/SWI 1gm 10 ML IVP SCH (09:01)
[2019-08-17 09:46] VITALS: O2SAT 93
[2019-08-17 12:58] VITALS: BP 115/72; TEMP 97.5
[2019-08-17] MEDS: SODIUM HYPOCHLORITE 0.25% 473 ML TOP SCH (13:12)
--- NOTE | 2019-08-17 14:12 | P.PN ---
Subjective Date of Service: 08/16/19 Primary Care Provider: None Chief Complaint: Left lower extremity cellulitis No new complaints, leg is much better Physical Examination - Vital Signs Temperature: 97.5 F Blood Pressure: 115/72 Pulse: 75 Respirations: 15 Pulse Ox (%): 94 - Physical Exam General: Alert, In no apparent distress, Cooperative Integumentary: No rashes, No breakdown, No significant lesion, No tenderness/swelling, No erythema, No warmth, No cyanosis - Studies Medications List Reviewed: Yes Assessment And Plan - Current Problems (Diagnosis) (1) Cellulitis of lower limb Onset Date: 10/2018 Current Visit: No Status: Acute Plan: - continue wraps and elevation - dakins damp to dry, cool packs - continue antibiotics - serial exams - if collection develops will consider surgical intervention - continue medical management Qualifiers: Laterality: left Qualified Code(s): L03.116 - Cellulitis of left lower limb Physician Review Additional Text: Impression: Left lower extremity cellulitis Episode of asymptomatic V-tach now normal sinus rhythm Hypomagnesia Elevated blood pressure suspect hypertension Acute rhabdomyolysis likely from dehydration/hyponatremia/acute renal injury History of tobacco use Suspect underlying COPD History of alcohol, amphetamine use Patient is homeless Plan: Left lower extremity cellulitis: Continue antibiotic therapy. Appreciate help from surgery. Continue to elevate when sitting or lying. Wrappings to help with edema to be continued. Continue current wound care. Antibiotics adjusted Leukocytosis improving Acute rhabdomyolysis likely from dehydration/hyponatremia/acute renal injury: Resolved Episode of an NSVT Episode of asymptomatic V-tach No further episodes Patient was asymptomatic. No chest pain, shortness of breath noted. Appreciate help from cardiology Possibly due to hypomagnesemia Replace electrolytes Elevated blood pressure On metoprolol 25 mg twice daily. Will continue to monitor the patient closely. Hypomagnesia: Magnesium and given IV. History of tobacco use: Encouraged cessation. Provide nicotine patch. Suspect underlying COPD: Continue medication History of alcohol, amphetamine use: Cessation education addressed in detail. Patient is homeless: Discusses pediatric social worker Possible Dc in a.m. Discuss about going to a long-term
--- NOTE | 2019-08-17 21:45 | DS ---
Date of Discharge: 08/17/2019 Consultants: Dr. Khan with Cardiology. Dr. Fisher with General Surgery. Admitting Diagnoses: 1.Left lower extremity cellulitis. 2.Acute rhabdomyolysis. 3.Acute dehydration. 4.Hyponatremia. 5.Early right lower lobe pneumonia versus atelectasis. 6.Nicotine dependence. 7.Underlying chronic obstructive pulmonary disease suspected. 8.History of alcohol abuse. 9.Methamphetamine abuse. 10.Homeless status. Discharge Diagnoses: 1.Left lower extremity cellulitis, improving. 2.Acute rhabdomyolysis, resolved. 3.Acute dehydration, resolved. 4.Hyponatremia, corrected. 5.Underlying chronic obstructive pulmonary disease suspected, stable. 6.Nicotine dependence cigarette smoking, counseled. 7.History of alcohol abuse, counseled. 8.Amphetamine abuse, counseled. 9.Homeless status. Hospital Course: Patient is a 54-year-old male with past medical history of chronic pain, amphetamin e abuse, heavy smoker, hepatitis C, who is homeless, lives out of his car, probably has COPD as well, comes in due to left lower extremity cellulitis. Patient has had multiple admissions to the [facility] for similar issues. Patient was started on IV antibiotics for his cellulitis. His white blood trini l count was 20,000, had elevated procalcitonin level. He was found to be in rhabdo with a CPK level of 450, troponin was negative, did have mild hyponatremia, likely due to his alcoholism. His chest x -ray showed some right lower base pneumonia. Patient did well overall. He did his MRI of the foot w as negative for osteomyelitis as was the x-ray. His cellulitis improved. He was seen by Dr. Fsiher , general surgeon. No surgical intervention was recommended. Patient is very noncompliant, does not follow wound care instructions or stops using alcohol or illicit drugs. Patient [place] [facility]. However, the patient [place] go [place] [facility]. He understands that stay ther e his chances of recovering his wound and cellulitis were significantly better at the nursing facilit y rather than and at a friend's place or in his car as he is homeless. Patient still does not wish t o go to a facility. Patient is alert, oriented x3. Understands the risks and benefits. He understa nds that worsening of his wound could lead to recurrence of cellulitis, possible need for amputation, sepsis and even and bacteremia. He voiced understanding, however, does not wish to have any p lacement done. Patient also had episode of nonsustained ventricular tachycardia. He was seen by Cardiology, started on beta-blockers. His sepsis improved. He became afebrile. His heart rate improved. His cultures showed no growth from the blood cultures. COVID testing was also negative. Influenza screen and th roat culture were also negative. Patient also had an echocardiogram which shows normal, showed EF of 66%. Doppler sonogram of the left lower extremity was negative for DVT as well. Patient was then c leared for discharge and will be sent home on oral antibiotics. Patient needs to establish care with primary care physician in 1 week. Follow up with general surgeon, Dr. Fisher in 1 week for wound c heck. Return to ER for worsening condition. Medications: As per medication reconciliation list. Diet: Regular. Activities: As tolerated. Physical Examination: General: Awake alert oriented x3. Appears older than stated age. CV: S1, S2. Respiratory: Moving air well bilaterally. Abdomen: Soft, nontender, nondistended. Positive bowel sounds. Extremities: No clubbing, cyanosis, or edema. Left foot wrapped, cellulitis significantly improved. Neurologic: Nonfocal. Total time spent discharging patient was 32 minutes. RAS Voice ID: [id number] Report ID: [id number]
== END 2019-08-17 16:28 | disposition home or self-care (01) | DRG 871 ==
LOC: ER 08:41 → ERHOLD 11:16 → 2ND 16:38
PROVIDERS: ADMIT Family Medicine; ATTEND Family Medicine
DX: A41.9 Sepsis, unspecified organism (principal); J18.9 Pneumonia, unspecified organism; L03.116 Cellulitis of left lower limb; M62.82 Rhabdomyolysis; E87.1 Hypo-osmolality and hyponatremia; I47.2 Ventricular tachycardia; L97.929 Non-pressure chronic ulcer of unspecified part of left lower leg with unspecified severity; N17.9 Acute kidney failure, unspecified; J44.0 Chronic obstructive pulmonary disease with (acute) lower respiratory infection; Z59.0 Homelessness; Z11.59 Encounter for screening for other viral diseases; Z79.899 Other long term (current) drug therapy; F17.210 Nicotine dependence, cigarettes, uncomplicated; Z71.6 Tobacco abuse counseling; E86.0 Dehydration; E83.42 Hypomagnesemia; I10 Essential (primary) hypertension; B19.20 Unspecified viral hepatitis C without hepatic coma; K21.9 Gastro-esophageal reflux disease without esophagitis; F15.10 Other stimulant abuse, uncomplicated; Z91.19 Patient's noncompliance with other medical treatment and regimen
CPT/HCPCS: 36415; 71045; 71046; 80048; 80053; 80061; 80076; 80202; 80307; 80320; 80329; 81003; 81015; 82150; 82550; 82553; 82565; 82947; 83605; 83690; 83735; 84145; 84439; 84443; 84484; 85025; 85610; 85730; 87040; 87070; 87081; 87804; 93005; 93306; 93971; 97161; 99285; J0692; J0744; J1650; J2405; J3475; J7030; J7040; J7606; U0002